=== PATIENT | male | born 1950 | race Caucasian/White ===

== ENCOUNTER → 2017-02-25 | Outpatient (CLI) | payer BC ==
[~2017-02-25] MED LIST: EPP3/2 IM
--- NOTE | 2017-02-25 12:44 | DIAGNOSTIC IMAGING REPORT ---
ULTRASOUND VENOUS DOPPLER ULTRASOUND LEFT LOWER EXTREMITY CLINICAL HISTORY: I86.8 Varicose veins COMPARISON STUDY: No previous studies for comparison. FINDINGS: Real-time and color flow Doppler imaging were performed. Flow was seen within the femoral, popliteal and calf veins with no intraluminal thrombus demonstrated. The saphenous vein is patent. There are patent superficial varicosities most pronounced within the medial left calf IMPRESSION: No evidence of left lower extremity DVT. Electronically signed by: Morris Damian M.D. 02/25/2017 12:43 PM Dictated Date/Time: 02/25/2017 12:42 PM
--- NOTE | 2017-03-02 12:01 | CODING QUERY MEDICAL NECESSITY ---
CQSUPPORTING DIAGNOSIS NEEDED A supporting diagnosis is required for the test/procedure performed on this patient in order for us to be reimbursed by the patient's insurance. Please provide a supporting diagnosis for the following test/procedure listed below next to the test name along with your signature. *If there is no additional diagnosis for this patient that would support the following test/procedure please document that below next to the test/procedure. Test(s)/Procedure(s) that require a supporting diagnosis: DOS 02/25/17 NON-INVASIVE PERIPHERAL VENOUS STUDY Provider Signature: Date: Thank you Dina Barrios Health Information Management Once completed, please kindly fax back to [phone] For questions please call [phone]
--- NOTE | 2017-03-02 12:08 | CODING QUERY MEDICAL NECESSITY ---
CQSUPPORTING DIAGNOSIS NEEDED A supporting diagnosis is required for the test/procedure performed on this patient in order for us to be reimbursed by the patient's insurance. Please provide a supporting diagnosis for the following test/procedure listed below next to the test name along with your signature. *If there is no additional diagnosis for this patient that would support the following test/procedure please document that below next to the test/procedure. Test(s)/Procedure(s) that require a supporting diagnosis: DOS 02/25/17 NON-INVASIVE PERIPHERAL VASCULAR STUDIES Provider Signature: Date: Thank you Dina Barrios Health Information Management Once completed, please kindly fax back to [phone] For questions please call [phone]
== END | disposition home or self-care (01) ==
LOC: C.ULTR 12:04
PROVIDERS: ATTEND Family Medicine
DX: I83.892 Varicose veins of left lower extremity with other complications (principal); M79.605 Pain in left leg

== ENCOUNTER → 2017-06-03 | Outpatient (CLI) | payer BC ==
[2017-06-03 13:03] LABS: ALT/SGPT 25 U/L (12-78); BLOOD UREA NITROGEN 16 mg/dl (7-18); BUN/CREATININE RATIO 12.8 (10-20); CARBON DIOXIDE 27 mmol/L (21-32); CHLORIDE 104 mmol/L (98-107); CHOLESTEROL 244 mg/dl (0-200); CREATININE 1.24 mg/dl (0.60-1.40); GLUCOSE 92 mg/dl (70-99); POTASSIUM 4.2 mmol/L (3.5-5.1); SODIUM 140 mmol/L (136-145)
[2017-06-03 13:06] LABS: ALKALINE PHOSPHATASE 37 U/L (45-117); AST/SGOT 20 U/L (15-37); CHOLESTEROL/HDL RATIO 3.7; HDL CHOLESTEROL 66 mg/dl; LDL CHOLESTEROL CALCULATED 160 mg/dl; TRIGLYCERIDES 91 mg/dl (0-150); VERY LOW DENSITY LIPOPROT CALC 18 mg/dl
== END | disposition home or self-care (01) ==
LOC: C.LABPVFM 09:12
PROVIDERS: ATTEND Family Medicine
DX: Z13.220 Encounter for screening for lipoid disorders (principal); Z13.1 Encounter for screening for diabetes mellitus; Z12.5 Encounter for screening for malignant neoplasm of prostate

== ENCOUNTER 2017-07-10 04:18 | Emergency (ER) | payer BC ==
[~2017-07-10] VITALS: Ht 182.9 cm; Wt 72.2 kg
[2017-07-10] MEDS ORDERED: ETOMIDATE 2 MG/ML 20 ML VIAL IV ONE (04:20)
[2017-07-10] MEDS ORDERED: FENTANYL CITRATE 100 MCG 2 ML CARP IV ONE (04:20)
[2017-07-10] MEDS ORDERED: SUCCINYLCHOLINE CHLORIDE 20 MG/ML 10 ML VIAL IV ONE (04:20)
[2017-07-10] MEDS ORDERED: MIDAZOLAM HCL 5 MG/ML 2ML VIAL IV ONE (04:20)
[2017-07-10 04:27] VITALS: Ht 182.9 cm; Wt 72.2 kg
--- NOTE | 2017-07-10 04:29 | EMERGENCY ROOM VISIT NOTE ---
History Report prepared by Char: Ellis Callahan Under the Supervision of: Dr. Javy Robertson M.D. First contact with patient: 04:23 Chief Complaint: STROKE SYMPTOMS Stated Complaint: CAN'T USE LEFT ARM History of Present Illness The patient is a 66 year old male who presents to the Emergency Room with stroke -like symptoms that began 1 hour ago. This HPI is limited secondary to the patient's altered mental status. Per the patient's family, he and his got back from the bar at 2130 last night. His denies any injury, trauma, falls , or fights. He then woke up from sleep 1 hour ago complaining of left-sided tingling and a left-side headache. His speech then began to slur as he progressively worsened and EMS was called. When they arrived, he was minimally responsive. En route, the patient vomited. He does not have a history of diabetes. 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 Source of History: family History Limited By: AMS Onset: 1 hour ago Position: other (Global) Symptom Intensity: moderate Quality: other (Stroke-like symptoms) Timing: constant Associated Symptoms: + headache, + vomiting, + numbness (Left sided) Note: He has a speech slur. Review of Systems ROS is limited secondary to the patient's altered mental status. Past Medical & Surgical Medical Problems: (1) Cervical arthritis Family History Omitted secondary to the patient's age. Social History Smoking Status: Former Smoker Smokeless Tobacco Use: No Alcohol Use: occasionally Marital Status: Housing Status: lives with family Current/Historical Medications Scheduled PRN Epinephrine (Epipen), 0.3 MG IM UD PRN for BEE STINGS Allergies Coded Allergies: BEE STING (Verified Allergy, Severe, ANAPHYLAXIS, 05/25/17) NO KNOWN DRUG ALLERGIES (Verified Allergy, Unknown, ., 05/25/17) Physical Exam Vital Signs Date Time Temp Pulse Resp B/P (MAP) Pulse Ox O2 Delivery O2 Flow Rate FiO2 07/10/17 05:50 70 16 141/81 100 07/10/17 05:46 68 16 134/75 100 Mechanical Ventilator 07/10/17 05:41 70 16 134/71 100 07/10/17 05:35 70 16 141/76 100 07/10/17 05:32 68 16 160/87 100 Mechanical Ventilator 07/10/17 05:27 74 16 156/79 100 07/10/17 05:23 75 16 171/80 100 07/10/17 05:16 79 16 178/108 100 07/10/17 05:13 73 15 100 07/10/17 05:11 152/86 07/10/17 05:08 66 16 100 07/10/17 05:06 100 07/10/17 05:06 150/84 07/10/17 05:03 68 16 100 07/10/17 05:02 159/78 07/10/17 05:02 37.7 07/10/17 05:00 77 16 159/78 100 Mechanical Ventilator 07/10/17 05:00 180/90 07/10/17 04:58 78 18 100 07/10/17 04:53 78 18 100 07/10/17 04:48 65 07/10/17 04:48 84 18 100 07/10/17 04:45 100 07/10/17 04:43 72 19 99 07/10/17 04:38 72 20 98 07/10/17 04:37 162/91 07/10/17 04:37 99 Room Air 07/10/17 04:36 69 16 162/91 99 Room Air 07/10/17 04:27 37.7 66 18 171/86 98 Room Air 07/10/17 04:26 171/86 07/10/17 04:20 84 20 97 Room Air Physical Exam GENERAL: Patient is altered with a GCS of less than 8. Periodically follows commands with his right hand. HEENT: No acute trauma, normocephalic atraumatic, mucous membranes moist, no nasal congestion, no scleral icterus. Equal pupils though sluggish. NECK: No stridor, no adenopathy, no meningismus, trachea is midline. LUNGS: Sonorous respirations. HEART: Regular rate and rhythm. No murmurs, rubs, gallops appreciated. ABDOMEN: Soft, nontender, bowel sounds positive, no masses appreciated, no peritonitis. BACK: No midline tenderness, no CVA tenderness EXTREMITIES: Abrasion over the left shoulder. Abrasion to the left hand and left knee. Left masters contusion. NEUROLOGIC: Left sided facial droop. Inability to use left arm. No reaction in left leg. SKIN: No rash, no jaundice, no diaphoresis. Medical Decision & Procedures ER Provider Diagnostic Interpretation: Radiology results and stated below per my review and radiologist interpretation: 1 VIEW CHEST X-RAY: No pneumothorax, no pneumonia, normal cardiac border, midline ET tube in proper position, no obvious clavicle nor rib fractures. Per me CT HEAD: Verbal read from STAT RAD Dr. Lr who notes bilateral ventricular bleed likely thalamic in origin. Laboratory Results 07/10/17 04:27 Red Blood Count 5.13, Mean Corpuscular Volume 92.4, Mean Corpuscular Hemoglobin 32.0, Mean Corpuscular Hemoglobin Concent 34.6, Mean Platelet Volume 9.7, Neutrophils (%) (Auto) 46.9, Lymphocytes (%) (Auto) 38.5, Monocytes (%) (Auto) 8.6, Eosinophils (%) (Auto) 5.7, Basophils (%) (Auto) 0.2, Neutrophils # (Auto) 4.02, Lymphocytes # (Auto) 3.30, Monocytes # (Auto) 0.74, Eosinophils # (Auto) 0.49, Basophils # (Auto) 0.02 07/10/17 04:27 Test 07/10/17 04:27 07/10/17 04:30 07/10/17 04:38 07/10/17 04:43 White Blood Count 8.58 K/uL (4.8-10.8) Red Blood Count 5.13 M/uL (4.7-6.1) Hemoglobin 16.4 g/dL (14.0-18.0) Hematocrit 47.4 % (42-52) Mean Corpuscular Volume 92.4 fL (80-100) Mean Corpuscular Hemoglobin 32.0 pg (25-34) Mean Corpuscular Hemoglobin Concent 34.6 g/dl (32-36) Platelet Count 212 K/uL (130-400) Mean Platelet Volume 9.7 fL (7.4-10.4) Neutrophils (%) (Auto) 46.9 % Lymphocytes (%) (Auto) 38.5 % Monocytes (%) (Auto) 8.6 % Eosinophils (%) (Auto) 5.7 % Basophils (%) (Auto) 0.2 % Neutrophils # (Auto) 4.02 K/uL (1.4-6.5) Lymphocytes # (Auto) 3.30 K/uL (1.2-3.4) Monocytes # (Auto) 0.74 K/uL (0.11-0.59) Eosinophils # (Auto) 0.49 K/uL (0-0.5) Basophils # (Auto) 0.02 K/uL (0-0.2) RDW Standard Deviation 43.3 fL (36.4-46.3) RDW Coefficient of Variation 12.8 % (11.5-14.5) Immature Granulocyte % (Auto) 0.1 % Immature Granulocyte # (Auto) 0.01 K/uL (0.00-0.02) Prothrombin Time 10.6 SECONDS (9.0-12.0) Prothromb Time International Ratio 1.0 (0.9-1.1) Activated Partial Thromboplast Time 25.7 SECONDS (21.0-31.0) Partial Thromboplastin Ratio 1.0 Est Creatinine Clear Calc Drug Dose 55.5 ml/min Estimated GFR () 64.2 Estimated GFR (Non- 55.4 BUN/Creatinine Ratio 10.6 (10-20) Calcium Level 8.5 mg/dl (8.5-10.1) Total Bilirubin 0.3 mg/dl (0.2-1) Direct Bilirubin 0.1 mg/dl (0-0.2) Aspartate Amino Transf (AST/SGOT) 17 U/L (15-37) Alanine Aminotransferase (ALT/SGPT) 22 U/L (12-78) Alkaline Phosphatase 34 U/L (45-117) Total Creatine Kinase 72 U/L (39-308) Creatine Kinase MB 1.0 ng/ml (0.5-3.6) Creatine Kinase MB Ratio 1.4 (0-3.0) Troponin I < 0.015 ng/ml (0-0.045) Total Protein 7.2 gm/dl (6.4-8.2) Albumin 3.6 gm/dl (3.4-5.0) Bedside Glucose 111 mg/dl (70-99) Bedside Hemoglobin 16.0 g/dl (14.0-18.0) Bedside Hematocrit 47 % (42-52) Bedside Sodium 142 mEq/L (135-144) Bedside Potassium 3.4 mEq/L (3.3-5.0) Bedside Chloride 103 mEq/L (101-112) Bedside Total CO2 26 mEq/l (24-31) Anion Gap 17.0 mmol/L (16-25) Bedside Blood Urea Nitrogen 15 mg/dl (7-18) Bedside Creatinine 1.2 mg/dl (0.6-1.3) Bedside Glucose (other) 123 mg/dl (70-99) Bedside Ionized Calcium (Christopher) 1.09 mmol/l (1.12-1.32) Ethyl Alcohol mg/dL < 3.0 mg/dl (0-3) Test 07/10/17 05:00 Urine Opiates Screen NEG (NEG) Urine Methadone, Qualitative NEG (NEG) Urine Barbiturates NEG (NEG) Urine Phencyclidine (PCP) Level NEG (NEG) Ur Amphetamine/Methamphetamine NEG (NEG) MDMA (Ecstasy) Screen NEG (NEG) Urine Benzodiazepines Screen NEG (NEG) Urine Cocaine Metabolite NEG (NEG) Urine Marijuana (THC) NEG (NEG) Influenza Type A Antigen Neg for Influ A (NEG) Influenza Type B Antigen Neg for Influ B (NEG) Laboratory results as reviewed by me. Medications Administered Medications (Trade) Dose Ordered Sig/Raisa Route Start Time Stop Time Status Last Admin Dose Admin Midazolam HCl (Versed Inj) 5 mg NOW STAT IV 07/10/17 04:48 07/10/17 04:49 DC 07/10/17 04:48 5 MG Fentanyl Citrate (Fentanyl Inj) 100 mcg NOW ONCE IV 07/10/17 05:00 07/10/17 05:01 DC 07/10/17 05:01 100 MCG Mannitol (Mannitol 25%) 50 gm NOW STAT IV 07/10/17 05:01 07/10/17 05:03 DC 07/10/17 05:15 50 GM Propofol (Diprivan Iv Emulsion 100ml Vial) 1 dose UD PRN IV 07/10/17 05:15 07/13/17 05:14 07/10/17 05:13 1 DOSE Fentanyl Citrate (Fentanyl Inj) 100 mcg NOW STAT IV 07/10/17 05:22 07/10/17 05:23 DC 07/10/17 05:27 100 MCG Midazolam HCl (Versed Inj) 5 mg NOW STAT IV 07/10/17 05:22 07/10/17 05:23 DC 07/10/17 05:28 5 MG Procedure Endotracheal Intubation Indication : Respiratory Failure/Protection of airway. The patient was on 100% oxygen via NRB prior to the procedure. Suction, airway equipment, RSI drugs, respiratory equipment, and appropriate personnel were prepared prior to the initiation of the procedure. A time out was taken. Induction was performed with Etomidate 20 mg and Succinylcholine 150 mg. After observing the clinical benefit of the medications, the airway was easily visualized utilizing a #4 glide-scope. A 8-0 size ETT tube was placed atraumatically to 25 cm at the teeth using standard technique. The cuff inflated without signs of malfunction. There were bilateral breath sounds, positive colormetric change, no gastric sounds, a good capnography waveform, and post procedure pulse oximetry was 100%. Post intubation sedation and paralysis was administered using Fentanyl and Versed. There were no complications. ECG Indication: weakness Rate (beats per minute): 65 Rhythm: normal sinus Findings: no acute ischemic change, no ectopy ED Course 0423: The patient was evaluated in room A1. A complete history and physical exam was performed. 0435: I discussed with the patient's family the need for an emergent intubation. After discussing, the family agrees to the procedure. 0438: Prior to the patient's intubation, I discussed the patient with [facility], Dr. Motta. I stated that I had to call them back as I was about to perform the intubation. The patient became worse in regards to obtundation and agonal respirations. He is not protecting his airway and started to develop inward movement/posturing of the left arm followed shortly thereafter by his right arm. He is also having increasing right pupillary size without reaction. 0440: I performed an intubation procedure at this time. Please see the procedure note for more information. 0459: The patient is now shivering and posturing. 0500: I spoke with Dr. Motta of [facility] again at this time. They accepted the patient for further evaluation and transfer to their facility. They agree with Mannitol and Propofol sedation. 0507: The patient's blood pressure is 150/76 and he is sedated. 0512: The patient's family is at bedside. We had a long discussion about the severity of the patient's condition. We are awaiting a return call from [facility]. 0522: They are now administering Mannitol and just started the Propofol. I asked for them to give some Versed and Fentanyl to bridge his sedation. 0528: [facility] is en route. 0547: The patient is stable. His right pupillary dilatation has improved but has not completely resolved. I continued discussing the case with his and daughter. Medical Decision Differential: Toxicological, Infectious, Stroke, SAH, Trauma, Electrolyte Abnormality, Hypoglycemia, Alcohol Intoxication, Drug Intoxication, Cardiac Abnormality, Sepsis, Meningitis/Encephalitis, Trauma, Excited Delirium, Serotonin Syndrome, Psychiatric, amongst other pathologies entertained. 66 yr old male with minimal PMH other than periodic Etoh use and is a smoker arrives for evaluation of acute left sided weakness and headache. Brought in by family after complaining of left paresthesias and headache around 3am that rapidly progressed. Family noted ETOH earlier in evening but had been at home for last 6+ hours without any further drinks. On arrival complete paralysis of left side with some following command and was protecting airway. Glucose OK, istat looked good and CT immediately done revealing large ICH bilateral ventricles. On return from CT rapidly worsening condition and leading to not protecting airway with obtundation and then while prepping for intubation developed left arm followed by right posturing and blown right pupil (non- reactive bilaterally). No clear seizure activity during this but difficult to tell as he periodically would have rigors (no clear infectious etiology and may be due to thalamic component bleed). He was intubated in standard fashion without difficulty. As he was posturing and likely herniating just prior to intubation I opted to start mannitol (which was also agreed by Neurosurgeon). Post intubation with versed/fentanyl until propofol fully effective. BP initially a bit high but not SBP>180 and was maintaining OK level for head bleed after sedation achieved. Discussed case with [facility] and will transfer via flight team. Patient remained stable throughout this with actually improvement in right pupillary dilatation though still minimally reactive. Throughout this I was in frequent contact with /daughter, and I was up front with fact he is quite ill and the grave concerns. Medication Reconcilliation Current Medication List: was personally reviewed by me Blood Pressure Screening Patient's blood pressure: Elevated blood pressure Monitored by accepting hospital Consults Time Called: [phone] Consulting Physician: Dr. Motta - [facility] Returned Call: [phone] They accepted the patient for further evaluation and management pending transfer. Impression Primary Impression: Intraventricular hemorrhage Additional Impressions: Respiratory failure Intracranial herniation Critical Care I have personally spent greater than 90 minutes of critical care time in the direct management of this patient. This was a life/limb threatening event. This includes time spent evaluating patient, direct bedside care, chart review, placing orders, interpretation of diagnostic studies, discussion with consultants, patient, and family members, as well as other required patient management activities. This 90 minutes is in excess of all separately billable procedures. Scribe Attestation The scribe's documentation has been prepared under my direction and personally reviewed by me in its entirety. I confirm that the note above accurately reflects all work, treatment, procedures, and medical decision making performed by me. Departure Information Dispostion Transfer Acute Care Facility Referrals Rosalva Gallegos M.D. (PCP) Forms HOME CARE DOCUMENTATION FORM, IMPORTANT VISIT INFORMATION Patient Instructions My [facility] Stroke History Time Last Known Well 1 hour ago (0330) Stroke t-PA Criteria Reviewed Does NOT meet criteria for t-PA Reason t-PA Not Given Treatment not indicated (Head bleed) Strict Exclusion Criteria CT findings of ICH or SAH Problem Qualifiers
[2017-07-10 04:37] VITALS: O2SAT 99
[2017-07-10] MEDS ORDERED: RAPID SEQUENCE INDUCTION BAG ONE (04:37)
[2017-07-10 04:41] LABS: BASO % 0.2 %; BASO ABS # 0.02 K/uL (0-0.2); EOS % 5.7 %; EOS ABS # 0.49 K/uL (0-0.5); HEMATOCRIT 47.4 % (42-52); HEMOGLOBIN 16.4 g/dL (14.0-18.0); IG# 0.01 K/uL (0.00-0.02); LYMPH % 38.5 %; MEAN CELL VOLUME 92.4 fL (80-100); MEAN CORPUSCULAR HGB CONC 34.6 g/dl (32-36); MEAN PLATELET VOLUME 9.7 fL (7.4-10.4); MONO % 8.6 %; MONO ABS # 0.74 K/uL (0.11-0.59); NEUT % 46.9 %; NEUT ABS # 4.02 K/uL (1.4-6.5); PLATELET COUNT 212 K/uL (130-400); RED CELL DISTRIBUTION WIDTH CV 12.8 % (11.5-14.5); RED CELL DISTRIBUTION WIDTH SD 43.3 fL (36.4-46.3); WHITE BLOOD COUNT 8.58 K/uL (4.8-10.8)
[2017-07-10] MEDS ORDERED: MIDAZOLAM HCL 5 MG/ML 1 ML VIAL IV STA (04:48)
[2017-07-10 04:49] LABS: PTT PATIENT 25.7 SECONDS (21.0-31.0)
[2017-07-10 04:50] LABS: ISTAT CREATININE 1.2 mg/dl (0.6-1.3); ISTAT IONIZED CALCIUM 1.09 mmol/l (1.12-1.32); ISTAT POTASSIUM 3.4 mEq/L (3.3-5.0)
[2017-07-10 04:59] LABS: POTASSIUM 3.3 mmol/L (3.5-5.1); SODIUM 139 mmol/L (136-145)
[2017-07-10] MEDS ORDERED: FENTANYL CITRATE INJ 50 MCG/1 ML 2 ML VIAL IV ONE (05:00)
[2017-07-10] MEDS ORDERED: MANNITOL 25% 50 ML VIAL IV STA (05:01)
[2017-07-10 05:02] VITALS: TEMP 37.7
[2017-07-10 05:05] LABS: BLOOD UREA NITROGEN 14 mg/dl (7-18); CALCIUM 8.5 mg/dl (8.5-10.1); CARBON DIOXIDE 27 mmol/L (21-32); CREATININE 1.32 mg/dl (0.60-1.40); GLUCOSE 120 mg/dl (70-99)
[2017-07-10 05:09] LABS: ALBUMIN 3.6 gm/dl (3.4-5.0); ALKALINE PHOSPHATASE 34 U/L (45-117); ALT/SGPT 22 U/L (12-78); AST/SGOT 17 U/L (15-37); TOTAL PROTEIN 7.2 gm/dl (6.4-8.2)
[2017-07-10] MEDS ORDERED: PROPOFOL IV EMULSION 10 MG/ML 100 ML VIAL IV PRN (05:15)
[2017-07-10] MEDS ORDERED: FENTANYL CITRATE INJ 50 MCG/1 ML 2 ML VIAL IV STA (05:22)
[2017-07-10] MEDS ORDERED: MIDAZOLAM HCL 1 MG/ML 2ML VIAL IV STA (05:22)
[2017-07-10 05:50] VITALS: BP 141/81; PULSE 70; O2SAT 100
[2017-07-10 05:50] LABS: INFLUENZA B ANTIGEN Neg for Influ B (NEG)
--- NOTE | 2017-07-10 07:22 | DIAGNOSTIC IMAGING REPORT ---
CT HEAD WITHOUT CONTRAST (CT) CLINICAL HISTORY: Stroke. Left arm paralysis. COMPARISON STUDY: No previous studies for comparison. TECHNIQUE: Axial CT of the brain is performed from the vertex to the skull base. IV contrast was not administered for this examination. A dose lowering technique was utilized adhering to the principles of ALARA. CT DOSE: 614.27 mGy.cm FINDINGS: There is no CT evidence of acute cortical infarction. There is a 3 cm hemorrhage involving the right and central midbrain with extension to the right thalamus. There is intraventricular blood within the lateral third and fourth ventricles. There is mild mass effect with very slight leftward shift of the third ventricle. There are patchy white matter hypodensities likely on a small vessel basis. There is no evidence of acute sinusitis IMPRESSION: 1. Acute right thalamic and midbrain hemorrhage measuring 3 cm. 2. Intraventricular extension of hemorrhage 3. Mild hydrocephalus 4. 5 mm of maximal right to left midline shift Electronically signed by: Morris Damian M.D. 07/10/2017 7:21 AM Dictated Date/Time: 07/10/2017 7:17 AM
--- NOTE | 2017-07-10 08:13 | DIAGNOSTIC IMAGING REPORT ---
CHEST ONE VIEW PORTABLE CLINICAL HISTORY: Stroke. Respiratory failure. COMPARISON STUDY: 07/30/2012 FINDINGS: There is an endotracheal tube 37 mm above the serina. The heart is normal in size. There is no focal pulmonary consolidation. No pleural effusions are visualized. There is no failure. There is a 1 cm opacity at the right lung base. This likely represents a nipple shadow.[ IMPRESSION: 1. Endotracheal tube 37 mm above the serina. No evidence of focal pulmonary consolidation. Electronically signed by: Morris Damian M.D. 07/10/2017 8:12 AM Dictated Date/Time: 07/10/2017 8:11 AM
--- NOTE | 2017-07-13 08:55 | NUR ---
Stroke alert cancelled at 0436 on 07/[address] findings.
[2017-09-06] MEDS ORDERED: AMLO5TAB3 PEG (00:08)
== END 2017-07-10 05:10 | disposition short-term general hospital (02) ==
LOC: C.EDB 04:19 → C.EDA 05:10
DX: I61.5 Nontraumatic intracerebral hemorrhage, intraventricular (principal); J96.90 Respiratory failure, unspecified, unspecified whether with hypoxia or hypercapnia; G93.5 Compression of brain; G81.94 Hemiplegia, unspecified affecting left nondominant side; R29.810 Facial weakness; R47.81 Slurred speech; M47.812 Spondylosis without myelopathy or radiculopathy, cervical region; S40.212A Abrasion of left shoulder, initial encounter; S60.512A Abrasion of left hand, initial encounter; S80.212A Abrasion, left knee, initial encounter; S80.12XA Contusion of left lower leg, initial encounter; X58.XXXA Exposure to other specified factors, initial encounter; F17.210 Nicotine dependence, cigarettes, uncomplicated

== ENCOUNTER 2017-09-05 21:25 | Emergency (ER) | payer BC ==
[~2017-09-05] VITALS: Ht 177.8 cm; Wt 68.0 kg
[2017-09-05] MEDS ORDERED: SODIUM CHLORIDE 0.9% 1000ML 1,000 ML IV STA (21:38)
[2017-09-05 21:48] VITALS: Ht 177.8 cm; Wt 68.0 kg
--- NOTE | 2017-09-05 21:55 | EMERGENCY ROOM VISIT NOTE ---
History Report prepared by Char: Mook Sanchez Under the Supervision of: Dr. Kim Rizo M.D. First contact with patient: 21:32 Chief Complaint: GI ASSESSMENT Stated Complaint: GI ASSESSMENT History of Present Illness The patient is a 66 year old male who presents to the Emergency Room with complaints of intermittent vomiting beginning 7.5 hours ago. The patient's states the patient vomited three times today, and it was coffee ground. She reports the patient's vomit was tested, and it was positive for blood. The notes the patient will cough, start to gag, and then he would vomit. She states he lives at [facility]. The reports the patient vomits after he is laid down flat in the bed. 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 The states the patient the patient had stuff pulled out of his stomach after feeding , and it was a frederick color. She reports he had a headache, but it has resolved. The notes the patient's cough is not "forceful," but he vomits after he coughs a lot as well. She states the patient was admitted in 2013 for diarrhea and vomiting. The reports the patient has stopped smoking 2 years ago. Source of History: patient Onset: 7.5 hours ago Position: other (global) Quality: other (vomiting) Timing: intermittent Associated Symptoms: No headache (resolved) Note: Associated symptoms: blood in vomit, frederick brown color from his stomach Review of Systems See HPI for pertinent positives & negatives. A total of 10 systems reviewed and were otherwise negative. Past Medical & Surgical Medical Problems: (1) Cervical arthritis Family History Patient reports no known family medical history. Social History Smoking Status: Former Smoker Alcohol Use: occasionally Marital Status: Housing Status: assisted living Occupation Status: retired Current/Historical Medications Scheduled Amlodipine (Norvasc), 5 MG PEG QAM Artificial Saliva (Oral Relief Menan For Dry), 2 SPRAYS PO Q4 Docusate Sodium (Docusate Sodium), 100 MG PEG AMHS Doxazosin Mesylate (Cardura), 2 MG PEG QAM Enoxaparin (Lovenox), 30 MG SQ Q12H Enteral Nutrition Formula (Jevity 1.5 Valentín), 120 ML PEG TID Nutritional Supplements (Jevity 1.5 Valentín), HS Omeprazole (Prilosec), 20 MG PEG QAM Sennosides (Senna), 5 ML PEG QAM [peg tube flush], 30 ML PEG TID [peg tube flush], 30 ML PEG TID [peg tube flush], 200 ML PEG TID Scheduled PRN Acetaminophen (Tylenol Children's Susp), 650 MG PEG Q4 PRN for Pain or Fever Promethazine (Phenergan Suppository), 25 MG AL Q6H PRN for Nausea Allergies Coded Allergies: BEE STING (Verified Allergy, Severe, ANAPHYLAXIS, 09/05/17) NO KNOWN DRUG ALLERGIES (Verified Allergy, Unknown, ., 09/05/17) Physical Exam Vital Signs Date Time Temp Pulse Resp B/P (MAP) Pulse Ox O2 Delivery O2 Flow Rate FiO2 09/06/17 02:39 37.1 93 20 122/67 95 09/06/17 02:03 93 20 122/67 95 Room Air 09/06/17 01:15 93 22 148/82 09/06/17 01:13 83 09/05/17 23:47 86 20 136/104 95 Room Air 09/05/17 22:41 76 22 127/84 94 Room Air 09/05/17 21:57 77 09/05/17 21:48 37.1 82 20 127/84 Room Air Physical Exam Vital signs reviewed. General: Well-appearing 66 year old male, in no significant distress. Moist cough. HEENT: No scleral icterus, PERRLA, neck supple. Atraumatic. Cardiovascular: Regular rate and rhythm, no extra sounds. Pulmonary: Poor inspiratory effort, but generally clear lungs otherwise. Moist cough. Abdomen: Soft, nontender, nondistended, positive bowel sounds. Feeding tube to the mid-abdomen. Rectal: Soft, light, brown stool in the rectum with no blood appreciated. No impaction appreciated. Musculoskeletal: Atraumatic, no peripheral edema. Neurologic: Patient awake alert and oriented x 3. Left upper and lower extremity hemiplegia. Skin: Warm, dry, no rash Medical Decision & Procedures ER Provider Diagnostic Interpretation: Radiology results as stated below per my review and radiologist interpretation: CHEST ONE VIEW PORTABLE CLINICAL HISTORY: vomiting, congestion nausea. Vomiting. COMPARISON STUDY: 07/10/2017 FINDINGS: Mild stable cardia megaly. Drainage catheter possibly representing a shunt catheter overlying the right hemithorax. Lungs are clear. Minimal chronic atelectatic change left base. IMPRESSION: Chronic change. No acute process. The above report was generated using voice recognition software. It may contain grammatical, syntax or spelling errors. Electronically signed by: Christiano eWstfall M.D. 09/05/2017 9:52 PM Dictated Date/Time: 09/05/2017 9:[address] HEAD: Comparison is made to prior CT head on 07/10/2017. Interval placement of a right frontal approach ventriculoperitoneal shunt catheter which terminates near the foramen of Valadez. Decreased size of the ventricles without evidence of ventriculomegaly. No acute intracranial abnormality identified. Resolution of previously visualized hemorrhage. Encephalomalacia in the right midbrain and thalamus in the region of prior hemorrhage. Mild chronic small vessel ischemic disease and cerebral volume loss. Right lens implant. Small polyp versus mucous retention cyst in the left maxillary sinus. Radiologist: Naif Mederos MD Study ready at 2331 and initial results transmitted at 0000. CT ABDOMEN & PELVIS with contrast: Comparison is made to prior CT abdomen/pelvis on 07/31/12. Trace bilateral pleural effusions. Associated atelectasis. Similar to slightly increased size of probably hemangiomas in the liver. Suggestion of hypodense stones in the gallbladder. No CT evidence of acute cholecystitis. Small hiatal hernia. Small left renal cyst. Small hypodensities in the right kidney are too small to definitively characterize. No hydronephrosis or stone. Ventriculoperitoneal shunt catheter terminates in the left pelvis. Trace free fluid in the pelvis. Mild prostatomegaly. Moderate stool in the rectum with minimal perirectal fat stranding and trace presacral fluid may represent fecal impaction with mild stercoral inflammation. G-tube in place. No bowel obstruction. Mild prominence of fluid and gas-filled small bowel loops are nonspecific but may represent enteritis. Chronic appearing deformity of the left ilium. Radiologist: Naif Mederos MD Study ready at 2333 and initial results transmitted at 0009. Laboratory Results 09/05/17 21:58 Red Blood Count 5.55, Mean Corpuscular Volume 91.4, Mean Corpuscular Hemoglobin 31.5, Mean Corpuscular Hemoglobin Concent 34.5, Mean Platelet Volume 10.6, Neutrophils (%) (Auto) 81.7, Lymphocytes (%) (Auto) 11.6, Monocytes (%) (Auto) 5.9, Eosinophils (%) (Auto) 0.6, Basophils (%) (Auto) 0.1, Neutrophils # (Auto) 8.07, Lymphocytes # (Auto) 1.14, Monocytes # (Auto) 0.58, Eosinophils # (Auto) 0.06, Basophils # (Auto) 0.01 09/05/17 21:58 Test 09/05/17 21:58 09/05/17 22:03 White Blood Count 9.87 K/uL (4.8-10.8) Red Blood Count 5.55 M/uL (4.7-6.1) Hemoglobin 17.5 g/dL (14.0-18.0) Hematocrit 50.7 % (42-52) Mean Corpuscular Volume 91.4 fL (80-100) Mean Corpuscular Hemoglobin 31.5 pg (25-34) Mean Corpuscular Hemoglobin Concent 34.5 g/dl (32-36) Platelet Count 177 K/uL (130-400) Mean Platelet Volume 10.6 fL (7.4-10.4) Neutrophils (%) (Auto) 81.7 % Lymphocytes (%) (Auto) 11.6 % Monocytes (%) (Auto) 5.9 % Eosinophils (%) (Auto) 0.6 % Basophils (%) (Auto) 0.1 % Neutrophils # (Auto) 8.07 K/uL (1.4-6.5) Lymphocytes # (Auto) 1.14 K/uL (1.2-3.4) Monocytes # (Auto) 0.58 K/uL (0.11-0.59) Eosinophils # (Auto) 0.06 K/uL (0-0.5) Basophils # (Auto) 0.01 K/uL (0-0.2) RDW Standard Deviation 45.2 fL (36.4-46.3) RDW Coefficient of Variation 13.5 % (11.5-14.5) Immature Granulocyte % (Auto) 0.1 % Immature Granulocyte # (Auto) 0.01 K/uL (0.00-0.02) Prothrombin Time 10.5 SECONDS (9.0-12.0) Prothromb Time International Ratio 1.0 (0.9-1.1) Activated Partial Thromboplast Time 32.1 SECONDS (21.0-31.0) Partial Thromboplastin Ratio 1.2 Anion Gap 10.0 mmol/L (3-11) Est Creatinine Clear Calc Drug Dose 79.2 ml/min Estimated GFR () 103.5 Estimated GFR (Non- 89.3 BUN/Creatinine Ratio 17.2 (10-20) Calcium Level 9.5 mg/dl (8.5-10.1) Magnesium Level 2.2 mg/dl (1.8-2.4) Total Bilirubin 0.4 mg/dl (0.2-1) Direct Bilirubin 0.1 mg/dl (0-0.2) Aspartate Amino Transf (AST/SGOT) 48 U/L (15-37) Alanine Aminotransferase (ALT/SGPT) 100 U/L (12-78) Alkaline Phosphatase 57 U/L (45-117) Total Protein 8.6 gm/dl (6.4-8.2) Albumin 3.3 gm/dl (3.4-5.0) Lipase 195 U/L (73-393) Bedside Troponin I < 0.030 ng/ml (0-0.045) Laboratory results per my review. Medications Administered Medications (Trade) Dose Ordered Sig/Raisa Route Start Time Stop Time Status Last Admin Dose Admin Sodium Chloride 1,000 ml @ 150 mls/hr Q6H40M STAT IV 09/05/17 21:38 09/06/17 03:05 DC 09/05/17 21:38 150 MLS/HR Ondansetron HCl (Zofran Inj) 4 mg NOW STAT IV 09/05/17 22:56 09/05/17 22:57 DC 09/05/17 22:56 4 MG Promethazine HCl 12.5 mg/Sodium Chloride 50.5 ml @ 204 mls/hr NOW STAT IV 09/06/17 00:53 09/06/17 01:07 DC 09/06/17 01:14 204 MLS/HR ECG Per My Interpretation Indication: nausea Rate (beats per minute): 87 Rhythm: normal sinus Findings: no acute ischemic change, no ectopy, other (Normal axis. Normal intervals.) ED Course 2136: Past medical records reviewed. The patient was evaluated in room B03B. A complete history and physical examination was performed. 2137: Ordered Sodium Chloride 1000 ml @ 150 mls/hr IV 2256: Ordered Ondansetron HCl 4mg IV 0031: Upon reevaluation, the patient appeared to have improvement of his symptoms. I discussed findings with him and his . They verbalized agreement of the treatment plan. The patient will be discharged to [facility] when transport arrives. 0053: Ordered Promethazine HCl 12.5 mg/Sodium Chloride 50.5 ml @ 204 mls/hr IV 0100: Ordered Ondansetron HCl 1 homepack PO Medical Decision Differential diagnosis: Etiologies such as gastroenteritis, food borne illness, infections, appendicitis , diverticulitis, inflammatory bowel disease, obstruction, GI bleed, biliary pathology, as well as others were entertained. This patient was evaluated and appeared to be in no significant distress. IV access was obtained and laboratory work was drawn. The patient was hydrated with normal saline solution. He was given Zofran 4 mg IV for nausea. Physical examination reveals chronically ill man with a PEG tube patient recently had a hemorrhagic stroke. Patient denied any amount of nausea on my exam. His abdominal exam is fairly benign. 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 CT scan of the abdomen and pelvis was performed and is read as above. There is no acute pathology to explain the vomiting. Patient's laboratory work reveals only slightly elevated liver enzymes. The patient did vomit while in the emergency department. He was then given Phenergan 12.5 mg IV with good results. CT scan of the abdomen and pelvis is concerning for a fecal impaction however rectal exam reveals soft stool without evidence of gross blood. Chest x -ray was performed to evaluate for evidence of aspiration however this study is negative. Patient's states that he is on tube feeds exclusively and is on a pretty significant bowel regimen. I suspect the vomiting is likely viral in etiology. They will need to continue checking residual volumes prior to tube feeds. Patient was discharged with a prescription for Phenergan suppositories to be used as needed for nausea. He'll follow-up with the PCP for reevaluation this week and return to the ER for worsening of symptoms or any medical concerns. Medication Reconcilliation Current Medication List: was personally reviewed by me Blood Pressure Screening Patient's blood pressure: Elevated blood pressure Blood pressure disposition: Elevated BP felt to be situational Impression Primary Impression: Coffee ground emesis Scribe Attestation The scribe's documentation has been prepared under my direction and personally reviewed by me in its entirety. I confirm that the note above accurately reflects all work, treatment, procedures, and medical decision making performed by me. Departure Information Dispostion Home / Self-Care Prescriptions Promethazine (Phenergan Suppository) 25 Mg Supp 25 MG AL Q6H Y for Nausea, #10 SUPP Prov: Kim Rizo M.D. 09/06/17 Referrals Rosalva Gallegos M.D. (PCP) Forms HOME CARE DOCUMENTATION FORM, IMPORTANT VISIT INFORMATION Patient Instructions My [facility] Additional Instructions Diagnosis: Coffee-ground emesis Increase the Prilosec to 20 mg twice daily for the next 2 weeks. Phenergan suppository every 6 hours as needed for nausea. Monitor for blood in the stools. Monitor for residual volumes between feeds. Follow-up with your physician this week for reevaluation. Return to the ER for worsening of symptoms or any medical concerns.
[2017-09-05 22:08] LABS: BASO % 0.1 %; BASO ABS # 0.01 K/uL (0-0.2); EOS % 0.6 %; EOS ABS # 0.06 K/uL (0-0.5); HEMATOCRIT 50.7 % (42-52); HEMOGLOBIN 17.5 g/dL (14.0-18.0); IG# 0.01 K/uL (0.00-0.02); LYMPH % 11.6 %; LYMPH ABS # 1.14 K/uL (1.2-3.4); MEAN CELL VOLUME 91.4 fL (80-100); MEAN CORPUSCULAR HEMOGLOBIN 31.5 pg (25-34); MEAN CORPUSCULAR HGB CONC 34.5 g/dl (32-36); MEAN PLATELET VOLUME 10.6 fL (7.4-10.4); MONO % 5.9 %; MONO ABS # 0.58 K/uL (0.11-0.59); NEUT % 81.7 %; NEUT ABS # 8.07 K/uL (1.4-6.5); PLATELET COUNT 177 K/uL (130-400); RED CELL DISTRIBUTION WIDTH CV 13.5 % (11.5-14.5); RED CELL DISTRIBUTION WIDTH SD 45.2 fL (36.4-46.3); WHITE BLOOD COUNT 9.87 K/uL (4.8-10.8)
[2017-09-05 22:19] LABS: PTT PATIENT 32.1 SECONDS (21.0-31.0)
[2017-09-05 22:24] LABS: ALBUMIN 3.3 gm/dl (3.4-5.0); CALCIUM 9.5 mg/dl (8.5-10.1); CREATININE 0.87 mg/dl (0.60-1.40); POTASSIUM 4.4 mmol/L (3.5-5.1)
[2017-09-05 22:27] LABS: TOTAL PROTEIN 8.6 gm/dl (6.4-8.2)
[2017-09-05] MEDS ORDERED: ONDANSETRON INJ 2 MG/ML 2 ML VIAL IV STA (22:56)
[2017-09-05] MEDS ORDERED: SENN8.8S5 PEG (23:56)
[2017-09-05] MEDS ORDERED: OMEP20CA59 PEG (23:58)
[2017-09-05] MEDS ORDERED: OMEP20TA14 PO (23:58)
[2017-09-05] MEDS ORDERED: ENOX30IN4 SQ (23:59)
[2017-09-06] MEDS ORDERED: NUTR-673 PEG (00:05)
[2017-09-06] MEDS ORDERED: NUTR-673 (00:05)
[2017-09-06] MEDS ORDERED: ACET5LIQ PEG (00:08)
[2017-09-06] MEDS ORDERED: AMLO-110 PEG (00:08)
[2017-09-06] MEDS ORDERED: DOXA2TAB PEG (00:11)
[2017-09-06] MEDS ORDERED: DOCU5LIQ PEG (00:11)
[2017-09-06] MEDS ORDERED: ARTI1SPR3 PO (00:13)
[2017-09-06] MEDS ORDERED: [UNRECOGNIZED DRUG - OTHER] PEG (00:23)
[2017-09-06] MEDS ORDERED: PROMETHAZINE HCL INJ 12.5 MG in SODIUM CHLORIDE 0.9% 50ML 50 ML IV STA (00:53)
[2017-09-06] MEDS ORDERED: PROM1SUP19 PR (00:56)
[2017-09-06] MEDS ORDERED: ONDANSETRON HOME PACK 4MG OD TAB PO ONE (01:00)
[2017-09-06 02:39] VITALS: BP 122/67; PULSE 93; TEMP 37.1; O2SAT 95
--- NOTE | 2017-09-06 06:37 | DIAGNOSTIC IMAGING REPORT ---
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 IV contrast was not administered for this examination. A dose lowering technique was utilized adhering to the principles of ALARA. CT DOSE: 1151.75 mGy.cm FINDINGS: There has been interval placement of a right frontal ventriculostomy catheter. Tip terminates near the roof of the third ventricle. There is been resolution of the previously described periventricular and parenchymal hemorrhage. There is a secondary area of encephalomalacia within the right midbrain and thalamus. There is no evidence of acute hemorrhage. There is no evidence of acute cortical infarction. There is no midline shift. There are minor white matter hypodensities likely on a small vessel basis. There is significant interval decrease in ventricular size. Over shunting cannot be excluded and must be correlated clinically. There is no evidence of acute sinusitis IMPRESSION: 1. Resolution of the previously identified hemorrhage 2. Area of encephalomalacia within the right midbrain and thalamus 3. No acute hemorrhage 4. Interval placement of a right frontal ventriculostomy catheter 5. Significant interval decrease in ventricular size. Over shunting cannot be excluded. Clinical correlation in this regard is advocated Electronically signed by: Morris Damian M.D. 09/06/2017 6:36 AM Dictated Date/Time: 09/06/2017 6:32 AM
--- NOTE | 2017-09-06 08:11 | DIAGNOSTIC IMAGING REPORT ---
ABDOMEN AND PELVIS CT WITH IV CONTRAST CT DOSE: 502.96 mGy.cm HISTORY: vomiting, recent CVA, coffeee ground emesis TECHNIQUE: Multiaxial CT images of the abdomen and pelvis were performed following the use of intravenous contrast. A dose lowering technique was utilized adhering to the principles of ALARA. COMPARISON STUDY: Abdomen and pelvis CT 07/31/2012. FINDINGS: Mild dependent changes seen at the lung bases. No pneumoperitoneum. No pneumatosis. Ventriculoperitoneal shunt catheter terminates in the left deep pelvis. A gastrostomy tube is in good position. No suspicious lytic or blastic osseous lesions. Mild thickening of the distal esophagus. Mild motion artifact. Normal bladder. The prostate gland is mildly enlarged. Moderate to large stool ball within the rectum measuring 6.7 cm. Mild to moderate rectal wall thickening with mild perirectal edema. This is best seen on image 77. The gallbladder, spleen, adrenal glands, and pancreas are unremarkable. No hydronephrosis. Bilateral renal hypodense lesions favor cysts. There are 2 lesions within the right hepatic lobe which demonstrate discontinuous peripheral nodular enhancement. These are stable to slightly increased in size and therefore likely represent hemangiomas. The largest lesion measures 2.9 cm. No dilated loops of bowel to suggest an obstruction. Moderate well-formed stool seen throughout the colon. No retroperitoneal lymphadenopathy. IMPRESSION: 1. Moderate to large stool ball within the rectum with mild to moderate rectal wall thickening and mild perirectal edema. This suggests a nonspecific proctitis, possibly representing mild stercoral inflammation. 2. No evidence for bowel obstruction. 3. Additional findings as described above. Electronically signed by: Chetan Sullivan M.D. 09/06/2017 8:10 AM Dictated Date/Time: 09/06/2017 8:04 AM
== END 2017-09-06 02:41 | disposition home or self-care (01) ==
LOC: EDBD 21:25 → C.EDB 21:29
DX: K92.0 Hematemesis (principal); Z87.891 Personal history of nicotine dependence; Z91.030 Bee allergy status

== ENCOUNTER → 2017-11-16 | Outpatient (CLI) | payer BC ==
[~2017-11-16] MED LIST changes: +ACET5LIQ PEG; +AMLO-110 PEG; +ARTI1SPR3 PO; +DOCU5LIQ PEG; +DOXA2TAB PEG; +ENOX30IN4 SQ; -EPP3/2 IM; +NUTR-673; +NUTR-673 PEG; +OMEP20CA59 PEG; +PROM1SUP19 PR; +SENN8.8S5 PEG; +[UNRECOGNIZED DRUG - OTHER] PEG
[2017-11-16 17:17] LABS: BASO % 0.2 %; BASO ABS # 0.02 K/uL (0-0.2); EOS % 1.7 %; EOS ABS # 0.14 K/uL (0-0.5); HEMATOCRIT 50.1 % (42-52); HEMOGLOBIN 17.4 g/dL (14.0-18.0); IG# 0.02 K/uL (0.00-0.02); LYMPH ABS # 1.61 K/uL (1.2-3.4); MEAN CELL VOLUME 91.8 fL (80-100); MEAN CORPUSCULAR HEMOGLOBIN 31.9 pg (25-34); MEAN CORPUSCULAR HGB CONC 34.7 g/dl (32-36); MEAN PLATELET VOLUME 11.4 fL (7.4-10.4); MONO % 6.1 %; MONO ABS # 0.49 K/uL (0.11-0.59); NEUT % 71.8 %; NEUT ABS # 5.78 K/uL (1.4-6.5); PLATELET COUNT 201 K/uL (130-400); RED CELL DISTRIBUTION WIDTH CV 13.4 % (11.5-14.5); RED CELL DISTRIBUTION WIDTH SD 44.6 fL (36.4-46.3); WHITE BLOOD COUNT 8.06 K/uL (4.8-10.8)
[2017-11-16 17:35] LABS: ALBUMIN 3.6 gm/dl (3.4-5.0); ALT/SGPT 78 U/L (12-78); AST/SGOT 28 U/L (15-37); BLOOD UREA NITROGEN 22 mg/dl (7-18); CALCIUM 9.2 mg/dl (8.5-10.1); CARBON DIOXIDE 29 mmol/L (21-32); CREATININE 0.87 mg/dl (0.60-1.40); GLUCOSE 117 mg/dl (70-99); SODIUM 134 mmol/L (136-145)
[2017-11-16 17:46] LABS: ALKALINE PHOSPHATASE 46 U/L (45-117); CHOLESTEROL 216 mg/dl (0-200); LDL CHOLESTEROL CALCULATED 143 mg/dl; TOTAL PROTEIN 7.7 gm/dl (6.4-8.2)
== END | disposition home or self-care (01) ==
LOC: C.LABPVFM 17:17
PROVIDERS: ATTEND Family Medicine
DX: I61.9 Nontraumatic intracerebral hemorrhage, unspecified (principal); K21.9 Gastro-esophageal reflux disease without esophagitis; I10 Essential (primary) hypertension; R13.10 Dysphagia, unspecified

== ENCOUNTER 2018-09-30 18:56 | Inpatient (IN) ==
--- NOTE | 2018-09-30 19:18 | Emergency Department Note ---
Entered by Olvin Salvador acting as a scribe for History of Present Illness General Chief complaint: Leg Injury/Pain Stated complaint: L SIDE LEG PAIN, HARD WARM MASS ON INNER THIGH Time Seen by Provider: 09/30/18 19:02 Source: patient and family () History of Present Illness Onset (ago): day(s) (yesterday) Location: lower extremity (left) Pain Consistency: + constant Maximum Pain Intensity: 3 Quality: + other (left leg pain) Associated symptoms: + other (Positive for left leg redness, warmth, firmness and leg swelling. Negative for CP, SOB, abdominal pain, back pain, headache, left foot pain, and fever.) The patient is a 67 year old male who presents to the emergency department with complaints of constant left leg pain beginning yesterday. Per , the patient had a stroke 15 months ago that affects his left side. She states that the patient developed some redness on his left thigh yesterday. She notes that the location was also warm, painful, and firm. She reports that the patients leg also began to swell. The patient denies any CP, SOB, abdominal pain, back pain, headache, fever, left foot pain, and recent fall. Per , the patient is not on any blood thinners. She states that the patient does not have a history of blot clots. Home Medications Home Medications Medication Instructions Recorded Confirmed Type acetaminophen [Tylenol Extra 500 mg PO Q6H PRN 09/30/18 09/30/18 History Strength] amlodipine [Norvasc] 5 mg PO QAM 09/30/18 09/30/18 History baclofen 5 mg PO TID 09/30/18 09/30/18 History doxazosin [Cardura] 2 mg PO QAM 09/30/18 09/30/18 History Allergies Allergy/AdvReac Type Severity Reaction Status Date / Time bee venom protein (honey bee) Allergy Severe ANAPHYLAXIS Verified 09/30/18 19:40 No Known Drug Allergies Allergy Unknown . Verified 09/30/18 19:40 Past Med/Surg History Medical History Cervical arthritis (Chronic) Coffee ground emesis (Acute) Stroke Family History Other No significant family history Social History Preferred Language: Barbadian Communication Ability: Impaired Hospital Cleaning Specialist Required: No Beliefs That Will Affect Care: None Current Living Situation: Spouse Current Living Situation Comment: caregiver 3x a week Other Information That Helps Us Care for You: No Feels Safe at Home: Yes Safety Concerns: Feels Safe At This Time Smoking Status: Former smoker Hx Alcohol Use: Yes Hx Substance Use: No Review of Systems See HPI for pertinent positives & negatives. and A total of 10 systems reviewed and were otherwise negative Physical Exam Vital Signs Vital Signs - 24 hr 09/30/18 18:57 09/30/18 19:14 09/30/18 20:43 Temperature 36.3 C L Temperature Source Oral Sepsis Recent Fever Within 48 Hours No Sepsis Action Taken by Nursing No Action Required Pulse Rate 87 Pulse Rate [Left Finger] 74 Pulse Rhythm Regular Pulse Strength Normal Respiratory Rate 18 20 Respiratory Effort / Characteristics Non-Labored Spontaneous Respiratory Depth Normal Respiratory Pattern Regular Blood Pressure 145/86 H Blood Pressure [Right Arm] 125/82 Blood Pressure Mean 105 Blood Pressure Mean [Right Arm] 96 Blood Pressure Position Sitting Blood Pressure Position [Right Arm] Pulse Oximetry 95 95 Oxygen Delivery Method Room Air Room Air Room Air 09/30/18 23:26 09/30/18 23:36 10/01/18 00:30 Temperature 36.9 C Temperature Source Oral Sepsis Recent Fever Within 48 Hours Sepsis Action Taken by Nursing Pulse Rate 72 Pulse Rate [Left Finger] 71 73 Pulse Rhythm Pulse Strength Respiratory Rate 20 20 18 Respiratory Effort / Characteristics Non-Labored Respiratory Depth Normal Respiratory Pattern Regular Blood Pressure 139/78 Blood Pressure [Right Arm] 144/86 H Blood Pressure Mean Blood Pressure Mean [Right Arm] 105 Blood Pressure Position Blood Pressure Position [Right Arm] Lying Pulse Oximetry 95 95 94 Oxygen Delivery Method Room Air Room Air Room Air General: Chronically ill appearing 67 year old male in no acute distress. Baseline left-sided weakness compared to right, some dysphasia from previous stroke. HEENT: Normal cephalic atraumatic. Pupils are equal round and reactive to ligh t. Extraocular movements are intact. Oropharynx is pink with moist mucous membranes. No swelling of the mouth lips or tongue. Neck: Supple with a midline trachea. No meningeal signs or stiffness, no JVD or bruits. No Stridor. Chest: Clear to auscultation bilaterally. No wheezes or rhonchi. No increased work of breathing. Heart: regular rate and rhythm. Abdomen: Soft nontender, nondistended without rebound guarding or rigidity. Extremities: No cyanosis clubbing or edema. No calf tenderness or asymmetry. Left medial thigh has an indurated area proximally that is not warm, slight pink discoloration of leg, normal pulse exam. Spine/Back. Non tender to palpation. No CVA tenderness Skin: Good turgor without rashes. Neurologic exam: Cranial nerves two through 12 are intact. Motor and sensation are intact and symmetrical throughout. Course 1904: Past medical records reviewed. The patient was evaluated in room C11, and a complete history and physical examination were performed. 2045: I reevaluated and updated the patient. 2120: Upon reevaluation, the patient is stable. I discussed the results and treatment plan with the patient. He verbalizes understanding and agreement. I discussed the patient's case with KATIE Gill. The patient will be evaluated for further management and care. Consultations Consultation #1: I reviewed the patient's case with KATIE Gill. She will evaluate the patient for further management. Time: 21:21 Administered Medications Acetaminophen (Tylenol) 500 mg PO Q6H PRN PRN Reason: Pain Stop: 10/31/18 00:29 Last Admin: 10/01/18 01:03 Dose: 500 mg Documented by: [id number] Rivaroxaban (Xarelto) 15 mg PO BID KAMRAN Stop: 10/21/18 09:01 Last Admin: 10/01/18 01:03 Dose: 15 mg Documented by: [id number] Medical Decision Making Differential Diagnosis Differential diagnoses includes: DVT, hematoma, cellulitis, abscess, and electrolyte/metabolic abnormalities. Medical Records Attestation: I reviewed the patient's medical records. Home Medications Current Medication List: was personally reviewed by me Laboratory Data Attestation: I reviewed the patient's lab results. Result diagrams: 09/30/18 20:45 09/30/18 20:45 Lab Results 09/30/18 09/30/18 09/30/18 Range/Units 19:35 19:35 19:35 WBC (4.8-10.8) K/uL RBC (4.7-6.1) M/uL Hgb (14.0-18.0) g/dL Hct (42-52) % MCV (80-100) fL MCH (25-34) pg MCHC (32-36) g/dL RDW Std Deviation (36.4-46.3) fL RDW Coeff of Aquiles (11.5-14.5) % Plt Count (130-400) K/uL MPV (7.4-10.4) fL Immature Gran % (Auto) % Neut % (Auto) % Lymph % (Auto) % [place] % (Auto) % Eos % (Auto) % Baso % (Auto) % Immature Gran # (Auto) (0.00-0.02) K/uL Neut # (Auto) (1.4-6.5) K/uL Lymph # (Auto) (1.2-3.4) K/uL [place] # (Auto) (0.11-0.59) K/uL Eos # (Auto) (0-0.5) K/uL Baso # (Auto) (0-0.2) K/uL PT Cancelled INR Cancelled APTT Cancelled PTT Ratio Cancelled Sodium 139 (136-145) mmol/L Potassium (3.5-5.1) mmol/L Chloride 104 (98-107) mmol/L Carbon Dioxide 32 (21-32) mmol/L Anion Gap 3.0 (3-11) BUN 10 (7-18) mg/dl Creatinine 0.84 (0.6-1.4) mg/dl Est Cr Clr Drug Dosing 83.3 ml/min Est GFR ( Amer) 104.3 Est GFR (Non-Af Amer) 90.0 BUN/Creatinine Ratio 11.6 (10-20) Glucose 92 (70-99) mg/dl Lactate 1.4 (0.4-2.0) mmol/L Calcium 8.7 (8.5-10.1) mg/dl Total Bilirubin 0.5 (0.2-1) mg/dl AST (15-37) U/L ALT 18 (12-78) U/L Alkaline Phosphatase 48 (45-117) U/L Total Protein 7.3 (6.4-8.2) gm/dl Albumin 3.3 L (3.4-5.0) gm/dl Globulin 4.0 (2.5-4.0) gm/dl Albumin/Globulin Ratio 0.8 L (0.9-2) 09/30/18 09/30/18 09/30/18 Range/Units 20:45 20:45 20:45 WBC 9.70 (4.8-10.8) K/uL RBC 5.38 (4.7-6.1) M/uL Hgb 17.0 (14.0-18.0) g/dL Hct 50.0 (42-52) % MCV 92.9 (80-100) fL MCH 31.6 (25-34) pg MCHC 34.0 (32-36) g/dL RDW Std Deviation 45.1 (36.4-46.3) fL RDW Coeff of Aquiles 13.3 (11.5-14.5) % Plt Count 189 (130-400) K/uL MPV 10.1 (7.4-10.4) fL Immature Gran % (Auto) 0.2 % Neut % (Auto) 73.4 % Lymph % (Auto) 16.4 % [place] % (Auto) 6.9 % Eos % (Auto) 2.9 % Baso % (Auto) 0.2 % Immature Gran # (Auto) 0.02 (0.00-0.02) K/uL Neut # (Auto) 7.12 H (1.4-6.5) K/uL Lymph # (Auto) 1.59 (1.2-3.4) K/uL [place] # (Auto) 0.67 H (0.11-0.59) K/uL Eos # (Auto) 0.28 (0-0.5) K/uL Baso # (Auto) 0.02 (0-0.2) K/uL PT 10.3 INR 1.0 APTT 29.3 PTT Ratio 1.1 Sodium (136-145) mmol/L Potassium 4.2 (3.5-5.1) mmol/L Chloride (98-107) mmol/L Carbon Dioxide (21-32) mmol/L Anion Gap (3-11) BUN (7-18) mg/dl Creatinine (0.6-1.4) mg/dl Est Cr Clr Drug Dosing ml/min Est GFR ( Amer) Est GFR (Non-Af Amer) BUN/Creatinine Ratio (10-20) Glucose (70-99) mg/dl Lactate (0.4-2.0) mmol/L Calcium (8.5-10.1) mg/dl Total Bilirubin (0.2-1) mg/dl AST 14 L (15-37) U/L ALT (12-78) U/L Alkaline Phosphatase (45-117) U/L Total Protein (6.4-8.2) gm/dl Albumin (3.4-5.0) gm/dl Globulin (2.5-4.0) gm/dl Albumin/Globulin Ratio (0.9-2) Imaging Data Radiologist's Impression: Radiology results as stated below per my review and the radiologist's interpretation: ULTRASOUND LEFT LOWER EXTREMITY VENOUS FINDINGS: There is extensive and nearly occlusive to occlusive deep venous thrombosis identified throughout the left lower extremity. This extends from the common femoral vein through the popliteal vein. There is also likely deep venous thrombosis in the calf within the peroneal plan. The anterior tibial and posterior tibial veins appear patent. Occlusive superficial venous thrombus is also seen within the greater saphenous vein at the junction with the common femoral vein. IMPRESSION: Extensive left lower extremity deep venous thrombosis as above. Electronically signed by: Chin Mendez M.D. 09/30/2018 9:07 PM ULTRASOUND LEFT LOWER EXTREMITY NONVASCULAR FINDINGS: Real-time, grayscale, and color flow sonography of the soft tissues of the left thigh is performed at the site of interest. No mass or fluid collection is identified within the left thigh. [place] appearing subcutaneous soft tissue is noted. IMPRESSION: No soft tissue abnormality is identified in the left thigh at the site of interest. Electronically signed by: Chin Mendez M.D. 09/30/2018 9:25 PM MDM Narrative This patient comes in as described above. /caregiver noticed that he has some swelling in his anterior/medial left thigh. On exam, it is indurated and mildly tender but not significantly red or warm. Distally, he has bounding pulses. This is the side that had a stroke on in the past. He does have significant residual weakness from a previous hemorrhagic stroke. IV access established blood work was obtained including blood cultures and lactic acid. Additionally, I did ultrasound to rule out DVT as well as nonvascular to evaluate for abscess or hematoma and he has had no trauma. He was reassessed frequently. He was found to have a large DVT. Given the extensive clot burden I do think he needs to be admitted/observed. He may ultimately need a filter as well. I did consult Dr. Micntyre to see him in the ER for these measures. Impression & Plan DVT (deep venous thrombosis) Discharge Plan Visit Data *Final* Discharge Date/Time: 09/30/18 23:36 Chief Complaint: Leg Injury/Pain Stated Complaint: L SIDE LEG PAIN, HARD WARM MASS ON INNER THIGH ED Provider: Kevin Hays Discharge Problem: DVT (deep venous thrombosis) Patient Disposition: Admitted As Inpatient Discharge Instructions Interventions: ED Discharge Assessment Last Done: 09/30/18 23:36 Discharge Problem: DVT (deep venous thrombosis) Qualifiers: DVT location: lower extremity Affected thrombotic vein of extremity: unspecified vein of extremity Chronicity: unspecified Laterality: left Qualified Code(s): I82.402 - Acute embolism and thrombosis of unspecified deep veins of left lower extremity The scribe's documentation has been prepared under my direction and personally reviewed by me in its entirety. I confirm that the note above accurately reflects all work, treatment, procedures, and medical decision making performed by me.
[2018-09-30 20:11] LABS: Albumin Globulin Ratio 0.8 (0.9-2); Albumin Level 3.3 gm/dl (3.4-5.0); BUN Creatinine Ratio 11.6 (10-20); Bilirubin,Total 0.5 mg/dl (0.2-1); Calcium 8.7 mg/dl (8.5-10.1); Creatinine Clr Calc Pharmacy 83.3 ml/min; Est GFR (African American) 104.3; Total Protein 7.3 gm/dl (6.4-8.2)
[2018-09-30 20:53] LABS: Basophils # (auto) 0.02 K/uL (0-0.2); Basophils % (auto) 0.2 %; Eosinophils # (auto) 0.28 K/uL (0-0.5); Eosinophils % (auto) 2.9 %; Immature Granulocytes # (auto) 0.02 K/uL (0.00-0.02); Immature Granulocytes % (auto) 0.2 %; Lymphocytes # (auto) 1.59 K/uL (1.2-3.4); Lymphocytes % (auto) 16.4 %; Mean Corpuscular Volume 92.9 fL (80-100); Mean Platelet Volume 10.1 fL (7.4-10.4); Monocytes # (auto) 0.67 K/uL (0.11-0.59); Monocytes % (auto) 6.9 %; Neutrophils # (auto) 7.12 K/uL (1.4-6.5); Neutrophils % (auto) 73.4 %; Platelet Count 189 K/uL (130-400); RDW Coefficient of Variation 13.3 % (11.5-14.5); RDW Standard Deviation 45.1 fL (36.4-46.3); Red Blood Count 5.38 M/uL (4.7-6.1)
[2018-09-30 21:06] LABS: Potassium 4.2 mmol/L (3.5-5.1)
--- NOTE | 2018-09-30 21:08 | Ultrasound Report ---
ULTRASOUND LEFT LOWER EXTREMITY VENOUS CLINICAL HISTORY: Left thigh erythema and swelling. COMPARISON STUDY: Left lower extremity venous ultrasound dated 02/25/2017. TECHNIQUE: Real-time, grayscale, and color Doppler sonography of the deep veins of the left lower ext remity was performed from the inguinal crease to the calf. Compression and augmentation were utilized . FINDINGS: There is extensive and nearly occlusive to occlusive deep venous thrombosis identified thro ughout the left lower extremity. This extends from the common femoral vein through the popliteal vein . There is also likely deep venous thrombosis in the calf within the peroneal plan. The anterior tibi al and posterior tibial veins appear patent. Occlusive superficial venous thrombus is also seen withi n the greater saphenous vein at the junction with the common femoral vein. IMPRESSION: Extensive left lower extremity deep venous thrombosis as above. Electronically signed by: Chin Mendez M.D. 09/30/2018 9:07 PM
[2018-09-30 21:10] LABS: Partial Thromboplastin Ratio 1.1; Partial Thromboplastin Time 29.3 Seconds (21.0-31.0); Prothrombin Time 10.3 Seconds (9.0-12.0)
--- NOTE | 2018-09-30 21:26 | Ultrasound Report ---
ULTRASOUND LEFT LOWER EXTREMITY NONVASCULAR CLINICAL HISTORY: Left thigh swelling and erythema. Clinical concern for abscess or hematoma. COMPARISON STUDY: Venous ultrasound of the left lower extremity performed concurrently on 09/30/2018. FINDINGS: Real-time, grayscale, and color flow sonography of the soft tissues of the left thigh is pe rformed at the site of interest. No mass or fluid collection is identified within the left thigh. Jt nd appearing subcutaneous soft tissue is noted. IMPRESSION: No soft tissue abnormality is identified in the left thigh at the site of interest. Electronically signed by: Chin Mendez M.D. 09/30/2018 9:25 PM
[2018-10-01] MEDS ORDERED: ACETAMINOPHEN 500 MG TAB PO PRN (00:30)
[2018-10-01] MEDS: RIVAROXABAN 15 MG TAB PO SCH ×3 (01:03→21:19)
--- NOTE | 2018-10-01 04:47 | History & Physical Report ---
Date of Service September 30, 2018 Assessment & Plan (1) DVT (deep venous thrombosis): Extensive LLE DVT. Patient with left hemiplegia from prior CVA. No evidence of PE, adequate saturation on room air. 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 Most likely secondary to hypertensive bleed. states that extensive workup done at [facility] was unrevealing. Blood pressure well controlled at present. -Start Xarelto 15mg po BID x 21 days then 20mg po daily (2) Status post CVA: Patient with left sided hemiplegia, dysarthria. Requires full assistance with ADLs. Per he is able to tolerate a regular diet with normal consistency liquids. He uses a urinal. PEG tube for free water flushes TID. -Continue Baclofen -Continue Amlodipine -Free water flushes, 4 oz TID F/E/N - Heplock. Free H2O as above. Monitor electrolytes and replete as needed. Regular diet as tolerated with aspiration precautions Ppx - Xarelto as above Code - DNR per discussion with patient Dispo -Observation to medical floor History of Present Illness Chief Complaint: LLE DVT Primary Care Provider: Rosalva Gallegos MD Mr. 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 He presents today with his with complaint of LLE edema, warmth and tenderness that was first noted this AM. Found to have extensive LLE DVT. He denies CP/palpitations/SOB/dizziness. He does have some tenderness in the LLE. No additional complaints at this time. Of note, he has documented history of coffee ground emesis. Per discussion with the the patient had episode of vomiting brown liquid. He was sent from [facility] to the ER but was not diagnosed with any kind of bleed. Additionally the patient has history of hematochezia, ?Crohns. The states that he does not have Crohns and thought that the hematochezia was secondary to possible infectious colitis. Allergies Allergy/AdvReac Type Severity Reaction Status Date / Time bee venom protein (honey bee) Allergy Severe ANAPHYLAXIS Verified 09/30/18 19:40 No Known Drug Allergies Allergy Unknown . 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 Surgical History History of appendectomy PEG (percutaneous endoscopic gastrostomy) status S/P TUNGSTEN REFINER shunt Family History Other No significant family history Stroke Social History Preferred Language: Amharic Communication Ability: Impaired Professor Of Journalism Required: No Beliefs That Will Affect Care: None Current Living Situation: Spouse Current Living Situation Comment: caregiver 3x a week Other Information That Helps Us Care for You: No Feels Safe at Home: Yes Safety Concerns: Feels Safe At This Time Smoking Status: Former smoker Hx Alcohol Use: Yes Hx Substance Use: No Review of Systems All systems reviewed & are unremarkable except as noted in HPI & below Physical Exam 2 Vital Signs (Past 24 Hours): Last Vital Signs Temp 36.9 C 10/01/18 00:30 Pulse 73 10/01/18 00:30 Resp 18 10/01/18 00:30 BP 144/86 H 10/01/18 00:30 Pulse Ox 94 10/01/18 00:30 Physical Exam: General: patient resting comfortably, NAD, non-toxic in appearance, AA&O x 3. Severe debility from prior CVA to include left sided hemiplegia, dysarthric speech and facial droop Skin: warm, dry, intact, no rashes or lesions HEENT: NC/AT, PERRL, EOMI, anicteric sclera, conjunctiva without injection, external ear normal to inspection and nontender, nares patent, moist mucus membranes, dentition intact, no oropharyngeal lesions, neck supple, trachea midline, no LAD, no thyromegaly, no JVD Heart: +S1/S2, regular, no m/r/g Lungs: equal air entry bilaterally, no rales/rhonchi/wheezes Abd: +BS, soft, NT/ND, no masses/organomegaly/ascites Ext: warm, 2+ pulses in UE/LE bilaterally, LLE warm/tender/red/swollen Neuro: dense hemiplegia of left side, strength 1/5, dysarthric speech, facial droop. All baseline findings per discussion with . Results & Data Laboratory Results Lab Results 09/30/18 09/30/18 09/30/18 Range/Units 19:35 19:35 19:35 WBC (4.8-10.8) K/uL RBC (4.7-6.1) M/uL Hgb (14.0-18.0) g/dL Hct (42-52) % MCV (80-100) fL MCH (25-34) pg MCHC (32-36) g/dL RDW Std Deviation (36.4-46.3) fL RDW Coeff of Aquiles (11.5-14.5) % Plt Count (130-400) K/uL MPV (7.4-10.4) fL Immature Gran % (Auto) % Neut % (Auto) % Lymph % (Auto) % [place] % (Auto) % Eos % (Auto) % Baso % (Auto) % Immature Gran # (Auto) (0.00-0.02) K/uL Neut # (Auto) (1.4-6.5) K/uL Lymph # (Auto) (1.2-3.4) K/uL [place] # (Auto) (0.11-0.59) K/uL Eos # (Auto) (0-0.5) K/uL Baso # (Auto) (0-0.2) K/uL PT Cancelled INR Cancelled APTT Cancelled PTT Ratio Cancelled Sodium 139 (136-145) mmol/L Potassium (3.5-5.1) mmol/L Chloride 104 (98-107) mmol/L Carbon Dioxide 32 (21-32) mmol/L Anion Gap 3.0 (3-11) BUN 10 (7-18) mg/dl Creatinine 0.84 (0.6-1.4) mg/dl Est Cr Clr Drug Dosing 83.3 ml/min Est GFR ( Amer) 104.3 Est GFR (Non-Af Amer) 90.0 BUN/Creatinine Ratio 11.6 (10-20) Glucose 92 (70-99) mg/dl Lactate 1.4 (0.4-2.0) mmol/L Calcium 8.7 (8.5-10.1) mg/dl Total Bilirubin 0.5 (0.2-1) mg/dl AST (15-37) U/L ALT 18 (12-78) U/L Alkaline Phosphatase 48 (45-117) U/L Total Protein 7.3 (6.4-8.2) gm/dl Albumin 3.3 L (3.4-5.0) gm/dl Globulin 4.0 (2.5-4.0) gm/dl Albumin/Globulin Ratio 0.8 L (0.9-2) 09/30/18 09/30/18 09/30/18 Range/Units 20:45 20:45 20:45 WBC 9.70 (4.8-10.8) K/uL RBC 5.38 (4.7-6.1) M/uL Hgb 17.0 (14.0-18.0) g/dL Hct 50.0 (42-52) % MCV 92.9 (80-100) fL MCH 31.6 (25-34) pg MCHC 34.0 (32-36) g/dL RDW Std Deviation 45.1 (36.4-46.3) fL RDW Coeff of Aquiles 13.3 (11.5-14.5) % Plt Count 189 (130-400) K/uL MPV 10.1 (7.4-10.4) fL Immature Gran % (Auto) 0.2 % Neut % (Auto) 73.4 % Lymph % (Auto) 16.4 % [place] % (Auto) 6.9 % Eos % (Auto) 2.9 % Baso % (Auto) 0.2 % Immature Gran # (Auto) 0.02 (0.00-0.02) K/uL Neut # (Auto) 7.12 H (1.4-6.5) K/uL Lymph # (Auto) 1.59 (1.2-3.4) K/uL [place] # (Auto) 0.67 H (0.11-0.59) K/uL Eos # (Auto) 0.28 (0-0.5) K/uL Baso # (Auto) 0.02 (0-0.2) K/uL PT 10.3 INR 1.0 APTT 29.3 PTT Ratio 1.1 Sodium (136-145) mmol/L Potassium 4.2 (3.5-5.1) mmol/L Chloride (98-107) mmol/L Carbon Dioxide (21-32) mmol/L Anion Gap (3-11) BUN (7-18) mg/dl Creatinine (0.6-1.4) mg/dl Est Cr Clr Drug Dosing ml/min Est GFR ( Amer) Est GFR (Non-Af Amer) BUN/Creatinine Ratio (10-20) Glucose (70-99) mg/dl Lactate (0.4-2.0) mmol/L Calcium (8.5-10.1) mg/dl Total Bilirubin (0.2-1) mg/dl AST 14 L (15-37) U/L ALT (12-78) U/L Alkaline Phosphatase (45-117) U/L Total Protein (6.4-8.2) gm/dl Albumin (3.4-5.0) gm/dl Globulin (2.5-4.0) gm/dl Albumin/Globulin Ratio (0.9-2) Diagnostic Findings ULTRASOUND LEFT LOWER EXTREMITY VENOUS CLINICAL HISTORY: Left thigh erythema and swelling. COMPARISON STUDY: Left lower extremity venous ultrasound dated 02/25/2017. TECHNIQUE: Real-time, grayscale, and color Doppler sonography of the deep veins of the left lower extremity was performed from the inguinal crease to the calf. Compression and augmentation were utilized. FINDINGS: There is extensive and nearly occlusive to occlusive deep venous thrombosis identified throughout the left lower extremity. This extends from the common femoral vein through the popliteal vein. There is also likely deep venous thrombosis in the calf within the peroneal plan. The anterior tibial and posterior tibial veins appear patent. Occlusive superficial venous thrombus is also seen within the greater saphenous vein at the junction with the common femoral vein. IMPRESSION: Extensive left lower extremity deep venous thrombosis as above. Electronically signed by: Chin Mendez M.D. 09/30/2018 9:07 PM Dictated: 09/30/[id number] Transcribed: 09/30/182103 Code Status & VTE Plan Code Status DNR VTE Prophylaxis Plan VTE Prophylaxis will be ordered: Yes Critical Care Time Critical Care Time: No (1) DVT (deep venous thrombosis) Affected thrombotic vein of extremity: unspecified vein of extremity Chronicity: unspecified DVT location: lower extremity Laterality: left Qualified Code(s): I82.402 - Acute embolism and thrombosis of unspecified deep veins of left lower extremity
[2018-10-01] MEDS: BACLOFEN 10 MG TAB PO SCH ×3 (09:12→21:18)
[2018-10-01] MEDS: AMLODIPINE BESYLATE 5 MG TAB PO SCH (09:13)
[2018-10-01] MEDS: DOXAZosin MESYLATE TAB 2 MG TAB PO SCH (09:13)
[2018-10-01] MEDS: TUBE FEEDING WATER FLUSH GT SCH ×3 (09:14→21:21)
[2018-10-02] MEDS: BACLOFEN 10 MG TAB PO SCH (09:06)
[2018-10-02] MEDS: AMLODIPINE BESYLATE 5 MG TAB PO SCH (09:07)
[2018-10-02] MEDS: RIVAROXABAN 15 MG TAB PO SCH (09:07)
[2018-10-02] MEDS: DOXAZosin MESYLATE TAB 2 MG TAB PO SCH (09:07)
[2018-10-02] MEDS: TUBE FEEDING WATER FLUSH GT SCH (09:08)
--- NOTE | 2018-10-02 21:22 | Discharge Summary ---
Date of Service October 02, 2018 Admission HPI Per Admitting Provider Mr. 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 He presents today with his with complaint of LLE edema, warmth and tenderness that was first noted this AM. Found to have extensive LLE DVT. He denies CP/palpitations/SOB/dizziness. He does have some tenderness in the LLE. No additional complaints at this time. Of note, he has documented history of coffee ground emesis. Per discussion with the the patient had episode of vomiting brown liquid. He was sent from [facility] to the ER but was not diagnosed with any kind of bleed. Additionally the patient has history of hematochezia, ?Crohns. The states that he does not have Crohns and thought that the hematochezia was secondary to possible infectious colitis. Principal Diagnosis LLE DVT Discharge Exam Constitutional WD/WN, vitals as above Eyes EOM intact bilaterally; no conjunctival abnormality ENMT external ear and nose normal, oropharynx normal Neck trachea midline, no thyromegaly normal visual inspection Respiratory normal respiratory effort, lungs clear to auscultation no respiratory distress Cardiovascular RRR, no murmur, no edema Gastrointestinal (Abdomen) Inspection/Auscultation: abdomen normal to inspection; abdomen not distended Musculoskeletal no cyanosis or clubbing, extremities motor strength 5/5 Skin no rashes, warm and dry Neurologic awake Speech / Cognition: + abnormal speech Left side with paraplegia Psychiatric Orientation: alert, oriented to person and cooperative Discharge Data Allergies Allergy/AdvReac Type Severity Reaction Status Date / Time bee venom protein (honey bee) Allergy Severe ANAPHYLAXIS Verified 09/30/18 19:40 No Known Drug Allergies Allergy Unknown . Verified 09/30/18 19:40 Consultations 09/30/18 21:21 ED Decision to Admit Stat Ordered Studies 09/30/18 19:14 US extremity non-vascular ltd Stat US venous doppler LE LT Stat Hospital Course (1) DVT (deep venous thrombosis): Extensive LLE DVT. Patient with left hemiplegia from prior CVA. No evidence of PE, adequate saturation on room air. 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 - Started Xarelto 15mg po BID x 21 days then 20mg po daily - Discussed risk/benefit and patient desires anticoagulation. Will follow up with PCP to determine duration, though he will have indefinite increased risk due to his hemiplegia. (2) Status post CVA: Patient with left sided hemiplegia, dysarthria. Requires full assistance with ADLs. Per he is able to tolerate a regular diet with normal consistency liquids. He uses a urinal. PEG tube for free water flushes TID. - Continue Baclofen - Continue Amlodipine - Free water flushes, 4 oz TID - Has robust outpatient PT/OT/speech with [facility]. is well-equipped at home to care for him. Total Time Total Time Spent Total Time Spent (In Minutes): 35 Total Time Includes: Examination of the Patient, Discharge Planning and Medication Reconciliation Discharge Plan Discharge Items Patient Disposition: Home - Home Health Services Reason For Visit: DVT Discharge Diagnosis: Left leg DVT Discharge Goals: Decrease discomfort, Improve disease control and Improve function Activity: Resume your previous activity Non-emergency contact: Primary Care Provider Call non-emergency contact if: you have any medication questions, your symptoms worsen, your pain is not controlled and your temperature is above 100.5 Follow-up/Referrals: Rosalva Gallegos MD [Primary Care Provider] - 10/06/18 10:00 am (Please, follow up at the [facility] with Dr. Gallegos on TuesdayOctober 06 at 10:00 am. *If you need to change this appointment, call the office at [phone].) Diet: Regular Addtl Provider Instructions: Mr. Faust, You were admitted for left leg swelling and pain that was due to a blood clot in that leg. We started you on a blood thinner called Xarelto that you will take for at least the next 3 months and may need to take longer since your left leg will always be at a higher than normal risk for blood clots due to the inability to fully move that leg. However, given you had bleeding in the brain in 2017, being on a blood thinner also has some risk as well. Please discuss this with your PCP who may refer you to a computer systems technology instructor (blood-related specialist) who may discuss the risks/benefits further. Please take the Xarelto at 15mg two times per day for 21 days, then 20 mg every day after that. Please take the medication at about the same time each day and take it with food. Please call your doctor for any bleeding or come to the hospital. Please elevate your left leg. After seeing your PCP, you can consider compression stockings on the left leg to help reduce any swelling. If the leg becomes more red, more painful, or you develop any shortness of breath, please come to the hospital right away. Prescriptions: New Xarelto 15 mg (42)- 20 mg (9) tablets,dose pack See Rx Instructions .ROUTE .COMPLEX Qty: 51 RF: 0 Continued amlodipine [Norvasc] 5 mg tablet 5 mg PO QAM RF: 0 acetaminophen [Tylenol Extra Strength] 500 mg Tablet 500 mg PO Q6H PRN (Reason: Pain) RF: 0 baclofen 10 mg tablet 5 mg PO TID RF: 0 doxazosin [Cardura] 2 mg tablet 2 mg PO QAM RF: 0 Stand-Alone Forms: [facility] Discharge Orders: Discharge Order (Routine); Ordered 10/02/18 Ordered By: Tobin Kaminski Admission Data Admit Date/Time: 09/30/18 22:29 Attending Provider: Tobin Kaminski Admit Provider: Mica Mcintyre Primary Care Provider: Rosalva Gallegos Other Providers: Tobin Kaminski Service: Medical Other Interventions: Discharge Summary Assessment (RN) Last Done: 10/02/18 12:03 DC Date/Time DO NOT enter until pt leaves facility: 10/02/18 14:16
== END 2018-10-02 14:16 | disposition home health service (06) | DRG 300 ==
LOC: ED 18:56 → 4E 22:29 → SUATTDRO 22:29 → 4E 23:36

== ENCOUNTER 2019-11-15 11:32 | Inpatient (IN) ==
[2019-11-15] MEDS ORDERED: CEFEPIME 2,000 MG/20 ML VIAL IV STA (12:07)
--- NOTE | 2019-11-15 12:15 | Emergency Department Note ---
Impression & Plan Pneumonia, Fever, Acute urinary retention, Acute kidney injury ED Provider Note NAME: WINSTON REYNOLDS AGE: 69 SEX: M : 1950 ARRIVES VIA: Walk-In INFORMANT: [Patient][, nurses] ED PROVIDER(S): [Chin Toussaint MD] CHIEF COMPLAINT: Possible infection HISTORY OF PRESENT ILLNESS: The patient is a 69-year-old male with some mental delay/cognitive issue. He is here with his . The patient presents with concerns for aspiration. The patient has apparently had 2 days of low-grade fever, some difficulty urinating and some extra gurgling sounds with his breathing. The patient's has also noticed that his lower abdomen seems tender and he seems rigid here. The patient is a very poor historian, he has the above-mentioned cognitive issues. No further history obtainable. REVIEW OF SYSTEMS: Unobtainable given the cognitive issues/cognitive delay. PMHx/PSHx: See Below SOCIAL HISTORY: See Below. PHYSICAL EXAM: GENERAL: Patient is in mild distress from pain HEENT: No acute trauma, normocephalic atraumatic, mucous membranes moist, no nasal congestion, no scleral icterus. Neck: No adenopathy, no stridor, trachea appears midline. Lungs: Patient does have some rhonchi bilaterally, his breath sounds are equal, there is no respiratory distress, no wheezing. HEART: Without murmurs gallops or rubs, regular rate and rhythm. ABDOMEN: Soft, quite tender over the lower abdomen, there may be some lower abdominal distention. EXTREMITIES: No cyanosis or edema, full range of motion of all the joints without pain or difficulty, no signs for acute trauma. NEUROLOGIC: There is some difficulty with his speech. His left side seems almost flaccid. He is awake and alert SKIN: No rash, no jaundice, no diaphoresis. Warm to the touch. DIFFERENTIAL DIAGNOSIS: Sepsis, UTI, pneumonia, metabolic, electrolyte abnormalities, urinary retention, aspiration, pyelonephritis, cardiac sources, intracerebral event, toxicologic, neurologic, as well as other pathologies. EMERGENCY DEPARTMENT COURSE/PROCEDURES: ECG: Indication was abdominal pain. EKG shows a normal sinus rhythm with a rate of 84. The QTc is 415. There is poor R wave progression. No ST elevation, no PVCs. Continuous Cardiac Monitoring: An order was placed for continuous cardiac monitoring. The monitor shows a rate of 87 with normal sinus rhythm. Bladder scan showed over 1000 cc, significant retention. MEDICAL DECISION MAKING: There is no leukocytosis or concerning anemia. The INR is elevated consistent with his anticoagulation. There was evidence for acute kidney injury with a creatinine of 1.7. Sodium was somewhat low at 133. Lactic acid level was not elevated making sepsis less likely. Procalcitonin level was slightly elevated. There was no worrisome liver enzyme elevations. EKG showed a sinus rhythm, no acute ischemia. Cardiac enzyme testing x1 was not consistent with acute cardiac injury. Urinalysis showed significant hematuria, some bacteria was seen. A urine culture is pending. Chest film showed some potential lower lung atelectasis. Abdominal and pelvis CT showed some inflammation to the urinary system consistent with possible infection. No urinary obstruction was seen. No diverticulitis or appendicitis. There was a left lower lung pneumonia suspected. The patient presents with fever, increased respiratory secretions and some difficulty urinating. He had a distended bladder by exam and by bladder scan. A Ly catheter was placed and a significant amount of urine drained, the urine was quite bloody appearing but the patient felt better after the catheter placement. The patient was given IV saline, 1 L. This was given for hydration. He received IV cefepime empirically for antibiotic coverage. Given the potential pneumonia, given his cognitive disability, given the urinary retention and possible UTI, given the acute kidney injury, I do think a hospital stay is warranted. I spoke to the patient and his , I spoke with case management. The on-call hospitalist was consulted. Past Med/Surg History Medical History Hemorrhagic stroke (Inactive) On anticoagulant therapy xarelto daily Surgical History History of appendectomy History of carpal tunnel release of both wrists History of colonoscopy History of esophagogastroduodenoscopy (EGD) History of eye surgery retina sx on right eye History of fusion of cervical spine "stiff neck, cant tilt head all the way back" History of phacoemulsification of cataract of right eye with intraocular lens implantation PEG (percutaneous endoscopic gastrostomy) status 07/2017 S/P TELEHE[employer] COORDINATOR shunt Family History Uncle Colorectal cancer Father Myocardial infarction Mother Stroke Other No family history of adverse response to anesthesia Denies family history of Prostate cancer Breast cancer Social History Preferred Language: Latvian Communication Ability: Impaired Substance Abuse Technician Required: No Beliefs That Will Affect Care: None Current Living Situation: Spouse Current Living Situation Comment: caregiver 3x a week Feels Safe at Home: Yes Smoking Status: Former smoker Second Hand Exposure: No ; Hx Alcohol Use: Yes Alcohol type: hard liquor Hx Substance Use: No Allergies Allergies Allergy/AdvReac Type Severity Reaction Status Date / Time bee venom protein (honey bee) Allergy Severe ANAPHYLAXIS Verified 11/15/19 13:38 No Known Drug Allergies Allergy Unknown . Verified 11/15/19 13:38 Home Meds Home Medications Medication Instructions Recorded Confirmed acetaminophen [Tylenol Extra 500 mg PO Q6H PRN 09/30/18 11/15/19 Strength] epinephrine 1 mg/mL injection 0.3 mg SQ UD PRN 01/15/19 11/15/19 solution amlodipine 5 mg PO QPM 11/15/19 11/15/19 baclofen 5 mg PO BID 11/15/19 11/15/19 doxazosin 2 mg PO QPM 11/15/19 11/15/19 Previous Rx's Medication Instructions Recorded rivaroxaban 20 mg tablet 20 mg PO DAILY #90 tab 11/06/19 simvastatin 20 mg tablet 20 mg PO DAILY #90 tab 11/06/19 Results & Data (ED) Vital Signs Vital Signs - 24 hr 11/15/19 11:41 11/15/19 11:53 11/15/19 11:57 Temperature 37 C Temperature Source Oral Pulse Rate 89 89 90 Pulse Rate from SpO2 Sensor 90 90 Respiratory Rate 22 22 20 Blood Pressure 122/81 143/87 H Blood Pressure Mean 94 103 Pulse Oximetry 91 92 92 Oxygen Delivery Method Room Air Sepsis Recent Fever Within 48 Hours No Sepsis New/Unexplained Change in Mental Status No Sepsis Action Taken by Nursing No Action Required 11/15/19 12:00 11/15/19 12:01 11/15/19 12:15 Temperature Temperature Source Pulse Rate 90 88 94 H Pulse Rate from SpO2 Sensor 89 88 Respiratory Rate 22 24 22 Blood Pressure 130/83 Blood Pressure Mean 93 Pulse Oximetry 92 92 92 Oxygen Delivery Method Room Air Sepsis Recent Fever Within 48 Hours Sepsis New/Unexplained Change in Mental Status Sepsis Action Taken by Nursing 11/15/19 12:30 11/15/19 12:46 11/15/19 13:00 Temperature Temperature Source Pulse Rate 89 85 92 H Pulse Rate from SpO2 Sensor 88 86 92 H Respiratory Rate 26 H 25 H 24 Blood Pressure 138/79 134/81 Blood Pressure Mean 106 99 Pulse Oximetry 93 93 93 Oxygen Delivery Method Sepsis Recent Fever Within 48 Hours Sepsis New/Unexplained Change in Mental Status Sepsis Action Taken by Nursing 11/15/19 13:01 11/15/19 13:30 11/15/19 13:31 Temperature Temperature Source Pulse Rate 90 105 H 88 Pulse Rate from SpO2 Sensor 89 103 H 88 Respiratory Rate 22 24 20 Blood Pressure 120/81 Blood Pressure Mean 91 Pulse Oximetry 93 92 91 Oxygen Delivery Method Sepsis Recent Fever Within 48 Hours Sepsis New/Unexplained Change in Mental Status Sepsis Action Taken by Nursing 11/15/19 14:04 11/15/19 14:12 11/15/19 14:13 Temperature Temperature Source Pulse Rate 91 H 87 84 Pulse Rate from SpO2 Sensor 89 87 84 Respiratory Rate 17 24 22 Blood Pressure 125/81 Blood Pressure Mean 95 Pulse Oximetry 91 92 92 Oxygen Delivery Method Sepsis Recent Fever Within 48 Hours Sepsis New/Unexplained Change in Mental Status Sepsis Action Taken by Nursing 11/15/19 14:30 11/15/19 14:31 11/15/19 15:00 Temperature Temperature Source Pulse Rate 84 84 82 Pulse Rate from SpO2 Sensor 84 84 82 Respiratory Rate 23 23 19 Blood Pressure 128/81 117/78 Blood Pressure Mean 95 89 Pulse Oximetry 91 91 93 Oxygen Delivery Method Sepsis Recent Fever Within 48 Hours Sepsis New/Unexplained Change in Mental Status Sepsis Action Taken by Nursing 11/15/19 15:01 Temperature Temperature Source Pulse Rate 81 Pulse Rate from SpO2 Sensor 80 Respiratory Rate 24 Blood Pressure Blood Pressure Mean Pulse Oximetry 93 Oxygen Delivery Method Sepsis Recent Fever Within 48 Hours Sepsis New/Unexplained Change in Mental Status Sepsis Action Taken by Group Home Medications Current Medication List: was personally reviewed by me Laboratory Data Attestation: I reviewed the patient's lab results. Result diagrams: 11/15/19 12:25 11/15/19 12:25 Lab Results 11/15/19 11/15/19 11/15/19 Range/Units 12:25 12:25 12:25 WBC 9.98 (4.8-10.8) K/uL RBC 5.30 (4.7-6.1) M/uL Hgb 16.6 (14.0-18.0) g/dL Hct 47.8 (42-52) % MCV 90.2 (80-100) fL MCH 31.3 (25-34) pg MCHC 34.7 (32-36) g/dL RDW Std Deviation 45.0 (36.4-46.3) fL RDW Coeff of Aquiles 13.7 (11.5-14.5) % Plt Count 176 (130-400) K/uL MPV 10.9 H (7.4-10.4) fL Immature Gran % (Auto) 0.4 % Neut % (Auto) 78.9 % Lymph % (Auto) 8.7 % Gregory % (Auto) 9.0 % Eos % (Auto) 2.8 % Baso % (Auto) 0.2 % Immature Gran # (Auto) 0.04 H (0.00-0.02) K/uL Neut # (Auto) 7.87 H (1.4-6.5) K/uL Lymph # (Auto) 0.87 L (1.2-3.4) K/uL Gregory # (Auto) 0.90 H (0.11-0.59) K/uL Eos # (Auto) 0.28 (0-0.5) K/uL Baso # (Auto) 0.02 (0-0.2) K/uL PT 17.1 H (9.0-12.0) Seconds INR 1.7 H (0.9-1.1) APTT 51.7 H* (21.0-31.0) Seconds PTT Ratio 1.9 Sodium 133 L (136-145) mmol/L Potassium 3.8 (3.5-5.1) mmol/L Chloride 99 (98-107) mmol/L Carbon Dioxide 26 (21-32) mmol/L Anion Gap 8.0 (3-11) BUN 50 H (7-18) mg/dl Creatinine 1.70 H (0.6-1.4) mg/dl Est Cr Clr Drug Dosing 39.1 ml/min Est GFR ( Amer) 46.3 Est GFR (Non-Af Amer) 40.0 BUN/Creatinine Ratio 29.6 H (10-20) Glucose 134 H (70-99) mg/dl Lactate (0.4-2.0) mmol/L Calcium 8.7 (8.5-10.1) mg/dl Magnesium 2.3 (1.8-2.4) mg/dl Total Bilirubin 0.9 (0.2-1) mg/dl AST 41 H (15-37) U/L ALT 47 (12-78) U/L Alkaline Phosphatase 49 (45-117) U/L Troponin I < 0.015 (0-0.045) ng/ml Total Protein 7.7 (6.4-8.2) gm/dl Albumin 2.7 L (3.4-5.0) gm/dl Globulin 5.0 H (2.5-4.0) gm/dl Albumin/Globulin Ratio 0.5 L (0.9-2) Procalcitonin (0-0.5) ng/ml Urine Color Urine Appearance (Clear) Urine pH (4.5-7.5) Ur Specific Pryor (1.000-1.030) Urine Protein (Negative) Urine Glucose (UA) (Negative) Urine Ketones (Negative) Urine Blood (Negative) Urine Nitrite (Negative) Urine Bilirubin (Negative) Urine Urobilinogen (Negative) Ur Leukocyte Esterase (Negative) Urine WBC (Auto) (0-5) /hpf Urine RBC (Auto) (0-4) /hpf U Hyaline Cast (Auto) (0-5) /lpf U Epithel Cells (Auto) (0-5) /lpf Urine Bacteria (Auto) (Negative) Urine Yeast Influenza Type A (PCR) (Neg) Influenza Type B (PCR) (Neg) 11/15/19 11/15/19 11/15/19 Range/Units 12:25 12:25 12:27 WBC (4.8-10.8) K/uL RBC (4.7-6.1) M/uL Hgb (14.0-18.0) g/dL Hct (42-52) % MCV (80-100) fL MCH (25-34) pg MCHC (32-36) g/dL RDW Std Deviation (36.4-46.3) fL RDW Coeff of Aquiles (11.5-14.5) % Plt Count (130-400) K/uL MPV (7.4-10.4) fL Immature Gran % (Auto) % Neut % (Auto) % Lymph % (Auto) % Gregory % (Auto) % Eos % (Auto) % Baso % (Auto) % Immature Gran # (Auto) (0.00-0.02) K/uL Neut # (Auto) (1.4-6.5) K/uL Lymph # (Auto) (1.2-3.4) K/uL Gregory # (Auto) (0.11-0.59) K/uL Eos # (Auto) (0-0.5) K/uL Baso # (Auto) (0-0.2) K/uL PT (9.0-12.0) Seconds INR (0.9-1.1) APTT (21.0-31.0) Seconds PTT Ratio Sodium (136-145) mmol/L Potassium (3.5-5.1) mmol/L Chloride (98-107) mmol/L Carbon Dioxide (21-32) mmol/L Anion Gap (3-11) BUN (7-18) mg/dl Creatinine (0.6-1.4) mg/dl Est Cr Clr Drug Dosing ml/min Est GFR ( Amer) Est GFR (Non-Af Amer) BUN/Creatinine Ratio (10-20) Glucose (70-99) mg/dl Lactate 1.1 (0.4-2.0) mmol/L Calcium (8.5-10.1) mg/dl Magnesium (1.8-2.4) mg/dl Total Bilirubin (0.2-1) mg/dl AST (15-37) U/L ALT (12-78) U/L Alkaline Phosphatase (45-117) U/L Troponin I (0-0.045) ng/ml Total Protein (6.4-8.2) gm/dl Albumin (3.4-5.0) gm/dl Globulin (2.5-4.0) gm/dl Albumin/Globulin Ratio (0.9-2) Procalcitonin 0.96 H (0-0.5) ng/ml Urine Color Urine Appearance (Clear) Urine pH (4.5-7.5) Ur Specific Pryor (1.000-1.030) Urine Protein (Negative) Urine Glucose (UA) (Negative) Urine Ketones (Negative) Urine Blood (Negative) Urine Nitrite (Negative) Urine Bilirubin (Negative) Urine Urobilinogen (Negative) Ur Leukocyte Esterase (Negative) Urine WBC (Auto) (0-5) /hpf Urine RBC (Auto) (0-4) /hpf U Hyaline Cast (Auto) (0-5) /lpf U Epithel Cells (Auto) (0-5) /lpf Urine Bacteria (Auto) (Negative) Urine Yeast Influenza Type A (PCR) Neg for Influ A (Neg) Influenza Type B (PCR) Neg for Influ B (Neg) 11/15/19 Range/Units 12:49 WBC (4.8-10.8) K/uL RBC (4.7-6.1) M/uL Hgb (14.0-18.0) g/dL Hct (42-52) % MCV (80-100) fL MCH (25-34) pg MCHC (32-36) g/dL RDW Std Deviation (36.4-46.3) fL RDW Coeff of Aquiles (11.5-14.5) % Plt Count (130-400) K/uL MPV (7.4-10.4) fL Immature Gran % (Auto) % Neut % (Auto) % Lymph % (Auto) % Gregory % (Auto) % Eos % (Auto) % Baso % (Auto) % Immature Gran # (Auto) (0.00-0.02) K/uL Neut # (Auto) (1.4-6.5) K/uL Lymph # (Auto) (1.2-3.4) K/uL Gregory # (Auto) (0.11-0.59) K/uL Eos # (Auto) (0-0.5) K/uL Baso # (Auto) (0-0.2) K/uL PT (9.0-12.0) Seconds INR (0.9-1.1) APTT (21.0-31.0) Seconds PTT Ratio Sodium (136-145) mmol/L Potassium (3.5-5.1) mmol/L Chloride (98-107) mmol/L Carbon Dioxide (21-32) mmol/L Anion Gap (3-11) BUN (7-18) mg/dl Creatinine (0.6-1.4) mg/dl Est Cr Clr Drug Dosing ml/min Est GFR ( Amer) Est GFR (Non-Af Amer) BUN/Creatinine Ratio (10-20) Glucose (70-99) mg/dl Lactate (0.4-2.0) mmol/L Calcium (8.5-10.1) mg/dl Magnesium (1.8-2.4) mg/dl Total Bilirubin (0.2-1) mg/dl AST (15-37) U/L ALT (12-78) U/L Alkaline Phosphatase (45-117) U/L Troponin I (0-0.045) ng/ml Total Protein (6.4-8.2) gm/dl Albumin (3.4-5.0) gm/dl Globulin (2.5-4.0) gm/dl Albumin/Globulin Ratio (0.9-2) Procalcitonin (0-0.5) ng/ml Urine Color Dark Yellow Urine Appearance Cloudy A (Clear) Urine pH 5.5 (4.5-7.5) Ur Specific Pryor 1.017 (1.000-1.030) Urine Protein 1+ H (Negative) Urine Glucose (UA) Negative (Negative) Urine Ketones Negative (Negative) Urine Blood 3+ H (Negative) Urine Nitrite Negative (Negative) Urine Bilirubin Negative (Negative) Urine Urobilinogen Negative (Negative) Ur Leukocyte Esterase Trace H (Negative) Urine WBC (Auto) 10-30 H (0-5) /hpf Urine RBC (Auto) >30 H (0-4) /hpf U Hyaline Cast (Auto) 0 (0-5) /lpf U Epithel Cells (Auto) 0-5 (0-5) /lpf Urine Bacteria (Auto) 1+ H (Negative) Urine Yeast Not Reportable Influenza Type A (PCR) (Neg) Influenza Type B (PCR) (Neg) Administered Medications Ioversol (Optiray 320 100ml) 94 ml IV ONCE PRN PRN Reason: Interaction Checking Stop: 11/19/19 13:55 Last Admin: 11/15/19 13:56 Dose: 94 ml Documented by: [id number] Discontinued Medications Cefepime HCl (Maxipime) 2,000 mg in 20 mls @ 5 mls/min IV NOW STA; Protocol Stop: 11/15/19 12:10 Last Admin: 11/15/19 13:02 Dose: 5 mls/min Documented by: [id number] Sodium Chloride (Nss 1000ml) 1,000 mls @ 999 mls/hr IV .Q1H1M ONE Stop: 11/15/19 15:43 Last Admin: 11/15/19 15:02 Dose: 999 mls/hr Documented by: [id number] Imaging Data Radiologist's Impression: XR chest 1V portable HISTORY: 69 years-old Male SEPSIS acute sepsis COMPARISON: Chest radiograph 09/05/2017 TECHNIQUE: Portable AP view of the chest FINDINGS: Cardiac silhouette is mildly enlarged. Shunt catheter projects over the right neck, chest and upper abdomen with the imaged portions appearing intact. Subdiaphragmatic lucencies are noted, right greater than left. Linear bibasilar opacities. Mild blunting of the left costophrenic angle. No pneumothorax, large pleural effusion or overt pulmonary edema. Loose body of the left axillary recess. Degenerative changes of the shoulders and spine. IMPRESSION: 1. Linear bibasilar opacities are suggestive of probable atelectasis. Pneumonitis considered less likely. 2. Right greater than left subdiaphragmatic lucencies are suggestive of superimposed air within the bowel and stomach. Pneumoperitoneum considered less likely. This finding could be correlated with an upright view of the abdomen. CT abd pelvis IV con only CLINICAL HISTORY: Lower abdominal pain and fever COMPARISON STUDY: August 2017 TECHNIQUE: The patient was scanned in a dynamic helical fashion during intravenous administration of 94 cc of Optiray 320. A dose lowering technique was utilized adhering to the principles of ALARA. The examination is somewhat limited from a technical standpoint secondary to motion artifact as well as artifact secondary to the patient's arms which were over his abdomen the time of scanning. CT DOSE: 660.04 mGy.cm FINDINGS: Lower chest: There is a trace left pleural effusion. There are left lower lobe airspace opacities, atelectatic versus pneumonia. There is underlying emphysema. There are right basilar atelectatic changes. There is respiratory motion artifact. Liver: There is a stable 22 mm hyperdense right hepatic lobe lesion. As previous stated, this likely represents a hepatic hemangioma. Gallbladder: Unremarkable. Spleen: Normal in size and attenuation. Pancreas: Unremarkable. Adrenal glands: Unremarkable. Kidneys: There are bilateral renal cysts. There is bilateral uroepithelial thickening. Clinical correlation regards to a urinary tract infection is recommended. There is mild dilatation of the right renal pelvis. Bowel: There are no transition zones to indicate bowel obstruction. There are no findings to indicate acute diverticulitis. The appendix is not visualized with certainty. There are no secondary findings to indicate acute appendicitis. Peritoneum: There is trace peritoneal fluid. There is no free intraperitoneal air. A peritoneal catheter is again visualized. Vasculature: The abdominal aorta is normal in course and caliber. Adenopathy: None. Pelvic viscera: The prostate is enlarged. There is a Ly catheter present. Skeletal structures: No destructive osseous lesions are seen. IMPRESSION: 1. No evidence of bowel obstruction. No evidence of free air 2. Left lower lobe pulmonary airspace opacities, pneumonia versus atelectasis. 3. Bilateral uroepithelial thickening. Clinical correlation with respect to an upper urinary tract infection is recommended 4. No evidence of acute appendicitis. No evidence of acute diverticulitis. 5. Prostatomegaly Blood Pressure Blood Pressure Findings: Normal blood pressure Discharge Plan Visit Data Chief Complaint: Dehydration Stated Complaint: DEHYDRATION, VOMITING, HARD BELLY ED Provider: Chin Toussaint Discharge Problem: Pneumonia, Fever, Acute urinary retention, Acute kidney injury Patient Disposition: Being Evaluated by Hospitalist Condition: Good Forms Stand Alone Forms: [facility] Prescriptions Prescriptions: No Action epinephrine 1 mg/mL solution 0.3 mg SQ UD PRN (Reason: Anaphylaxis) RF: 0 Xarelto 20 mg tablet 20 mg PO DAILY Qty: 90 RF: 0 simvastatin 20 mg tablet 20 mg PO DAILY Qty: 90 RF: 0 amlodipine 5 mg tablet 5 mg PO QPM RF: 0 baclofen 10 mg tablet 5 mg PO BID RF: 0 doxazosin 2 mg tablet 2 mg PO QPM RF: 0 acetaminophen [Tylenol Extra Strength] 500 mg Tablet 500 mg PO Q6H PRN (Reason: Pain) RF: 0 Referrals Referrals: Rosalva Gallegos MD [Primary Care Provider] - Discharge Problem: Pneumonia Qualifiers: Pneumonia type: due to unspecified organism Laterality: left Lung location: lower lobe of lung Qualified Code(s): J18.9 - Pneumonia, unspecified organism Fever Qualifiers: Fever type: unspecified Qualified Code(s): R50.9 - Fever, unspecified
--- NOTE | 2019-11-15 12:42 | XRay Report ---
XR chest 1V portable HISTORY: 69 years-old Male SEPSIS acute sepsis COMPARISON: Chest radiograph 09/05/2017 TECHNIQUE: Portable AP view of the chest FINDINGS: Cardiac silhouette is mildly enlarged. Shunt catheter projects over the right neck, chest and upper a bdomen with the imaged portions appearing intact. Subdiaphragmatic lucencies are noted, right greater than left. Linear bibasilar opacities. Mild blunting of the left costophrenic angle. No pneumothorax , large pleural effusion or overt pulmonary edema. Loose body of the left axillary recess. Degenerati ve changes of the shoulders and spine. IMPRESSION: 1. Linear bibasilar opacities are suggestive of probable atelectasis. Pneumonitis considered less lik ashli. 2. Right greater than left subdiaphragmatic lucencies are suggestive of superimposed air within the b owel and stomach. Pneumoperitoneum considered less likely. This finding could be correlated with an u pright view of the abdomen. ACT 112: Negative or not required by law. The above report was generated using voice recognition software. It may contain grammatical, syntax o r spelling errors. Electronically signed by: Ramon Castellanos M.D. 11/15/2019 12:40 PM
[2019-11-15 12:43] LABS: Basophils # (auto) 0.02 K/uL (0-0.2); Basophils % (auto) 0.2 %; Eosinophils # (auto) 0.28 K/uL (0-0.5); Eosinophils % (auto) 2.8 %; Hematocrit (blood only) 47.8 % (42-52); Hemoglobin 16.6 g/dL (14.0-18.0); Immature Granulocytes # (auto) 0.04 K/uL (0.00-0.02); Immature Granulocytes % (auto) 0.4 %; Lymphocytes # (auto) 0.87 K/uL (1.2-3.4); Lymphocytes % (auto) 8.7 %; Mean Corpuscular Hemoglobin 31.3 pg (25-34); Mean Corpuscular Hgb Conc 34.7 g/dL (32-36); Mean Corpuscular Volume 90.2 fL (80-100); Mean Platelet Volume 10.9 fL (7.4-10.4); Neutrophils # (auto) 7.87 K/uL (1.4-6.5); Neutrophils % (auto) 78.9 %; Platelet Count 176 K/uL (130-400); RDW Coefficient of Variation 13.7 % (11.5-14.5); White Blood Count 9.98 K/uL (4.8-10.8)
[2019-11-15 12:56] LABS: Alanine Aminotransferase 47 U/L (12-78); Albumin Level 2.7 gm/dl (3.4-5.0); Aspartate Aminotransferase 41 U/L (15-37); BUN Creatinine Ratio 29.6 (10-20); Blood Urea Nitrogen 50 mg/dl (7-18); Calcium 8.7 mg/dl (8.5-10.1); Carbon Dioxide 26 mmol/L (21-32); Chloride 99 mmol/L (98-107); Creatinine Clr Calc Pharmacy 39.1 ml/min; Est GFR (African American) 46.3; Glucose 134 mg/dl (70-99); Magnesium 2.3 mg/dl (1.8-2.4); Potassium 3.8 mmol/L (3.5-5.1); Sodium 133 mmol/L (136-145)
[2019-11-15 13:01] LABS: Albumin Globulin Ratio 0.5 (0.9-2); Alkaline Phosphatase 49 U/L (45-117); Bilirubin,Total 0.9 mg/dl (0.2-1); Total Protein 7.7 gm/dl (6.4-8.2); Troponin I < 0.015 ng/ml (0-0.045)
[2019-11-15 13:04] LABS: INR 1.7 (0.9-1.1); Partial Thromboplastin Ratio 1.9; Prothrombin Time 17.1 Seconds (9.0-12.0)
[2019-11-15 13:05] LABS: Appearance Urine Cloudy (Clear); Bilirubin Urine Negative (Negative); Blood Urine 3+ (Negative); Cast Urine Automated 0 /lpf (0-5); Color Urine Dark Yellow; Epithelial Cell Urine Auto 0-5 /lpf (0-5); Glucose Urine UA Negative (Negative); Ketones Urine Negative (Negative); Leukocyte Esterase Urine Trace (Negative); Nitrite Urine Negative (Negative); Protein Urine 1+ (Negative); Specific Gravity Urine 1.017 (1.000-1.030); Urobilinogen Urine Negative (Negative); pH Urine 5.5 (4.5-7.5)
[2019-11-15 13:11] LABS: Partial Thromboplastin Time 51.7 Seconds (21.0-31.0)
[2019-11-15 13:22] LABS: Influenza A virus by PCR Neg for Influ A (Neg); Influenza B virus by PCR Neg for Influ B (Neg)
[2019-11-15 13:27] LABS: RBC Urine Automated >30 /hpf (0-4)
[2019-11-15 13:29] LABS: Bacteria Urine Automated 1+ (Negative)
[2019-11-15] MEDS ORDERED: IOVERSOL 100ml IV PRN (13:56)
--- NOTE | 2019-11-15 14:18 | CT Scan Report ---
CT abd pelvis IV con only CLINICAL HISTORY: Lower abdominal pain and fever COMPARISON STUDY: August 2017 TECHNIQUE: The patient was scanned in a dynamic helical fashion during intravenous administration of 94 cc of Optiray 320. A dose lowering technique was utilized adhering to the principles of ALARA. The examination is somewhat limited from a technical standpoint secondary to motion artifact as well as artifact secondary to the patient's arms which were over his abdomen the time of scanning. CT DOSE: 660.04 mGy.cm FINDINGS: Lower chest: There is a trace left pleural effusion. There are left lower lobe airspace opacities, at electatic versus pneumonia. There is underlying emphysema. There are right basilar atelectatic change s. There is respiratory motion artifact. Liver: There is a stable 22 mm hyperdense right hepatic lobe lesion. As previous stated, this likely represents a hepatic hemangioma. Gallbladder: Unremarkable. Spleen: Normal in size and attenuation. Pancreas: Unremarkable. Adrenal glands: Unremarkable. Kidneys: There are bilateral renal cysts. There is bilateral uroepithelial thickening. Clinical corre lation regards to a urinary tract infection is recommended. There is mild dilatation of the right ronnie al pelvis. Bowel: There are no transition zones to indicate bowel obstruction. There are no findings to indicate acute diverticulitis. The appendix is not visualized with certainty. There are no secondary findings to indicate acute appendicitis. Peritoneum: There is trace peritoneal fluid. There is no free intraperitoneal air. A peritoneal dick ter is again visualized. Vasculature: The abdominal aorta is normal in course and caliber. Adenopathy: None. Pelvic viscera: The prostate is enlarged. There is a Ly catheter present. Skeletal structures: No destructive osseous lesions are seen. IMPRESSION: 1. No evidence of bowel obstruction. No evidence of free air 2. Left lower lobe pulmonary airspace opacities, pneumonia versus atelectasis. 3. Bilateral uroepithelial thickening. Clinical correlation with respect to an upper urinary tract in fection is recommended 4. No evidence of acute appendicitis. No evidence of acute diverticulitis. 5. Prostatomegaly ACT 112: Negative or not required by law. Electronically signed by: Morris Damian M.D. 11/15/2019 2:16 PM
[2019-11-15] MEDS ORDERED: SODIUM CHLORIDE 0.9% 1000ML 1,000 ML IV ONE (14:43)
--- NOTE | 2019-11-15 14:58 | Electrocardiogram Report ---
Test Reason : Blood Pressure : / mmHG Vent. Rate : 084 BPM Atrial Rate : 084 BPM P-R Int : 138 ms QRS Dur : 100 ms QT Int : 352 ms P-R-T Axes : 051 061 036 degrees QTc Int : 415 ms Normal sinus rhythm Poor R wave progression, consider anterior PA vs. lead placement vs. LVH Abnormal ECG When compared with ECG of 05-SEP-2017 21:55, No significant change Confirmed by Gonsalo Velasco ([id number]) on 11/15/2019 2:58:24 PM Referred By: Confirmed By:Gonsalo Velasco
[2019-11-15] MEDS ORDERED: DOXYCYCLINE HYCLATE 100 MG in DEXTROSE 5% 100 ML IV SCH (16:13)
--- NOTE | 2019-11-15 16:19 | History & Physical Report ---
Date of Service November 15, 2019 Assessment & Plan (1) UTI (urinary tract infection): Fever on 11/13, CT findings of abd/pelvis, u/a findings, urinary retention, etc all suggest UTI. Received cefepime in ER. Will change to rocephin 2gm daily (this will cover LLL pneumonia as well). I did not perform ZHEN but very easily he could have prostatitis as well. Would check ZHEN while here to r/o such or check PSA. If he has prostatitis would need extended course of antibiotics. Follow blood and urine cultures. (2) BPH (benign prostatic hyperplasia): Typically takes doxazosin at home. Consider increasing this medication or changing to flomax in light of severity of urinary retention. Or, could add finasteride to the doxazosin. Consider ZHEN or checking PSA while here (see "UTI" above). Would leave ennis in for most of this admission. Consider trial of void prior to d/c OR send home with ennis - favor latter given severity of the urinary retention. Consider urology consultation while hospitalized. (3) Acute kidney injury: Obstruction likely playing the largest role given the retention of 1000cc+ of urine. Obstruction 2nd to BPH. Cont alpha roger. Cannot rule out mild dehydration/prerenal causes. Hydrate, repeat BMP am. Ennis. (4) Acute urinary retention: 2nd to suspected UTI +/- prostatitis along with BPH. Ennis. Treat UTI. Alpha roger, etc. (5) Gross hematuria: UTI can cause such. Prostatitis can cause such. Ennis trauma during insertion can contribute. And he is also on xarelto which can worsen all of the above. Cannot rule out bladder tumor, etc. Nothing obvious on CT. Given severity of hematuria will hold xarelto. He also has coagulopathy with elevated INR and PTT - this will worsen the situation. If hematuria does not improve with supportive care measures then obtain urology consultation. (6) Coagulopathy: Novel agents (e.g. xarelto) can often cause mild elevation in the INR but today the INR is 1.7 and PTT is also elevated. Could he have an acquired inhibitor? vitamin K deficiency? other factor deficiency? Hold xarelto. Repeat INR and PTT in am. If still coagulopathic in am consider "mixing study." Consider empiric vitamin K. platelets noted to be normal. (7) Pneumonia: LLL. Pt's states he has chronic cough and that his breathing today is at baseline. Chronic aspiration from dysphagia from previous stroke? Rocephin for UTI will cover LLL pneumonia. Add doxy for atypical coverage. Add flagyl for anaerobe coverage if this is aspiration. does not report issues w/ his swallowing but I am concerned he does have dysphagia. Will ask speech to perform swallow eval. (8) Benign hypertension: BP is low-normal. Hold norvasc. Follow BPs. Hydrate w/ NS. (9) Hyperlipidemia: Cont statin (10) DVT (deep venous thrombosis): Extensive LLE DVT in 09/2018. Typically takes xarelto daily - last dose was this AM. Have to weigh risks vs benefits - in light of significant gross hematuria - of holding xarelto temporarily. Will hold tomorrow AM's dose of xarelto - follow the hematuria. Resume xarelto carlitos when safe to do so from standpoint. 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 Now with [employer] shunt. significant left-sided hemiparesis from such. PT, OT while here. Cont baclofen. (12) Dysphagia: see discussion above speech eval place on "easy to chew" diet in meantime aspiration precautions IVF - NS at 80cc/hr labs in am DVT proph - holding xarelto in am until urine clears; SCDs in meantime Although patient had fever yesterday I believe the primary infectious issue at this time is UTI +/- prostatitis. May have LLL pneumonia as well. No COVID risk factors as delineated in the HPI. Defer on COVID testing at this time. History of Present Illness Chief Complaint: inability to void, abdominal distension/bloating Primary Care Provider: Rosalva Gallegos MD 69yo male with h/o stroke with resulting left-sided hemiparesis in 2017, h/o DVT on xarelto, BPH, and HTN who presents from home with his due to decreased UOP/inability to void and abdominal bloating. Patient's provides all of the history during the encounter. Apparently about 24-36 hours ago the patient became incontinent of urine and this is atypical for him. Some of the urine was "dark" per his . He would only pass small amounts of urine. In addition, he had decreased appetite over the last 2-3 days along with fever to 101 degrees yesterday. No fever overnight or this am however. The patient has a chronic cough due to poor ability to expectorate his sputum. His cough may be slightly worse than baseline. His breathing, according to his , is always "noisy" and raspy/loud-sounding. He has had no loss of sense of taste or smell. No myalgias. No chills. No diarrhea. No vomiting. Patient has not left his home in many weeks. He used to have in-home caregivers but his canceled them in early September when the COVID pandemic started. They have had no visitors to the home. No sick contacts. just goes to grocery store and back wearing a mask. In the ER the attending physician felt the patient had urinary retention. A ennis was placed, and 1000+cc of javed-colored urine was obtained within a short period of time. The patient reported that his abdominal symptoms were much better following such. Pt's confirmed that he DID have his xarelto this am. Allergies Allergy/AdvReac Type Severity Reaction Status Date / Time bee venom protein (honey bee) Allergy Severe ANAPHYLAXIS Verified 11/15/19 13:38 No Known Drug Allergies Allergy Unknown . Verified 11/15/19 13:38 Home Medications Home Medications Medication Instructions Recorded Confirmed Type acetaminophen [Tylenol Extra 500 mg PO Q6H PRN 09/30/18 11/15/19 History Strength] epinephrine 1 mg/mL injection 0.3 mg SQ UD PRN 01/15/19 11/15/19 History solution rivaroxaban 20 mg tablet 20 mg PO DAILY #90 tab 11/06/19 11/15/19 Rx simvastatin 20 mg tablet 20 mg PO DAILY #90 tab 11/06/19 11/15/19 Rx amlodipine 5 mg PO QPM 11/15/19 11/15/19 History baclofen 5 mg PO BID 11/15/19 11/15/19 History doxazosin 2 mg PO QPM 11/15/19 11/15/19 History Past Med/Surg History Medical History (Updated 11/15/19 @ 19:17 by Juan Carlos Almaguer) Benign hypertension (Acute) DVT (deep venous thrombosis) (Acute) Hemiparesis affecting left side as late effect of cerebrovascular accident Hemorrhagic stroke (Inactive) Hyperlipidemia (Acute) On anticoagulant therapy xarelto daily Surgical History History of appendectomy History of carpal tunnel release of both wrists History of colonoscopy History of esophagogastroduodenoscopy (EGD) History of eye surgery retina sx on right eye History of fusion of cervical spine "stiff neck, cant tilt head all the way back" History of phacoemulsification of cataract of right eye with intraocular lens implantation PEG (percutaneous endoscopic gastrostomy) status 07/2017 S/P [employer] shunt Family History Uncle Colorectal cancer Father Myocardial infarction Mother Stroke Other No family history of adverse response to anesthesia Denies family history of Prostate cancer Breast cancer Social History (Updated 11/15/19 @ 19:09 by Juan Carlos Almaguer) Preferred Language: Bulgarian Communication Ability: Impaired Communication Ability Comment: too weak on left side to write Visual Supervisor Required: No Beliefs That Will Affect Care: None Current Living Situation: Spouse current occupational status: retired current occupation: worked at [employer] Other Information That Helps Us Care for You: No other: 1 biological child; 1 step-child Feels Safe at Home: Yes Safety Concerns: Feels Safe At This Time Smoking Status: Former smoker Tobacco Type: cigarettes ; packs per day: 1 ; Do You Dip or Chew Tobacco: No ; Smoking End Date: 2014 ; Second Hand Exposure: No ; Tobacco Cessation Education Requested by Patient: No Hx Alcohol Use: No (but drank in the past ) Hx Substance Use: No Review of Systems Constitutional: + fever (once - on 11/14/19) and + anorexia; no chills and no weight loss Eyes: no worsening vision Ear, Nose, Mouth, Throat: no nasal congestion, no nasal discharge, no sore throat and no dysphagia Respiratory: + cough; no dyspnea and no sputum production Cardiovascular: no chest pain Gastrointestinal: + bloating, + nausea and + constipation (no BM in 4-5 days ); no vomiting Genitourinary: + difficulty urinating and + urinary incontinence Musculoskeletal: no joint pain Integumentary: no rash Neurologic: + localized weakness Psychiatric: no anxiety Endocrine: no polyuria Physical Exam Constitutional: average body habitus and + frail appearing; no acute distress and no altered mental status coughing at times; dysarthric speech; audible wheeze/noisy breathing Eyes: PERRL ENMT: Mouth: + oral mucosal abnormality (aphthous ulcer right buccal mucosa); oral mucous membranes not dry Neck: trachea midline, no thyromegaly Respiratory: + cough; no respiratory distress and not tachypneic Auscultation: + crackles (focal - left base) and + wheezes (focal - left base) Cardiovascular: Rate/Rhythm: regular rate and regular rhythm Heart Sounds: normal S1 and normal S2; no murmur Vessels: posterior tibial pulses present and dorsalis pedis pulses present; no JVD Extremities: no edema Gastrointestinal (Abdomen): normal bowel sounds, soft, nontender, no hepatosplenomegaly scattered scars on abd wall Musculoskeletal: no joint effusions Skin: no rashes, warm and dry Neurologic: strength RUE/RLE 5/5; strength left arm and left leg 2/5; dysarthric speech Psychiatric: Orientation: alert Genitourinary: ennis in place with javed-colored urine; penis normal Lymphatic: no cervical lymphadenopathy Results & Data Results & Data ([facility]) Vital Signs (Past 12 Hours) Vital Signs Temp Pulse Resp BP Pulse Ox 11/15/19 15:31 81 20 93 11/15/19 15:30 80 22 116/81 93 11/15/19 15:11 81 22 117/78 93 11/15/19 15:10 80 20 117/78 92 11/15/19 15:01 81 24 93 11/15/19 15:00 82 19 117/78 93 11/15/19 14:31 84 23 91 11/15/19 14:30 84 23 128/81 91 11/15/19 14:13 84 22 92 11/15/19 14:12 87 24 125/81 92 11/15/19 14:04 91 H 17 91 11/15/19 13:31 88 20 91 11/15/19 13:30 105 H 24 120/81 92 11/15/19 13:01 90 22 93 11/15/19 13:00 92 H 24 134/81 93 11/15/19 12:46 85 25 H 138/79 93 11/15/19 12:30 89 26 H 93 11/15/19 12:15 94 H 22 92 11/15/19 12:01 88 24 92 11/15/19 12:00 90 22 130/83 92 11/15/19 11:57 90 20 92 11/15/19 11:53 89 22 143/87 H 92 11/15/19 11:41 37 C 89 22 122/81 91 Laboratory Results Laboratory Results - last 24 hr 11/15/19 11/15/19 11/15/19 12:25 12:25 12:25 WBC 9.98 RBC 5.30 Hgb 16.6 Hct 47.8 MCV 90.2 MCH 31.3 MCHC 34.7 RDW Std Deviation 45.0 RDW Coeff of Aquiles 13.7 Plt Count 176 MPV 10.9 H Immature Gran % (Auto) 0.4 Neut % (Auto) 78.9 Lymph % (Auto) 8.7 [place] % (Auto) 9.0 Eos % (Auto) 2.8 Baso % (Auto) 0.2 Immature Gran # (Auto) 0.04 H Neut # (Auto) 7.87 H Lymph # (Auto) 0.87 L [place] # (Auto) 0.90 H Eos # (Auto) 0.28 Baso # (Auto) 0.02 PT 17.1 H INR 1.7 H APTT 51.7 H* PTT Ratio 1.9 Sodium 133 L Potassium 3.8 Chloride 99 Carbon Dioxide 26 Anion Gap 8.0 BUN 50 H Creatinine 1.70 H Est Cr Clr Drug Dosing 39.1 Est GFR ( Amer) 46.3 Est GFR (Non-Af Amer) 40.0 BUN/Creatinine Ratio 29.6 H Glucose 134 H Lactate Calcium 8.7 Magnesium 2.3 Total Bilirubin 0.9 AST 41 H ALT 47 Alkaline Phosphatase 49 Troponin I < 0.015 Total Protein 7.7 Albumin 2.7 L Globulin 5.0 H Albumin/Globulin Ratio 0.5 L Procalcitonin Urine Color Urine Appearance Urine pH Ur Specific [place] Urine Protein Urine Glucose (UA) Urine Ketones Urine Blood Urine Nitrite Urine Bilirubin Urine Urobilinogen Ur Leukocyte Esterase Urine WBC (Auto) Urine RBC (Auto) U Hyaline Cast (Auto) U Epithel Cells (Auto) Urine Bacteria (Auto) Urine Yeast Influenza Type A (PCR) Influenza Type B (PCR) 11/15/19 11/15/19 11/15/19 12:25 12:25 12:27 WBC RBC Hgb Hct MCV MCH MCHC RDW Std Deviation RDW Coeff of [place] Plt Count MPV Immature Gran % (Auto) Neut % (Auto) Lymph % (Auto) [place] % (Auto) Eos % (Auto) Baso % (Auto) Immature Gran # (Auto) Neut # (Auto) Lymph # (Auto) [place] # (Auto) Eos # (Auto) Baso # (Auto) PT INR APTT PTT Ratio Sodium Potassium Chloride Carbon Dioxide Anion Gap BUN Creatinine Est Cr Clr Drug Dosing Est GFR ( Amer) Est GFR (Non-Af Amer) BUN/Creatinine Ratio Glucose Lactate 1.1 Calcium Magnesium Total Bilirubin AST ALT Alkaline Phosphatase Troponin I Total Protein Albumin Globulin Albumin/Globulin Ratio Procalcitonin 0.96 H Urine Color Urine Appearance Urine pH Ur Specific [place] Urine Protein Urine Glucose (UA) Urine Ketones Urine Blood Urine Nitrite Urine Bilirubin Urine Urobilinogen Ur Leukocyte Esterase Urine WBC (Auto) Urine RBC (Auto) U Hyaline Cast (Auto) U Epithel Cells (Auto) Urine Bacteria (Auto) Urine Yeast Influenza Type A (PCR) Neg for Influ A Influenza Type B (PCR) Neg for Influ B 11/15/19 12:49 WBC RBC Hgb Hct MCV MCH MCHC RDW Std Deviation RDW Coeff of [place] Plt Count MPV Immature Gran % (Auto) Neut % (Auto) Lymph % (Auto) [place] % (Auto) Eos % (Auto) Baso % (Auto) Immature Gran # (Auto) Neut # (Auto) Lymph # (Auto) [place] # (Auto) Eos # (Auto) Baso # (Auto) PT INR APTT PTT Ratio Sodium Potassium Chloride Carbon Dioxide Anion Gap BUN Creatinine Est Cr Clr Drug Dosing Est GFR ( Amer) Est GFR (Non-Af Amer) BUN/Creatinine Ratio Glucose Lactate Calcium Magnesium Total Bilirubin AST ALT Alkaline Phosphatase Troponin I Total Protein Albumin Globulin Albumin/Globulin Ratio Procalcitonin Urine Color Dark Yellow Urine Appearance Cloudy A Urine pH 5.5 Ur Specific [place] 1.017 Urine Protein 1+ H Urine Glucose (UA) Negative Urine Ketones Negative Urine Blood 3+ H Urine Nitrite Negative Urine Bilirubin Negative Urine Urobilinogen Negative Ur Leukocyte Esterase Trace H Urine WBC (Auto) 10-30 H Urine RBC (Auto) >30 H U Hyaline Cast (Auto) 0 U Epithel Cells (Auto) 0-5 Urine Bacteria (Auto) 1+ H Urine Yeast Not Reportable Influenza Type A (PCR) Influenza Type B (PCR) Diagnostic Findings CT abd/pelvis - IMPRESSION: 1. No evidence of bowel obstruction. No evidence of free air 2. Left lower lobe pulmonary airspace opacities, pneumonia versus atelectasis. 3. Bilateral uroepithelial thickening. Clinical correlation with respect to an upper urinary tract infection is recommended 4. No evidence of acute appendicitis. No evidence of acute diverticulitis. 5. Prostatomegaly cxr - IMPRESSION: 1. Linear bibasilar opacities are suggestive of probable atelectasis. Pneumonitis considered less likely. 2. Right greater than left subdiaphragmatic lucencies are suggestive of superimposed air within the bowel and stomach. Pneumoperitoneum considered less likely. This finding could be correlated with an upright view of the abdomen. EKG - NSR, mild interventricular conduction delay, no ST changes Code Status & VTE Plan Code Status conditional code/partial -- intubation/mech ventilation ok, but no CPR/compressions/shocks VTE Prophylaxis Plan VTE Prophylaxis will be ordered: No Reason for no VTE drug order: Contraindicated PG Care Time/CCT Total # of Minutes Spent Total Time Spent with Patient: Total time spent is greater than 50% in coordination of care (as documented) at patient's floor/unit and/or counseling patient: Coding Level of Care Code 46242 Initial Inpt Care Lvl 3 Diagnoses UTI (urinary tract infection) N30.01 Hematuria presence: with hematuria Urinary tract infection type: acute cystitis BPH (benign prostatic hyperplasia) N40.1; R33.8 Lower urinary tract symptom detail: urinary retention Lower urinary tract symptom presence: symptoms present Acute kidney injury N17.9 Acute urinary retention R33.8 Gross hematuria R31.0 Coagulopathy D68.9 Pneumonia J18.9 Laterality: left Lung location: lower lobe of lung Pneumonia type: due to unspecified organism Benign hypertension I10 Hyperlipidemia E78.2 Hyperlipidemia type: mixed hyperlipidemia DVT (deep venous thrombosis) I82.402 Affected thrombotic vein of extremity: unspecified vein of extremity Chronicity: unspecified DVT location: lower extremity Laterality: left Hemiparesis affecting left side as late effect of cerebrovascular accident I69.354 Dysphagia R13.10 Dysphagia type: unspecified (1) UTI (urinary tract infection) Hematuria presence: with hematuria Urinary tract infection type: acute cystitis Qualified Code(s): N30.01 - Acute cystitis with hematuria (2) BPH (benign prostatic hyperplasia) Lower urinary tract symptom detail: urinary retention Lower urinary tract symptom presence: symptoms present Qualified Code(s): N40.1 - Benign prostatic hyperplasia with lower urinary tract symptoms; R33.8 - Other retention of urine (3) DVT (deep venous thrombosis) Affected thrombotic vein of extremity: unspecified vein of extremity Chronicity: unspecified DVT location: lower extremity Laterality: left Qualified Code(s): I82.402 - Acute embolism and thrombosis of unspecified deep veins of left lower extremity (4) Dysphagia Dysphagia type: unspecified Qualified Code(s): R13.10 - Dysphagia, unspecified (5) Hyperlipidemia Hyperlipidemia type: mixed hyperlipidemia Qualified Code(s): E78.2 - Mixed hyperlipidemia (6) Pneumonia Laterality: left Lung location: lower lobe of lung Pneumonia type: due to unspecified organism Qualified Code(s): J18.9 - Pneumonia, unspecified organism
[2019-11-15] MEDS ORDERED: ACETAMINOPHEN 500 MG TAB PO PRN (18:02)
[2019-11-15] MEDS ORDERED: EpINEphrine HCL INJ 1 MG/ML 1ML SYRINGE TOP PRN (18:02)
[2019-11-15] MEDS ORDERED: ONDANSETRON INJ 2 MG/ML 2 ML VIAL IV PRN (18:02)
[2019-11-15] MEDS: guaiFENesin SUGAR FREE 100 MG/5 ML UDC PO SCH (18:48)
[2019-11-15] MEDS: SODIUM CHLORIDE 0.9% 1000ML 1,000 ML IV SCH (18:57)
[2019-11-15] MEDS ORDERED: ALBUTEROL HFA 8 GM INHALER INH PRN (19:15)
[2019-11-15] MEDS: DOXYCYCLINE HYCLATE 100 MG in DEXTROSE 5% 100 ML IV SCH (20:20)
[2019-11-15] MEDS: cefTRIAXone SODIUM 2,000 MG in DEXTROSE 5% 50 ML IV SCH (20:21)
[2019-11-15] MEDS: metroNIDAZOLE 500 MG/100 ML BAG IV SCH (20:21)
[2019-11-15] MEDS: DOXAZosin MESYLATE TAB 2 MG TAB PO SCH (20:22)
[2019-11-15] MEDS: BACLOFEN 10 MG TAB PO SCH (20:22)
[2019-11-16] MEDS: guaiFENesin SUGAR FREE 100 MG/5 ML UDC PO SCH ×4 (00:04→17:53)
[2019-11-16] MEDS: metroNIDAZOLE 500 MG/100 ML BAG IV SCH ×3 (03:56→21:12)
[2019-11-16 06:00] LABS: Basophils # (auto) 0.02 K/uL (0-0.2); Basophils % (auto) 0.2 %; Eosinophils # (auto) 0.97 K/uL (0-0.5); Eosinophils % (auto) 9.6 %; Hematocrit (blood only) 42.4 % (42-52); Hemoglobin 14.3 g/dL (14.0-18.0); Immature Granulocytes # (auto) 0.03 K/uL (0.00-0.02); Immature Granulocytes % (auto) 0.3 %; Lymphocytes # (auto) 1.45 K/uL (1.2-3.4); Lymphocytes % (auto) 14.3 %; Mean Corpuscular Hgb Conc 33.7 g/dL (32-36); Mean Platelet Volume 10.7 fL (7.4-10.4); Monocytes # (auto) 0.89 K/uL (0.11-0.59); Monocytes % (auto) 8.8 %; Neutrophils # (auto) 6.78 K/uL (1.4-6.5); Neutrophils % (auto) 66.8 %; Platelet Count 187 K/uL (130-400); RDW Coefficient of Variation 13.8 % (11.5-14.5); RDW Standard Deviation 46.4 fL (36.4-46.3); Red Blood Count 4.61 M/uL (4.7-6.1); White Blood Count 10.14 K/uL (4.8-10.8)
[2019-11-16 06:13] LABS: INR 1.2 (0.9-1.1); Partial Thromboplastin Ratio 1.3; Partial Thromboplastin Time 37.5 Seconds (21.0-31.0); Prothrombin Time 12.9 Seconds (9.0-12.0)
[2019-11-16 06:37] LABS: BUN Creatinine Ratio 31.7 (10-20); Creatinine Clr Calc Pharmacy 67.2 ml/min; Est GFR (African American) 89.1; Est GFR (Non-African American) 76.8; Potassium 3.1 mmol/L (3.5-5.1)
[2019-11-16 06:41] LABS: Prostate Specific Antigen 9.3 ng/ml (0-4)
[2019-11-16] MEDS: SIMVASTATIN 20 MG TAB PO SCH (08:12)
[2019-11-16] MEDS: BACLOFEN 10 MG TAB PO SCH ×2 (08:12→21:14)
[2019-11-16] MEDS: DOXYCYCLINE HYCLATE 100 MG in DEXTROSE 5% 100 ML IV SCH ×2 (08:18→20:26)
[2019-11-16] MEDS: SODIUM CHLORIDE 0.9% 1000ML 1,000 ML IV SCH ×2 (08:18→23:14)
--- NOTE | 2019-11-16 16:18 | Hospitalist Progress Note ---
Date of Service November 16, 2019 Assessment & Plan (1) UTI (urinary tract infection): Fever on 11/13, CT findings of abd/pelvis, u/a findings, urinary retention, etc all suggest UTI. Received cefepime in ER. continue rocephin 2gm daily (this will cover LLL pneumonia as well). no growth on blood cultures, pinpoint growth only on urine culture WBC normal, no fever since admission, vitals stable PSA elevated at 9.3, unsure if this is due to prostatitis, could be from ennis insertion? (2) BPH (benign prostatic hyperplasia): Typically takes doxazosin at home. consider changing to Flomax keep ennis for now will discuss with urology tomorrow, no clear indication for inpatient consult at this time Consider trial of void prior to d/c OR send home with ennis - favor latter given severity of the urinary retention. (3) Acute kidney injury: Obstruction likely playing the largest role given the retention of 1000cc+ of urine. Obstruction 2nd to BPH. Cont alpha roger. treated with IV fluids and relief of obstruction Cr down to 0.9 from 1.7, thus resolved mild hypokalemia (4) Acute urinary retention: 2nd to suspected UTI +/- prostatitis along with BPH. Ennis. Treat UTI. Alpha roger, etc. (5) Gross hematuria: UTI can cause such. Prostatitis can cause such. Ennis trauma during insertion can contribute. And he is also on xarelto which can worsen all of the above. Cannot rule out bladder tumor, etc. Nothing obvious on CT. Given severity of hematuria will hold xarelto. hematuria resolved today plan to resume Xarelto tomorrow (6) Coagulopathy: Novel agents (e.g. xarelto) can often cause mild elevation in the INR but today the INR is 1.7 and PTT is also elevated. Could he have an acquired inhibitor? vitamin K deficiency? other factor deficiency? Hold xarelto. INR down to 1.2, PTT down to 37 no further work up, will resume Xarelto tomorrow AM (7) Pneumonia: LLL. Pt's states he has chronic cough and that his breathing is at baseline Chronic aspiration from dysphagia from previous stroke? Rocephin for UTI will cover LLL pneumonia. continue Doxy and Flagyl for today, likely stop tomorrow speech evaluation done today, he is aspirating at the bedside plan for video swallow study on Tuesday (8) Benign hypertension: BP is low-normal. continue to hold norvasc. Follow BPs. Hydrate w/ NS. 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 Now with [employer] shunt. significant left-sided hemiparesis from such. PT, OT while here. Cont baclofen. (12) Dysphagia: see discussion above speech eval place on "easy to chew" diet in meantime aspiration precautions Admission and Anticipated Discharge Date Admission Date: November 15, 2019 Subjective patient is stable today, no acute issues evaluated by speech therapy, he is aspirating all liquids discussed with speech therapist, he had this issue in the past, resolved after speech therapy will plan for video swallow study on Tuesday no fever, breathing stable, still with cough reviewed labs, WBC normal, Hb stable, K 3.1, Cr 0.99, PSA elevated at 9.3 no growth on blood cultures, pinpoint growth only on urine culture Review of Systems Review of Systems: All systems reviewed & are unremarkable except as noted in HPI & below Constitutional: + fatigue and + weakness; no fever Respiratory: + cough Cardiovascular: no chest pain Gastrointestinal: + dysphagia; no abdominal pain, no nausea, no vomiting, no constipation and no diarrhea/loose stools Genitourinary: + problem reported (ennis); no hematuria Physical Exam Constitutional: well developed, + thin, + frail appearing, + disheveled and cooperative Eyes: PERRL, conjunctivae normal, anicteric sclerae ENMT: external ear and nose normal, oropharynx normal Neck: trachea midline, no thyromegaly Respiratory: normal respiratory effort and + cough; no respiratory distress Auscultation: + crackles (left base) and + rhonchi; no rales and no wheezes Cardiovascular: RRR, no murmur, no edema Gastrointestinal (Abdomen): normal bowel sounds, soft, nontender, no hepatosplenomegaly Musculoskeletal: Head/Neck/Chest: normocephalic and head atraumatic Extremities: extremities normal to inspection and + abnormal strength (generalized weakness) Skin: no rashes, warm and dry Neurologic: patellar DTR's 2+ bilat, sensation intact and PERRL, EOMI, accommodation nl, no face palsy, no dysarthria Psychiatric: A+Ox3, euthymic affect Lymphatic: no cervical or axillary lymphadenopathy Results & Data Results & Data ([facility]) Vital Signs (Past 12 Hours) Vital Signs Temp Pulse Pulse Resp BP Pulse Ox 11/16/19 15:16 37.1 C 71 18 114/70 94 11/16/19 11:10 36.6 C 71 18 99/62 L 94 11/16/19 08:00 70 11/16/19 07:07 36.5 C 71 18 111/71 94 11/16/19 04:30 71 Laboratory Results Laboratory Results - last 24 hr 11/16/19 11/16/19 11/16/19 05:21 05:21 05:21 WBC 10.14 RBC 4.61 L Hgb 14.3 Hct 42.4 MCV 92.0 MCH 31.0 MCHC 33.7 RDW Std Deviation 46.4 H RDW Coeff of Aquiles 13.8 Plt Count 187 MPV 10.7 H Immature Gran % (Auto) 0.3 Neut % (Auto) 66.8 Lymph % (Auto) 14.3 Tucker % (Auto) 8.8 Eos % (Auto) 9.6 Baso % (Auto) 0.2 Immature Gran # (Auto) 0.03 H Neut # (Auto) 6.78 H Lymph # (Auto) 1.45 Tucker # (Auto) 0.89 H Eos # (Auto) 0.97 H Baso # (Auto) 0.02 PT 12.9 H INR 1.2 H APTT 37.5 H PTT Ratio 1.3 Sodium 138 Potassium 3.1 L D Chloride 106 Carbon Dioxide 25 Anion Gap 7.0 BUN 31 H Creatinine 0.99 D Est Cr Clr Drug Dosing 67.2 Est GFR ( Amer) 89.1 Est GFR (Non-Af Amer) 76.8 BUN/Creatinine Ratio 31.7 H Glucose 88 Calcium 8.0 L AST 34 Prostate Specific Ag 9.300 H Microbiology 11/15/19 12:49 Urine,Straight Cath Urine Culture - Preliminary No growth - Less than 1,000 colonies/mL, Final report to follow. 11/15/19 12:30 Blood Aerobic Blood Culture - Preliminary No growth in Aerobic bottle after 24 hours. 11/15/19 12:30 Blood Anaerobic Blood Culture - Preliminary No growth in Anaerobic bottle after 24 hours. 11/15/19 12:25 Blood Aerobic Blood Culture - Preliminary No growth in Aerobic bottle after 24 hours. 11/15/19 12:25 Blood Anaerobic Blood Culture - Preliminary No growth in Anaerobic bottle after 24 hours. Medications Administered Current Inpatient Medications Acetaminophen (Tylenol) 500 mg PO Q6H PRN PRN Reason: Pain Stop: 12/15/19 18:01 Albuterol (Ventolin Hfa) 2 puffs INH Q6H PRN PRN Reason: SOB/WHEEZING Stop: 12/15/19 19:14 Baclofen (Lioresal) 5 mg PO BID [facility] Stop: 12/15/19 20:59 Last Admin: 11/16/19 08:12 Dose: 5 mg Documented by: Doxazosin Mesylate (Cardura) 2 mg PO QPM [facility] Stop: 12/15/19 20:59 Last Admin: 11/15/19 20:22 Dose: 2 mg Documented by: Guaifenesin (Robitussin Sugar Free Syrup) 100 mg PO Q6 [facility] Stop: 12/15/19 18:14 Last Admin: 11/16/19 14:15 Dose: 100 mg Documented by: Sodium Chloride (Nss 1000ml) 1,000 mls @ 80 mls/hr IV .[id number] [facility] Stop: 12/15/19 16:12 Last Admin: 11/16/19 08:18 Dose: 80 mls/hr Documented by: Metronidazole (Flagyl) 500 mg in 100 mls @ 100 mls/hr IV Q8H [facility] Stop: 11/22/19 16:12 Last Infusion: 11/16/19 13:00 Dose: Infused Documented by: Ceftriaxone Sodium 2,000 mg/ (Dextrose) 70 mls @ 100 mls/hr IV Q24H [facility]; Protocol Stop: 11/22/19 19:59 Last Infusion: 11/15/19 21:02 Dose: Infused Documented by: Doxycycline Hyclate 100 mg/ (Dextrose) 110 mls @ 50 mls/hr IV Q12H [facility]; Protocol Stop: 11/22/19 19:59 Last Infusion: 11/16/19 10:30 Dose: Infused Documented by: Ondansetron HCl (Zofran) 4 mg IV Q6H PRN PRN Reason: Nausea Stop: 12/15/19 18:01 Simvastatin (Zocor) 20 mg PO DAILY [facility] Stop: 12/16/19 08:59 Last Admin: 11/16/19 08:12 Dose: 20 mg Documented by: PG Care Time/CCT Total # of Minutes Spent Total Time Spent with Patient: Total time spent is greater than 50% in coordination of care (as documented) at patient's floor/unit and/or counseling patient: Coding Level of Care Code 99003 Subseq Hosp Care Lvl 3 Diagnoses UTI (urinary tract infection) N30.01 Hematuria presence: with hematuria Urinary tract infection type: acute cystitis BPH (benign prostatic hyperplasia) N40.1; R33.8 Lower urinary tract symptom detail: urinary retention Lower urinary tract symptom presence: symptoms present Acute kidney injury N17.9 Acute urinary retention R33.8 Gross hematuria R31.0 Coagulopathy D68.9 Pneumonia J18.9 Laterality: left Lung location: lower lobe of lung Pneumonia type: due to unspecified organism Benign hypertension I10 Hyperlipidemia E78.2 Hyperlipidemia type: mixed hyperlipidemia DVT (deep venous thrombosis) I82.402 Affected thrombotic vein of extremity: unspecified vein of extremity Chronicity: unspecified DVT location: lower extremity Laterality: left Hemiparesis affecting left side as late effect of cerebrovascular accident I69.354 Dysphagia R13.10 Dysphagia type: unspecified (1) UTI (urinary tract infection) Hematuria presence: with hematuria Urinary tract infection type: acute cystitis Qualified Code(s): N30.01 - Acute cystitis with hematuria (2) BPH (benign prostatic hyperplasia) Lower urinary tract symptom detail: urinary retention Lower urinary tract symptom presence: symptoms present Qualified Code(s): N40.1 - Benign prostatic hyperplasia with lower urinary tract symptoms; R33.8 - Other retention of urine (3) DVT (deep venous thrombosis) Affected thrombotic vein of extremity: unspecified vein of extremity Chronicity: unspecified DVT location: lower extremity Laterality: left Qualified Code(s): I82.402 - Acute embolism and thrombosis of unspecified deep veins of left lower extremity (4) Dysphagia Dysphagia type: unspecified Qualified Code(s): R13.10 - Dysphagia, unspecified (5) Hyperlipidemia Hyperlipidemia type: mixed hyperlipidemia Qualified Code(s): E78.2 - Mixed hyperlipidemia (6) Pneumonia Laterality: left Lung location: lower lobe of lung Pneumonia type: due to unspecified organism Qualified Code(s): J18.9 - Pneumonia, unspecified organism
[2019-11-16] MEDS: cefTRIAXone SODIUM 2,000 MG in DEXTROSE 5% 50 ML IV SCH (20:23)
[2019-11-16] MEDS: DOXAZosin MESYLATE TAB 2 MG TAB PO SCH (21:14)
[2019-11-16] MEDS: POTASSIUM CHLORIDE 10 MEQ TABCR PO SCH (22:28)
[2019-11-17] MEDS: guaiFENesin SUGAR FREE 100 MG/5 ML UDC PO SCH ×4 (00:51→17:28)
[2019-11-17] MEDS: metroNIDAZOLE 500 MG/100 ML BAG IV SCH ×3 (04:55→21:02)
[2019-11-17] MEDS: BACLOFEN 10 MG TAB PO SCH ×2 (08:49→21:13)
[2019-11-17] MEDS: POTASSIUM CHLORIDE 10 MEQ TABCR PO SCH ×2 (08:49→21:13)
[2019-11-17] MEDS: RIVAROXABAN 20 MG TAB PO SCH (08:49)
[2019-11-17] MEDS: SIMVASTATIN 20 MG TAB PO SCH (08:49)
[2019-11-17] MEDS: DOXYCYCLINE HYCLATE 100 MG in DEXTROSE 5% 100 ML IV SCH ×2 (08:52→21:02)
[2019-11-17 08:58] LABS: BUN Creatinine Ratio 19.9 (10-20); Calcium 7.8 mg/dl (8.5-10.1); Creatinine Clr Calc Pharmacy 86.4 ml/min; Est GFR (African American) 106.6; Est GFR (Non-African American) 91.9; Potassium 3.3 mmol/L (3.5-5.1)
--- NOTE | 2019-11-17 15:05 | Hospitalist Progress Note ---
Date of Service November 17, 2019 Assessment & Plan (1) UTI (urinary tract infection): Fever on 11/13, CT findings of abd/pelvis, u/a findings, urinary retention, etc all suggest UTI. Received cefepime in ER. continue rocephin 2gm daily (this will cover LLL pneumonia as well). no growth on blood cultures, pinpoint growth only on urine culture WBC normal, no fever since admission, vitals stable PSA elevated at 9.3, unsure if this is due to prostatitis, could be from ennis insertion? will plan for 7 days total antibiotics, keep on IV antibiotics while admitted (2) BPH (benign prostatic hyperplasia): Typically takes doxazosin at home. consider changing to Flomax keep ennis for now will discuss with urology prior to discharge plan to go home with ennis, will reach out to urology for office follow up for voiding trial talked with patient's , she is fine with managing ennis after discharge (3) Acute kidney injury: Obstruction likely playing the largest role given the retention of 1000cc+ of urine. Obstruction 2nd to BPH. Cont alpha roger. treated with IV fluids and relief of obstruction Cr down to 0.9 from 1.7, thus resolved mild hypokalemia, K is 3.3, replacing, repeat tomorrow (4) Acute urinary retention: 2nd to suspected UTI +/- prostatitis along with BPH. Ennis. Treat UTI. Alpha roger, etc. (5) Gross hematuria: UTI can cause such. Prostatitis can cause such. Ennis trauma during insertion can contribute. And he is also on xarelto which can worsen all of the above. Cannot rule out bladder tumor, etc. Nothing obvious on CT. Given severity of hematuria will hold xarelto. hematuria resolved 11/15 plan to resume Xarelto today (6) Coagulopathy: Novel agents (e.g. xarelto) can often cause mild elevation in the INR but today the INR is 1.7 and PTT is also elevated. Could he have an acquired inhibitor? vitamin K deficiency? other factor deficiency? Hold xarelto. INR down to 1.2, PTT down to 37 no further work up, will resume Xarelto today (7) Pneumonia: LLL. Pt's states he has chronic cough and that his breathing is at baseline Chronic aspiration from dysphagia from previous stroke? Rocephin for UTI will cover LLL pneumonia. stop Flagyl today, continue Doxy for now speech evaluation done 11/15, he is aspirating at the bedside recommended video swallow patient and his are against the video swallow, had terrible experience in the past I will cancel the test because he will not participate (8) Benign hypertension: BP is low-normal. continue to hold norvasc. Follow BPs. Hydrate w/ NS. 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 significant left-sided hemiparesis from such. PT, OT while here. Cont baclofen. (12) Dysphagia: see discussion above speech eval place on "easy to chew" diet in meantime aspiration precautions Admission and Anticipated Discharge Date Admission Date: November 15, 2019 Subjective patient doing well, breathing comfortably continues to have a cough, not bringing up much sputum he told me that he does NOT want to have a video swallow study he had a terrible experience with the studies two years ago his confirmed that he does not want the video swallow reviewed cultures, no growth on blood culture, pinpoint growth on urine culture said that he has never required a ennis, does not follow with urologist K is 3.3, Cr is 0.7 Review of Systems Review of Systems: All systems reviewed & are unremarkable except as noted in HPI & below Constitutional: + fatigue and + weakness; no fever and no sweats Respiratory: + cough and + sputum production; no dyspnea, no dyspnea on exertion, no hemoptysis and no wheezing Cardiovascular: no chest pain and no edema Gastrointestinal: no abdominal pain, no nausea, no vomiting, no constipation and no diarrhea/loose stools Neurologic: + localized weakness (chronic hemiparesis) Physical Exam Constitutional: well developed, + thin, + frail appearing, + disheveled and cooperative Eyes: PERRL, conjunctivae normal, anicteric sclerae ENMT: external ear and nose normal, oropharynx normal Neck: trachea midline, no thyromegaly Respiratory: normal respiratory effort and + cough; no respiratory distress Auscultation: + crackles (left base) and + rhonchi; no rales and no wheezes Cardiovascular: RRR, no murmur, no edema Gastrointestinal (Abdomen): normal bowel sounds, soft, nontender, no hepatosplenomegaly Musculoskeletal: Head/Neck/Chest: normocephalic and head atraumatic Extremities: extremities normal to inspection and + abnormal strength (hemiparesis left side) Skin: no rashes, warm and dry Neurologic: patellar DTR's 2+ bilat, sensation intact and PERRL, EOMI, accommodation nl, no face palsy, no dysarthria Psychiatric: A+Ox3, euthymic affect Lymphatic: no cervical or axillary lymphadenopathy Results & Data Results & Data ([facility]) Vital Signs (Past 12 Hours) Vital Signs Temp Pulse Pulse Resp BP Pulse Ox 11/17/19 07:18 71 11/17/19 06:30 36.6 C 72 18 120/73 93 11/17/19 04:13 36.9 C 80 18 114/67 93 Laboratory Results Laboratory Results - last 24 hr 11/17/19 11/17/19 07:43 07:57 Sodium 139 Potassium 3.3 L Chloride 108 H Carbon Dioxide 26 Anion Gap 6.0 BUN 15 D Creatinine 0.77 Est Cr Clr Drug Dosing 86.4 Est GFR ( Amer) 106.6 Est GFR (Non-Af Amer) 91.9 BUN/Creatinine Ratio 19.9 Glucose 97 POC Glucose 85 Calcium 7.8 L Medications Administered Current Inpatient Medications Acetaminophen (Tylenol) 500 mg PO Q6H PRN PRN Reason: Pain Stop: 12/15/19 18:01 Albuterol (Ventolin Hfa) 2 puffs INH Q6H PRN PRN Reason: SOB/WHEEZING Stop: 12/15/19 19:14 Baclofen (Lioresal) 5 mg PO BID [facility] Stop: 12/15/19 20:59 Last Admin: 11/17/19 08:49 Dose: 5 mg Documented by: Doxazosin Mesylate (Cardura) 2 mg PO QPM [facility] Stop: 12/15/19 20:59 Last Admin: 11/16/19 21:14 Dose: 2 mg Documented by: Guaifenesin (Robitussin Sugar Free Syrup) 100 mg PO Q6 [facility] Stop: 12/15/19 18:14 Last Admin: 11/17/19 13:57 Dose: 100 mg Documented by: Metronidazole (Flagyl) 500 mg in 100 mls @ 100 mls/hr IV Q8H [facility] Stop: 11/22/19 16:12 Last Admin: 11/17/19 13:57 Dose: 100 mls/hr Documented by: Ceftriaxone Sodium 2,000 mg/ (Dextrose) 70 mls @ 100 mls/hr IV Q24H [facility]; Protocol Stop: 11/22/19 19:59 Last Infusion: 11/16/19 21:12 Dose: Infused Documented by: Doxycycline Hyclate 100 mg/ (Dextrose) 110 mls @ 50 mls/hr IV Q12H [facility]; Protocol Stop: 11/22/19 19:59 Last Infusion: 11/17/19 11:50 Dose: Infused Documented by: Ondansetron HCl (Zofran) 4 mg IV Q6H PRN PRN Reason: Nausea Stop: 12/15/19 18:01 Potassium Chloride (Klor-Con M10) 10 meq PO BID [facility] Stop: 12/16/19 20:59 Last Admin: 11/17/19 08:49 Dose: 10 meq Documented by: Rivaroxaban (Xarelto) 20 mg PO DAILY [facility] Stop: 12/17/19 08:59 Last Admin: 11/17/19 08:49 Dose: 20 mg Documented by: Simvastatin (Zocor) 20 mg PO DAILY [facility] Stop: 12/16/19 08:59 Last Admin: 11/17/19 08:49 Dose: 20 mg Documented by: PG Care Time/CCT Total # of Minutes Spent Total Time Spent with Patient: Total time spent is greater than 50% in coordination of care (as documented) at patient's floor/unit and/or counseling patient: Coding Level of Care Code 91952 Subseq Hosp Care Lvl 3 Diagnoses UTI (urinary tract infection) N30.01 Urinary tract infection type: acute cystitis Hematuria presence: with hematuria BPH (benign prostatic hyperplasia) N40.1; R33.8 Lower urinary tract symptom presence: symptoms present Lower urinary tract symptom detail: urinary retention Acute kidney injury N17.9 Acute urinary retention R33.8 Gross hematuria R31.0 Coagulopathy D68.9 Pneumonia J18.9 Laterality: left Lung location: lower lobe of lung Pneumonia type: due to unspecified organism Benign hypertension I10 Hyperlipidemia E78.2 Hyperlipidemia type: mixed hyperlipidemia DVT (deep venous thrombosis) I82.402 Affected thrombotic vein of extremity: unspecified vein of extremity Chronicity: unspecified DVT location: lower extremity Laterality: left Hemiparesis affecting left side as late effect of cerebrovascular accident I69.354 Dysphagia R13.10 Dysphagia type: unspecified (1) UTI (urinary tract infection) Urinary tract infection type: acute cystitis Hematuria presence: with hematuria Qualified Code(s): N30.01 - Acute cystitis with hematuria (2) BPH (benign prostatic hyperplasia) Lower urinary tract symptom presence: symptoms present Lower urinary tract symptom detail: urinary retention Qualified Code(s): N40.1 - Benign prostatic hyperplasia with lower urinary tract symptoms; R33.8 - Other retention of urine (3) Pneumonia Laterality: left Lung location: lower lobe of lung Pneumonia type: due to unspecified organism Qualified Code(s): J18.9 - Pneumonia, unspecified organism (4) Hyperlipidemia Hyperlipidemia type: mixed hyperlipidemia Qualified Code(s): E78.2 - Mixed hyperlipidemia (5) DVT (deep venous thrombosis) Affected thrombotic vein of extremity: unspecified vein of extremity Chronicity: unspecified DVT location: lower extremity Laterality: left Qualified Code(s): I82.402 - Acute embolism and thrombosis of unspecified deep veins of left lower extremity (6) Dysphagia Dysphagia type: unspecified Qualified Code(s): R13.10 - Dysphagia, u nspecified
[2019-11-17] MEDS: cefTRIAXone SODIUM 2,000 MG in DEXTROSE 5% 50 ML IV SCH (21:02)
[2019-11-17] MEDS: DOXAZosin MESYLATE TAB 2 MG TAB PO SCH (21:13)
[2019-11-18] MEDS: guaiFENesin SUGAR FREE 100 MG/5 ML UDC PO SCH ×2 (02:39→06:36)
[2019-11-18] MEDS: metroNIDAZOLE 500 MG/100 ML BAG IV SCH (04:24)
[2019-11-18 06:22] LABS: Basophils # (auto) 0.03 K/uL (0-0.2); Basophils % (auto) 0.3 %; Eosinophils # (auto) 0.61 K/uL (0-0.5); Eosinophils % (auto) 7.1 %; Hematocrit (blood only) 40.1 % (42-52); Hemoglobin 14.1 g/dL (14.0-18.0); Immature Granulocytes # (auto) 0.03 K/uL (0.00-0.02); Immature Granulocytes % (auto) 0.3 %; Lymphocytes # (auto) 1.79 K/uL (1.2-3.4); Lymphocytes % (auto) 20.8 %; Mean Corpuscular Hemoglobin 32.4 pg (25-34); Mean Corpuscular Hgb Conc 35.2 g/dL (32-36); Mean Corpuscular Volume 92.2 fL (80-100); Monocytes # (auto) 0.97 K/uL (0.11-0.59); Monocytes % (auto) 11.3 %; Neutrophils # (auto) 5.16 K/uL (1.4-6.5); Neutrophils % (auto) 60.2 %; Platelet Count 229 K/uL (130-400); RDW Coefficient of Variation 13.8 % (11.5-14.5); RDW Standard Deviation 46.8 fL (36.4-46.3); Red Blood Count 4.35 M/uL (4.7-6.1); White Blood Count 8.59 K/uL (4.8-10.8)
[2019-11-18 06:51] LABS: Calcium 7.9 mg/dl (8.5-10.1); Creatinine Clr Calc Pharmacy 91.1 ml/min; Est GFR (African American) 108.9; Potassium 3.3 mmol/L (3.5-5.1)
[2019-11-18] MEDS: RIVAROXABAN 20 MG TAB PO SCH (07:43)
[2019-11-18] MEDS: POTASSIUM CHLORIDE 10 MEQ TABCR PO SCH ×2 (07:44→20:07)
[2019-11-18] MEDS: BACLOFEN 10 MG TAB PO SCH ×2 (07:44→20:06)
[2019-11-18] MEDS: SIMVASTATIN 20 MG TAB PO SCH (07:44)
[2019-11-18] MEDS: DOXYCYCLINE HYCLATE 100 MG in DEXTROSE 5% 100 ML IV SCH (07:57)
--- NOTE | 2019-11-18 11:15 | Hospitalist Progress Note ---
Date of Service November 18, 2019 Assessment & Plan (1) UTI (urinary tract infection): Fever on 11/13, CT findings of abd/pelvis, u/a findings, urinary retention, etc all suggest UTI. Received cefepime in ER. treated with Rocephin 2gm IV daily while here no growth on blood cultures, pinpoint growth only on urine culture WBC normal, no fever since admission, vitals stable PSA elevated at 9.3, unsure if this is due to prostatitis, could be from ennis insertion? will plan for 7 days total antibiotics change to Cefdinir 300mg BID, last dose would be 5 in the morning (2) BPH (benign prostatic hyperplasia): Typically takes doxazosin at home, but this is for HTN, no mention of BPH in outpatient records BP is low to low normal here, will STOP Doxazosin start on Flomax 0.4mg daily keep ennis on discharge, change to leg bag please have nurse navigator set up urology visit for end of the week for voiding trial and follow up on elevated PSA (3) Acute kidney injury: Obstruction likely playing the largest role given the retention of 1000cc+ of urine. Obstruction 2nd to BPH. change to Flomax treated with IV fluids and relief of obstruction Cr down to 0.9 from 1.7, thus resolved mild hypokalemia, K is 3.3, continue PO replacement while inpatient (4) Acute urinary retention: 2nd to suspected UTI +/- prostatitis along with BPH. Ennis. Treat UTI. Flomax (5) Gross hematuria: UTI can cause such. Prostatitis can cause such. Ennis trauma during insertion can contribute. And he is also on xarelto which can worsen all of the above. Cannot rule out bladder tumor, etc. Nothing obvious on CT. Given severity of hematuria held Xarelto on admission hematuria resolved 11/15. urine has been clear ever since suspect it was due to trauma from ennis resumed Xarelto 11/16, no signs of bleeding (6) Coagulopathy: Novel agents (e.g. xarelto) can often cause mild elevation in the INR but today the INR is 1.7 and PTT is also elevated. Could he have an acquired inhibitor? vitamin K deficiency? other factor deficiency? Hold xarelto. INR down to 1.2, PTT down to 37 no further work up, will resume Xarelto (7) Pneumonia: LLL. Pt's states he has chronic cough and that his breathing is at baseline Chronic aspiration from dysphagia from previous stroke? Rocephin for UTI will cover LLL pneumonia. stopped Flagyl today, continue Doxycycline 100mg PO BID complete 5 days, last day would be morning on 11/19 speech evaluation done 11/15, concerns that he is aspirating at the bedside recommended video swallow patient and his are against the video swallow, had terrible experience in the past I will cancel the test because he will not participate (8) Benign hypertension: BP is low-normal. continue to hold norvasc. 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 significant left-sided hemiparesis from such. PT, OT while here. Cont baclofen. (12) Dysphagia: see discussion above speech eval place on "easy to chew" diet in meantime aspiration precautions again, patient does NOT want video swallow, order cancelled Admission and Anticipated Discharge Date Admission Date: November 15, 2019 Subjective patient more alert, more talkative today, feeling better no fever/chills, no dyspnea, minimal cough, no sputum production no chest pain, no abdominal pain, no nausea tolerating ennis catheter reviewed labs, WBC normal, Hb 14, K low at 3.3, Cr 0.7 reviewed cultures, no growth on blood or urine cultures called his , left a message with an update Review of Systems Review of Systems: All systems reviewed & are unremarkable except as noted in HPI & below Musculoskeletal: + muscle weakness (left hemiparesis) Physical Exam Constitutional: well developed, + frail appearing and cooperative Eyes: PERRL, conjunctivae normal, anicteric sclerae ENMT: external ear and nose normal, oropharynx normal Neck: trachea midline, no thyromegaly Respiratory: normal respiratory effort; no respiratory distress and no cough Auscultation: no crackles, no rales, no rhonchi and no wheezes Cardiovascular: RRR, no murmur, no edema Gastrointestinal (Abdomen): normal bowel sounds, soft, nontender, no hepatosplenomegaly Musculoskeletal: Head/Neck/Chest: normocephalic and head atraumatic Extremities: extremities normal to inspection and + abnormal strength (hemiparesis left side) Skin: no rashes, warm and dry Neurologic: patellar DTR's 2+ bilat, sensation intact and PERRL, EOMI, accommodation nl, no face palsy, no dysarthria Psychiatric: A+Ox3, euthymic affect Lymphatic: no cervical or axillary lymphadenopathy Results & Data Results & Data ([facility]) Vital Signs (Past 12 Hours) Vital Signs Temp Pulse Pulse Resp BP Pulse Ox 11/18/19 09:18 69 11/18/19 07:30 36.5 C 74 18 114/71 90 11/18/19 03:29 37.1 C 76 18 124/76 91 11/18/19 00:57 76 Laboratory Results Laboratory Results - last 24 hr 11/18/19 11/18/19 05:45 05:45 WBC 8.59 RBC 4.35 L Hgb 14.1 Hct 40.1 L MCV 92.2 MCH 32.4 MCHC 35.2 RDW Std Deviation 46.8 H RDW Coeff of Aquiles 13.8 Plt Count 229 MPV 10.0 Immature Gran % (Auto) 0.3 Neut % (Auto) 60.2 Lymph % (Auto) 20.8 [place] % (Auto) 11.3 Eos % (Auto) 7.1 Baso % (Auto) 0.3 Immature Gran # (Auto) 0.03 H Neut # (Auto) 5.16 Lymph # (Auto) 1.79 [place] # (Auto) 0.97 H Eos # (Auto) 0.61 H Baso # (Auto) 0.03 Sodium 141 Potassium 3.3 L Chloride 109 H Carbon Dioxide 27 Anion Gap 5.0 BUN 10 D Creatinine 0.73 Est Cr Clr Drug Dosing 91.1 Est GFR ( Amer) 108.9 Est GFR (Non-Af Amer) 94.0 BUN/Creatinine Ratio 14.0 Glucose 99 Calcium 7.9 L Microbiology 11/15/19 12:30 Blood Aerobic Blood Culture - Preliminary No growth in Aerobic bottle after 48 hours. 11/15/19 12:30 Blood Anaerobic Blood Culture - Preliminary No growth in Anaerobic bottle after 48 hours. 11/15/19 12:25 Blood Aerobic Blood Culture - Preliminary No growth in Aerobic bottle after 48 hours. 11/15/19 12:25 Blood Anaerobic Blood Culture - Preliminary No growth in Anaerobic bottle after 48 hours. 11/15/19 12:49 Urine,Straight Cath Urine Culture - Final No growth - less than 1,000 colonies/mL. Medications Administered Current Inpatient Medications Acetaminophen (Tylenol) 500 mg PO Q6H PRN PRN Reason: Pain Stop: 12/15/19 18:01 Albuterol (Ventolin Hfa) 2 puffs INH Q6H PRN PRN Reason: SOB/WHEEZING Stop: 12/15/19 19:14 Baclofen (Lioresal) 5 mg PO BID KAMRAN Stop: 12/15/19 20:59 Last Admin: 11/18/19 07:44 Dose: 5 mg Documented by: Doxazosin Mesylate (Cardura) 2 mg PO QPM KAMRAN Stop: 12/15/19 20:59 Last Admin: 11/17/19 21:13 Dose: 2 mg Documented by: Guaifenesin (Robitussin Sugar Free Syrup) 100 mg PO Q6 KAMRAN Stop: 12/15/19 18:14 Last Admin: 11/18/19 06:36 Dose: Not Given Documented by: Ceftriaxone Sodium 2,000 mg/ (Dextrose) 70 mls @ 100 mls/hr IV Q24H KAMRAN; Protocol Stop: 11/22/19 19:59 Last Infusion: 11/17/19 21:45 Dose: Infused Documented by: Doxycycline Hyclate 100 mg/ (Dextrose) 110 mls @ 50 mls/hr IV Q12H KAMRAN; Protocol Stop: 11/22/19 19:59 Last Infusion: 11/18/19 10:14 Dose: Infused Documented by: Ondansetron HCl (Zofran) 4 mg IV Q6H PRN PRN Reason: Nausea Stop: 12/15/19 18:01 Potassium Chloride (Klor-Con M10) 10 meq PO BID [facility] Stop: 12/16/19 20:59 Last Admin: 11/18/19 07:44 Dose: 10 meq Documented by: Rivaroxaban (Xarelto) 20 mg PO DAILY [facility] Stop: 12/17/19 08:59 Last Admin: 11/18/19 07:43 Dose: 20 mg Documented by: Simvastatin (Zocor) 20 mg PO DAILY [facility] Stop: 12/16/19 08:59 Last Admin: 11/18/19 07:44 Dose: 20 mg Documented by: PG Care Time/CCT Total # of Minutes Spent Total Time Spent with Patient: Total time spent is greater than 50% in coordination of care (as documented) at patient's floor/unit and/or counseling patient: Coding Level of Care Code 44229 Subseq Hosp Care Lvl 3 Diagnoses UTI (urinary tract infection) N30.01 Hematuria presence: with hematuria Urinary tract infection type: acute cystitis BPH (benign prostatic hyperplasia) N40.1; R33.8 Lower urinary tract symptom detail: urinary retention Lower urinary tract symptom presence: symptoms present Acute kidney injury N17.9 Acute urinary retention R33.8 Gross hematuria R31.0 Coagulopathy D68.9 Pneumonia J18.9 Laterality: left Lung location: lower lobe of lung Pneumonia type: due to unspecified organism Benign hypertension I10 Hyperlipidemia E78.2 Hyperlipidemia type: mixed hyperlipidemia DVT (deep venous thrombosis) I82.402 Affected thrombotic vein of extremity: unspecified vein of extremity Chronicity: unspecified DVT location: lower extremity Laterality: left Hemiparesis affecting left side as late effect of cerebrovascular accident I69.354 Dysphagia R13.10 Dysphagia type: unspecified (1) UTI (urinary tract infection) Hematuria presence: with hematuria Urinary tract infection type: acute cystitis Qualified Code(s): N30.01 - Acute cystitis with hematuria (2) BPH (benign prostatic hyperplasia) Lower urinary tract symptom detail: urinary retention Lower urinary tract symptom presence: symptoms present Qualified Code(s): N40.1 - Benign prostatic hyperplasia with lower urinary tract symptoms; R33.8 - Other retention of urine (3) DVT (deep venous thrombosis) Affected thrombotic vein of extremity: unspecified vein of extremity Chronicity: unspecified DVT location: lower extremity Laterality: left Qualified Code(s): I82.402 - Acute embolism and thrombosis of unspecified deep veins of left lower extremity (4) Dysphagia Dysphagia type: unspecified Qualified Code(s): R13.10 - Dysphagia, unspecified (5) Hyperlipidemia Hyperlipidemia type: mixed hyperlipidemia Qualified Code(s): E78.2 - Mixed hyperlipidemia (6) Pneumonia Laterality: left Lung location: lower lobe of lung Pneumonia type: due to unspecified organism Qualified Code(s): J18.9 - Pneumonia, unspecified organism
[2019-11-18] MEDS: DOXYCYCLINE HYCLATE 100 MG CAP PO SCH (20:06)
[2019-11-18] MEDS: CEFDINIR 300 MG CAP PO SCH (20:07)
[2019-11-18] MEDS ORDERED: TAMSULOSIN HCL 0.4 MG CAP PO SCH (21:00)
[2019-11-19] MEDS: SIMVASTATIN 20 MG TAB PO SCH (08:14)
[2019-11-19] MEDS: DOXYCYCLINE HYCLATE 100 MG CAP PO SCH (08:14)
[2019-11-19] MEDS: RIVAROXABAN 20 MG TAB PO SCH (08:14)
[2019-11-19] MEDS: CEFDINIR 300 MG CAP PO SCH (08:15)
[2019-11-19] MEDS: BACLOFEN 10 MG TAB PO SCH (08:15)
[2019-11-19] MEDS: POTASSIUM CHLORIDE 10 MEQ TABCR PO SCH (08:15)
--- NOTE | 2019-11-19 15:55 | Discharge Summary ---
Date of Service November 19, 2019 Admission HPI Per Admitting Provider 69yo male with h/o stroke with resulting left-sided hemiparesis in 2017, h/o DVT on xarelto, BPH, and HTN who presents from home with his due to decreased UOP/inability to void and abdominal bloating. Patient's provides all of the history during the encounter. Apparently about 24-36 hours ago the patient became incontinent of urine and this is atypical for him. Some of the urine was "dark" per his . He would only pass small amounts of urine. In addition, he had decreased appetite over the last 2-3 days along with fever to 101 degrees yesterday. No fever overnight or this am however. The patient has a chronic cough due to poor ability to expectorate his sputum. His cough may be slightly worse than baseline. His breathing, according to his , is always "noisy" and raspy/loud-sounding. He has had no loss of sense of taste or smell. No myalgias. No chills. No diarrhea. No vomiting. Patient has not left his home in many weeks. He used to have in-home caregivers but his canceled them in early September when the COVID pandemic started. They have had no visitors to the home. No sick contacts. just goes to grocery store and back wearing a mask. In the ER the attending physician felt the patient had urinary retention. A ennis was placed, and 1000+cc of javed-colored urine was obtained within a short period of time. The patient reported that his abdominal symptoms were much better following such. Pt's confirmed that he DID have his xarelto this am. Principal Diagnosis Fever, suspected UTI, urinary retention, Aspiration pneumonia, Acute kidney injury Discharge Exam Constitutional WD/WN, vitals as above Eyes + anicteric sclerae Neck trachea midline, no thyromegaly Respiratory no labored breathing Auscultation: + diminished lung sounds (at bases bilat); no crackles, no rhonchi and no wheezes Cardiovascular RRR, no murmur, no edema Chest (Breasts) Chest: normal inspection of chest Gastrointestinal (Abdomen) normal bowel sounds, soft, nontender, no hepatosplenomegaly Musculoskeletal Extremities: + extremities abnormal to inspection (LUE flexion contractures), no cyanosis and no clubbing Skin no rashes, warm and dry Neurologic + focal motor deficit (left hemiaperesis) and awake Speech / Cognition: + abnormal speech (garbled speech) Psychiatric Orientation: alert, oriented to person, oriented to place and cooperative Lymphatic no lymphedema Discharge Data Allergies Allergy/AdvReac Type Severity Reaction Status Date / Time bee venom protein (honey bee) Allergy Severe ANAPHYLAXIS Verified 11/15/19 13:38 No Known Drug Allergies Allergy Unknown . Verified 11/15/19 13:38 Consultations 11/15/19 14:42 ED Decision to Admit Stat Ordered Studies 11/15/19 12:08 CT abd pelvis IV con only Stat CXR Hospital Course (1) UTI (urinary tract infection): Fever on 11/13, CT findings of abd/pelvis, u/a findings, urinary retention, etc all suggest UTI, however urine culture with no growth. Received cefepime in ER. treated with Rocephin 2gm IV daily while here and then converted to cefdinir--> will finish out a 7 day course upon discharge No further fevers no growth on blood cultures WBC normal, vitals stable PSA elevated at 9.3, unsure if this is due to prostatitis, could be from ennis insertion? (2) BPH (benign prostatic hyperplasia): Typically takes doxazosin at home, but this is for HTN, no mention of BPH in outpatient records BP is low to low normal here, will STOP Doxazosin started on Flomax 0.4mg daily keep ennis on discharge, change to leg bag Have asked nurse navigator set up urology visit for end of the week for voiding trial and follow up on elevated PSA (3) Acute kidney injury: Obstruction likely playing the largest role given the retention of 1000cc+ of urine. Obstruction 2nd to BPH. changed to Flomax treated with IV fluids and relief of obstruction Cr down to 0.9 from 1.7, thus resolved mild hypokalemia, K is 3.3, continue PO replacement while inpatient, but not needed on discharge especially with aspiration and large pills--> advised to have potassium levels checked as an outpt with PCP (4) Acute urinary retention: 2nd to suspected UTI +/- prostatitis along with BPH. Ennis. Treat UTI. Flomax (5) Gross hematuria: UTI can cause such. Prostatitis can cause such. Ennis trauma during insertion can contribute. And he is also on xarelto which can worsen all of the above. Cannot rule out bladder tumor, etc. Nothing obvious on CT. Given severity of hematuria held Xarelto on admission hematuria resolved 11/15. urine has been clear ever since suspect it was due to trauma from ennis resumed Xarelto 11/16, no signs of bleeding (6) Coagulopathy: Novel agents (e.g. xarelto) can often cause mild elevation in the INR but the INR here was 1.7 and PTT is also elevated. Could he have an acquired inhibitor? vitamin K deficiency? other factor deficiency? Held xarelto and INR down to 1.2, PTT down to 37 no further work up, ok to continue Xarelto (7) Pneumonia: LLL. Pt's states he has chronic cough and that his breathing is at baseline Chronic aspiration from dysphagia from previous stroke? Seen previously on VFSS and pt and have refused repeat VFSS Requested Speech Therapy at home Speech Therapy here unable to make a recommendation as no VFSS was performed Received Rocephin and Flagyl, then cefdinir and doxy for UTI and LLL pneumonia. continue Doxycycline 100mg PO BID-complete 5 days, last day would be morning on 11/19 speech evaluation done 11/15, concerns that he is aspirating at the bedside recommended video swallow patient and his are against the video swallow, had terrible experience in the past The test was cancelled the test because he will not participate. (8) Benign hypertension: BP is low-normal, but BPs need to be well controlled for h/o hemorrhagic stroke Ok to restart norvasc. 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 significant left-sided hemiparesis from such. PT, OT while here provided Cont baclofen. (12) Dysphagia: see discussion above speech eval place on "easy to chew" diet in meantime aspiration precautions again, patient does NOT want video swallow, order cancelled Dispo-stable for dc to home with home health to be arranged with PT/OT/ST Discussed his care with his on the phone at length prior to discharge Total Time Total Time Spent Total Time Spent (In Minutes): 35 min Total Time Includes: Examination of the Patient, Discharge Planning and Medication Reconciliation Discharge Plan Discharge Items Patient Disposition: Home - Home Health Services Reason For Visit: URINARY RETENTION,LLL PNEUMONIA,UTI Discharge Diagnosis: Urinary tract infection, urinary retention, Aspiration pneumonia, Acute kidney injury Condition on Discharge: Fair Activity: Resume your previous activity Non-emergency contact: Primary Care Provider and Urologist Call non-emergency contact if: you have any medication questions, your symptoms worsen and your temperature is above 101 Follow-up/Referrals: Rosalva Gallegos MD [Primary Care Provider] - (Follow up within 1-[address] Gallegos check your potassium levels in the next 1-2 weeks.) Diet: Heart Healthy Addtl Attending Provider Instructions: Please finish out a course of doxycycline for one more day and cefdinir for 3 more days for the UTI and the pneumonia. The Ennis catheter will remain in place until you are seen by Urology to have it removed. It is ok to continue on the Xarelto as you have not had any more bleeding. Your doxazosin was discontinued in favor of Flomax to help with your urinary retention. Pending Studies at Discharge: No Stand-Alone Forms: [facility] Medications and DC Order Prescriptions: New doxycycline hyclate 100 mg Capsule 100 mg PO BID Qty: 2 RF: 0 tamsulosin 0.4 mg Capsule 0.4 mg PO HS Qty: 30 RF: 0 cefdinir 300 mg Capsule 300 mg PO Q12 Qty: 6 RF: 0 Continued epinephrine 1 mg/mL solution 0.3 mg SQ UD PRN (Reason: Anaphylaxis) RF: 0 Xarelto 20 mg tablet 20 mg PO DAILY Qty: 90 RF: 0 simvastatin 20 mg tablet 20 mg PO DAILY Qty: 90 RF: 0 amlodipine 5 mg tablet 5 mg PO QPM RF: 0 baclofen 10 mg tablet 5 mg PO BID RF: 0 acetaminophen [Tylenol Extra Strength] 500 mg Tablet 500 mg PO Q6H PRN (Reason: Pain) RF: 0 Discontinued doxazosin 2 mg tablet 2 mg PO QPM RF: 0 Discharge Orders: Discharge Order (Routine); Ordered 11/19/19 Ordered By: Melany Jack Admission Data Admit Date/Time: 11/15/19 16:13 Attending Provider: Melany Jack Admit Provider: Juan Carlos Almaguer Primary Care Provider: Rosalva Gallegos Other Providers: Tobin Kaminski ; Juan Carlos Almaguer Coding Level of Care Code D/C Day Management >30 mins Diagnoses UTI (urinary tract infection) N30.01 Urinary tract infection type: acute cystitis Hematuria presence: with hematuria BPH (benign prostatic hyperplasia) N40.1; R33.8 Lower urinary tract symptom presence: symptoms present Lower urinary tract symptom detail: urinary retention Acute kidney injury N17.9 Acute urinary retention R33.8 Gross hematuria R31.0 Coagulopathy D68.9 Pneumonia J18.9 Laterality: left Lung location: lower lobe of lung Pneumonia type: due to unspecified organism Benign hypertension I10 Hyperlipidemia E78.2 Hyperlipidemia type: mixed hyperlipidemia DVT (deep venous thrombosis) I82.402 Affected thrombotic vein of extremity: unspecified vein of extremity Chronicity: unspecified DVT location: lower extremity Laterality: left Hemiparesis affecting left side as late effect of cerebrovascular accident I69.354 Dysphagia R13.10 Dysphagia type: unspecified
== END 2019-11-19 16:49 | disposition home health service (06) | DRG 727 ==
LOC: ED 11:32 → SUATTDRO 16:13 → 2W 16:13

== ENCOUNTER 2020-08-25 08:37 | Observation (INO) ==
--- NOTE | 2020-08-20 21:16 | Anesthesiology Consultation ---
Date of Service August 20, 2020 Assessment & Plan (1) Encounter for pre-operative examination: - Per assessment on 08/19: Travel screen negative. No known COVID-19 positive contacts or current COVID-19 related symptoms. Surgeon arranged preop COVID test ing (done 08/19; [place])- results pending. - Urology visit: 08/13/20: "Patient had elevated PSA had decreased down to 5.9. Patient has considerable issues with obstruction. Imaging shows small bladder stones and obstructive signs. Confirmed on cystoscopy. Patient has considerable obstruction issues. Has previously had do straight caths. Patient has moderate issues at baseline with hemiparesis from a stroke. Patient has significant obstruction with bladder stone formation. Has not required straight cathing in the last few months." Chart Review Chart Review: Acceptable Risk for Surgery and Patient NOT seen in Pre Admission Testing History Surgery Operation Date: 08/25/20 14:30 Proposed Procedures p Transurethral Resection Prostate - Gómez Chapman, DO Height/Weight Height: 5 ft 9 in Weight: 73.482 kg Allergies Allergy/AdvReac Type Severity Reaction Status Date / Time bee venom protein (honey bee) Allergy Severe Anaphylaxis Verified 08/20/20 20:57 ciprofloxacin [From Cipro] Allergy Itchy Verified 08/20/20 21:15 Medications Home Medications Medication Instructions Recorded Confirmed Last Taken acetaminophen [Tylenol Extra 500 mg PO Q6H PRN 09/30/18 08/19/20 Unknown Strength] epinephrine 1 mg/mL injection 0.3 mg SQ UD PRN 01/15/19 08/19/20 Unknown solution coenzyme Q10 10 mg capsule 10 mg PO HS cap 11/27/19 08/19/20 Unknown miscellaneous medical supply #1 ea 01/02/20 08/13/20 Unknown amlodipine 5 mg tablet 5 mg PO QPM #90 tab 01/23/20 08/19/20 Unknown baclofen 10 mg tablet 5 mg PO BID #90 tab 01/23/20 08/19/20 Unknown Wheelchair (Manual or Powered) #1 ea 02/27/20 08/13/20 Unknown tamsulosin 0.4 mg capsule 0.4 mg PO PM cap 07/23/20 08/19/20 Unknown sulfamethoxazole 800 1 tab PO BID 7 Days #14 tab 08/08/20 08/19/20 Unknown mg-trimethoprim 160 mg tablet dutasteride 0.5 mg PO PM 08/19/20 08/19/20 Unknown lactobacillus combination no.4 3,000 mmu cells PO QAM 08/19/20 08/19/20 Unknown [Probiotic] rivaroxaban [Xarelto] 20 mg PO QAM 08/19/20 08/19/20 Unknown simvastatin 20 mg PO PM 08/19/20 08/19/20 Unknown Past Medical History Medical History Bladder stones BPH (benign prostatic hyperplasia) Degenerative disc disease DVT (deep venous thrombosis) LLE (09/2018), on Xarelto GERD (gastroesophageal reflux disease) occasional Hemiparesis affecting left side as late effect of cerebrovascular accident "severe" Hemorrhagic stroke 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" residual left sided hemiparesis, dysarthria Hyperlipidemia Hypertension UTI (urinary tract infection) finished treatment on 08/15/20 Wheelchair bound Past Family History Family History Uncle Colorectal cancer Father Myocardial infarction Mother Stroke Other No family history of adverse response to anesthesia Denies family history of Ovarian cancer Prostate cancer Breast cancer Past Surgical History Surgical History History of appendectomy History of carpal tunnel release of both wrists History of colonoscopy History of esophagogastroduodenoscopy (EGD) History of eye surgery retina sx on right eye History of fusion of cervical spine Decreased cervical extension* History of phacoemulsification of cataract of right eye with intraocular lens implantation History of tooth extraction Hx of testicular mass Testicular mass excision PEG (percutaneous endoscopic gastrostomy) status 07/2017 > since removed S/P REFLESHER shunt placed in [place] 06/2017 > r/t stroke Social History Smoking Status: Former smoker tobacco type: cigarettes Do You Dip or Chew Tobacco: No Smoking End Date: 5 yrs ago Hx Alcohol Use: No Alcohol type: hard liquor alcohol intake frequency: holidays/special occasions only Hx Substance Use: No substance use type: does not use Testing Laboratory Results 08/20/20 WBC 7.78 H/H 17.4/52.7 PLATELETS 208 SODIUM 140 POTASSIUM 4.0 CHLORIDE 107 CO2 27 BUN 14 CREATININE 1.03 GLUCOSE 107 Electrocardiogram Date: 11/15/19 NSR at 84bpm. PRWP, consider anterior [place] vs. lead placement vs. LVH (no significant change compared to 09/04/17 per costumed character entertainer review). Chest X-Ray Date: 11/15/19 Linear bibasilar opacities are suggestive of probable atelectasis. Pneumonitis considered less likely. Right greater than left subdiaphragmatic lucencies are suggestive of superimposed air within the bowel and stomach. Pneumoperitoneum considered less likely. This finding could be correlated with an upright view of the abdomen. At anesthesiologist discretion AM DOS if repeat CXR needed* Other Testing Abdomen/Pelvis CT: 05/23/20: Mild patchy airspace opacities are seen in the right lower lobe and lingula. Correlate clinically for evidence of an infectious/inflammatory pneumonitis. There is pericystic inflammation. Correlate clinically and with urinalysis for evidence of cystitis. Prostatomegaly. There are small bladder calculi. No calculi are identified in either kidney. Cardiomegaly and small pleural effusions. Cholelithiasis. Trace free fluid in the pelvis is nonspecific and likely related to the presence of a shunt catheter.At anesthesiologist discretion AM DOS if CXR needed*
[~2020-08-25 08:37] MED LIST changes: -ACET5LIQ PEG; -AMLO-110 PEG; -ARTI1SPR3 PO; +DEXAMETHASONE SOD INJ 4 MG/ML VIAL ONE; -DOCU5LIQ PEG; -DOXA2TAB PEG; -ENOX30IN4 SQ; +LIDOCAINE HCL 2% 2 ML VIAL/AMP(20MG/ML) INFIL ONE; +LR 15ML/HR IV SCH; +MIDAZOLAM HCL 1 MG/ML 2ML VIAL ONE; -NUTR-673; -NUTR-673 PEG; -OMEP20CA59 PEG; +ONDANSETRON INJ 2 MG/ML 2 ML VIAL ONE; -PROM1SUP19 PR; +PROPOFOL IV EMULSION 10 MG/ML 20 ML VIAL IV ONE; -SENN8.8S5 PEG; -[UNRECOGNIZED DRUG - OTHER] PEG; +ceFAZolin 2000MG 2,000 MG/15 ML SYR IV SCH; +fentaNYL citrate 100 MCG/2 ML VIAL ONE
--- NOTE | 2020-08-25 09:31 | History & Physical Bridge Note ---
Date of Service August 25, 2020 History & Physical Bridge Note I have examined the patient, reviewed the History & Physical and in the interval since the performance of the History & Physical I have noted the following changes of clinical significance: no changes noted
[2020-08-25] MEDS ORDERED: EPINEPHRINE 1 MG/ML SQ PRN (09:38)
[2020-08-25] MEDS ORDERED: ACETAMINOPHEN 500 MG TAB PO PRN (09:38)
[2020-08-25] MEDS ORDERED: fentaNYL citrate 100 MCG/2 ML VIAL IV PRN (09:44)
[2020-08-25] MEDS ORDERED: ePHEDrine sulfate 50 MG/ML AMP IV PRN (09:44)
[2020-08-25] MEDS ORDERED: ATROPINE SULFATE 0.1 MG/ML 10ML SYR IV PRN (09:44)
[2020-08-25] MEDS ORDERED: ONDANSETRON INJ 2 MG/ML 2 ML VIAL IV PRN ×2 (09:44→13:03)
[2020-08-25] MEDS ORDERED: fentaNYL citrate 100 MCG/2 ML VIAL ONE (11:06)
--- NOTE | 2020-08-25 11:26 | Operative Report ---
PG Post Operative Report Pre & Post Diagnosis Operation Date: 08/25/20 10:05 Pre-Op Diagnosis: Benign Prostatic Hyperplasia with Lower Urinary Tract Symptoms, Bladder Stones Post-Op Diagnosis: Benign Prostatic Hyperplasia with Lower Urinary Tract Symptoms, Bladder Stones I identified the patient and participated in the time-out.: Yes Procedure Operation Date: 08/25/20 10:05 Actual Procedures p Transurethral Resection Prostate, extraction and destruction of bladder stones(Not Applicable) - Gómez Chapman, Surgeon Gómez Chapman, II, DO Peanut Separator None Estimated Blood Loss 15 Findings Consistent with Post-Op Diagnosis Large Prostate with obstruction. Innumerable bladder stones in base of bladder with largest around 3-4 mm Specimens Prostate adenoma with stone fragments Drains 24Fr [address] C[address]ter Anesthesia Type General Complications none Disposition Disposition: Recovery Room Indications Patient with obstruction due to prostate enlargement. Risks and benefits discussed at length. Description of Procedure Patient was consented and brought back to the operating room. Patient was placed under anesthesia in the supine position and moved to the dorsal lithotomy position. Patient was prepped and draped in the regular sterile fashion. A time out was completed. A 30degree Cystoscope was placed into the bladder and the entire bladder was examined. The UO's were identified as well as the bladder neck, trigone, dome, and the other important landmarks. The prostatic urethra and large lobes/adenoma was assessed and the veru and bladder neck identified and area/size was assessed. The multiple bladder stones were destroyed and irrigated out. Once cleared the bladder was inspected again and no major stones appeared to be within the bladder. The resection scope was placed and the fine bipolar loop was selected. Starting at the 5 and 7 o'clock positions, a channel was created from bladder neck to the veru. The lateral lobes from 1 and 11 o'clock down to the channel were then resected. Multiple small pockets of purulent/cystic fluid were unroofed. The Specimen was removed and sent for analysis. The resection bed and any bleeding areas were fulgurated/cauterized and the entire area inspected. All bleeding was controlled. Multiple areas were cauterized additional times. A small venous appearing bleeding was noted throughout the prostate. These would cauterize but then continue to have a slow bleed once passed with the scope or after irrigating. These areas were cauterized on the coagulation setting multiple times. The bladder was inspected a final time. The bladder was emptied and irrigated. All specimen and debris was removed. The scope was removed with the bladder partially full. A catheter was placed and balloon elevated. This was easily irrigated. Continuous irrigation was connected. Urine was a light red color and cleared with mild traction on the ennis. The patient was cleaned, aroused from anesthesia, and transferred to the pacu in stable condition having tolerated the procedure well with no complications. I was present and participated in all aspects of the procedure. The patient will be monitored in the PACU until transferred. I attest to the content of the Intraoperative Record and any orders documented therein. Any exceptions are noted below.
--- NOTE | 2020-08-25 12:03 | Anesthesiology Progress Note ---
Date of Service August 25, 2020 Anesthesia Post Procedure Vital Signs Vital Signs: Temp Pulse Pulse Resp BP Pulse Ox 08/25/20 11:59 36.1 C L 97 H 18 123/77 94 08/25/20 11:50 103 H 16 119/77 95 08/25/20 11:40 107 H 20 115/77 95 08/25/20 11:30 36.0 C L 109 H 16 117/66 96 08/25/20 09:05 36.9 C 57 L 20 120/61 95 Transfer of Care Handoff Completed per policy Notes Mental Status: alert / awake / arousable and participated in evaluation Patient Amnestic to Procedure: Yes Nausea / Vomiting: adequately controlled Pain: adequately controlled Airway Patency, RR, SpO2: stable & adequate BP & HR: stable & adequate Hydration State: stable & adequate Anesthetic Complications: no major complications apparent and Pt Satisfied with anesthetic care
[2020-08-25] MEDS ORDERED: oxyCODONE/ACETAMINOPHEN 5mg/325mg TAB PO PRN (13:03)
[2020-08-25] MEDS ORDERED: BELLADONNA/OPIUM SUPP 60 MG SUPP PR PRN (13:03)
[2020-08-25] MEDS ORDERED: MoRPHine SULFATE 2 MG/ML CARP IV PRN (13:03)
--- NOTE | 2020-08-25 13:08 | Hospitalist Consultation ---
Date of Consultation August 25, 2020 Assessment & Plan (1) BPH with obstruction/lower urinary tract symptoms: - S/p urological procedure by Dr. Chapman - Ennis with irrigation as per primary team - POD 0 - Continue dutasteride, tamsulosin (2) Hemiparesis affecting left side as late effect of cerebrovascular accident: - S/p hemorrhagic CVA in 2017 where he was admitted to [facility]. Pt with severe left sided hemiparesis and primarily wheel chair bound- pt is able to pivot on R leg from bed to chair. reports that he can ambulate ~30 feet with walker and assistance from her in their home. - Consider speech therapy pending how he does with bedside swallow - reports tolerates soft and minced foods without difficulty, thin liquids, uses a straw, and does not have issues with choking on food. Cough occasionally but denies hx of aspiration. - PT/OT consults if likely to remain inpatient for > 2 days. Plan for pt to return home after stay. - On xarelto 20 mg daily prior to procedure - resume when safe from surgical standpoint, likely within next 24-48 hours pending ennis irrigation and H&H trend - follow labs (3) Hypertension: - Continue amlodipine- BP stable at 119/70 (4) Hyperlipidemia: - Cont simvastatin 20 mg daily DVT ppx: teds, scds, xarelto to resume when safe from surgical standpoint CODE: FULL Thank you for involving us in the care of Mr. Faust. Please do not hesitate to call with questions or concerns. At this time medicine service will follow along. History of Present Illness Reason for Consultation: Medical management Requesting Physician: Dr. Chapman Attending Physician: Gómez Chapman, II, DO History of Present Illness This is a 69 yo M with PMHx of HTN, HLD, hemorrhagic CVA of the thalamus with residual left sided hemiparesis and wheelchair bound, DVT, arthritis, BPH with LUTS, who presented for transurethral resection of the prostate with extraction and destruction of bladder stones by Dr. Chapman on 08/25/20. Pt was seen and evaluated at bedside. His speech is difficult to understand due to stroke but is intelligible. He reports having pain in his penis and lower abdominal pain when I examine his abdomen. Ennis is in place and draining clear yellow urine. Pt denies any other acute complaints. He is requesting that his is called. Allergies Allergy/AdvReac Type Severity Reaction Status Date / Time bee venom protein (honey bee) Allergy Severe Anaphylaxis Verified 08/25/20 08:59 ciprofloxacin [From Cipro] Allergy Itchy Verified 08/25/20 08:59 Home Medications Medication Instructions Recorded Confirmed Type acetaminophen [Tylenol Extra 500 mg PO Q6H PRN 09/30/18 08/25/20 History Strength] epinephrine 1 mg/mL injection 0.3 mg SQ UD PRN 01/15/19 08/25/20 History solution coenzyme Q10 10 mg capsule 10 mg PO HS cap 11/27/19 08/25/20 History miscellaneous medical supply #1 ea 01/02/20 08/13/20 Rx amlodipine 5 mg tablet 5 mg PO QPM #90 tab 01/23/20 08/25/20 Rx baclofen 10 mg tablet 5 mg PO BID #90 tab 01/23/20 08/25/20 Rx Wheelchair (Manual or Powered) #1 ea 02/27/20 08/13/20 Rx tamsulosin 0.4 mg capsule 0.4 mg PO PM cap 07/23/20 08/25/20 History sulfamethoxazole 800 1 tab PO BID 7 Days #14 tab 08/08/20 08/25/20 Rx mg-trimethoprim 160 mg tablet dutasteride 0.5 mg PO PM 08/19/20 08/25/20 History lactobacillus combination no.4 3,000 mmu cells PO QAM 08/19/20 08/25/20 History [Probiotic] rivaroxaban [Xarelto] 20 mg PO QAM 08/19/20 08/25/20 History simvastatin 20 mg PO PM 08/19/20 08/25/20 History Patient History Medical History (Updated 08/25/20 @ 12:58 by Martha Henderson PA-C) Bladder stones BPH (benign prostatic hyperplasia) Degenerative disc disease DVT (deep venous thrombosis) LLE (09/2018), on Xarelto GERD (gastroesophageal reflux disease) occasional Hemiparesis affecting left side as late effect of cerebrovascular accident "severe" Hemorrhagic stroke 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/[facility]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" residual left sided hemiparesis, dysarthria Hyperlipidemia Hypertension UTI (urinary tract infection) finished treatment on 08/15/20 Wheelchair bound Surgical History History of appendectomy History of carpal tunnel release of both wrists History of colonoscopy History of esophagogastroduodenoscopy (EGD) History of eye surgery retina sx on right eye History of fusion of cervical spine Decreased cervical extension* History of phacoemulsification of cataract of right eye with intraocular lens implantation History of tooth extraction Hx of testicular mass Testicular mass excision PEG (percutaneous endoscopic gastrostomy) status 07/2017 > since removed S/P PRESS CATCHER shunt placed in [place] 06/2017 > r/t stroke Family History Uncle Colorectal cancer Father Myocardial infarction Mother Stroke Other No family history of adverse response to anesthesia Denies family history of Ovarian cancer Prostate cancer Breast cancer Social History (Updated 07/23/20 @ 13:21 by SHAUNNA Jarrell) Smoking Status: Former smoker Tobacco Type: Cigarettes packs per day: 1; Smoking End Date: 5 yrs ago; Second Hand Exposure: No; Do You Dip or Chew Tobacco: No; Tobacco Cessation Education Requested by Patient: No Hx Alcohol Use: No Hx Substance Use: No Preferred Language: Mongolian Communication Ability: Impaired Communication Ability Comment: pt very hard to understand due to stroke hx, helps staff to understand Inbound Ingredient Logistics Specialist Required: No Beliefs That Will Affect Care: None marital status: Current Living Situation: Spouse current occupational status: retired current occupation: worked at [employer] Other Information That Helps Us Care for You: No other: 1 biological child; 1 step-child Feels Safe at Home: Yes Safety Concerns: Feels Safe At This Time caffeine: Yes Dental Care, Regularly: Yes Physical Activity Frequency: Does not Exercise Seatbelt Use: always Sunscreen Use: Yes Assistive Devices: Wheelchair Review of Systems Review of Systems: Constitutional: No fever, sweats or chills Eyes: No diplopia, no worsening or blurred vision ENT: normal hearing, no trouble swallowing, does fine with thin liquids and straw Respiratory: No cough, sputum, dyspnea at rest or on exertion Cardiovascular: No chest pain, tightness or palpitations Abdomen: No pain, nausea, vomiting, diarrhea or constipation : ennis as per hpi, pain in penis Musculoskeletal: No joint pain, calf pain, swelling Neurologic: + left sided deficits in arm, able to move both legs, can pivot on R leg from bed to chair, numbness/tingling, or balance problems Psychiatric: No anxiety or depression Skin: No rash or itch Physical Exam Physical Exam: General: awake, alert, no apparent distress, has a towel situated on his head Head: Normocephalic, atraumatic, +chronic left sided facial droop ENT: PERRL, EOMI, no pharyngeal exudate, mucous membranes moist Chest: Clear to auscultation, on 2L O2, no adventitious breath sounds Cardiac: Regular rate and rhythm, no murmur, no JVD, normal peripheral pulses, good capillary refill Abdominal: NABS x 4 quadrants, soft, nondistended, nontender to palpation, no rebound or guarding : ennis cath in place with [address] irrigation, draining clear yellow urine Extremities: Normal inspection, no peripheral edema or erythema, calfs nontender to palpation Psych: Normal mood and affect Neuro: AAO x 3, left arm deficit with contractures of hand and fingers, able to move both legs and rated 5/5, +facial droop, speech is garbled but intelligible, no peripheral sensory deficits Results & Data Results & Data ([facility]) Vital Signs (Past 12 Hours) Vital Signs Temp Pulse Pulse Resp BP Pulse Ox 08/25/20 12:20 36.8 C 93 H 16 111/76 94 08/25/20 12:10 36.8 C 94 H 17 119/69 94 08/25/20 12:00 97 H 18 123/77 94 08/25/20 11:50 103 H 16 119/77 95 08/25/20 11:40 107 H 20 115/77 95 08/25/20 11:30 36.0 C L 109 H 16 117/66 96 08/25/20 09:05 36.9 C 57 L 20 120/61 95 PG Care Time/CCT Total # of Minutes Spent Total Time Spent with Patient: Total time spent is greater than 50% in coordination of care (as documented) at patient's floor/unit and/or counseling patient: Coding Level of Care Code 81984 Inpt Consult Level 3 Diagnoses BPH with obstruction/lower urinary tract symptoms N40.1; N13.8 Hemiparesis affecting left side as late effect of cerebrovascular accident I69.354 Hypertension I10 Hyperlipidemia E78.2 Hyperlipidemia type: mixed hyperlipidemia (1) Hyperlipidemia Hyperlipidemia type: mixed hyperlipidemia Qualified Code(s): E78.2 - Mixed hyperlipidemia
[2020-08-25 13:54] LABS: Basophils # (auto) 0.01 K/uL (0-0.2); Basophils % (auto) 0.1 %; Eosinophils # (auto) 0.05 K/uL (0-0.5); Eosinophils % (auto) 0.5 %; Hematocrit (blood only) 46.6 % (42-52); Hemoglobin 15.5 g/dL (14.0-18.0); Immature Granulocytes # (auto) 0.03 K/uL (0.00-0.02); Immature Granulocytes % (auto) 0.3 %; Lymphocytes # (auto) 0.58 K/uL (1.2-3.4); Lymphocytes % (auto) 5.3 %; Mean Corpuscular Hemoglobin 30.6 pg (25-34); Mean Corpuscular Hgb Conc 33.3 g/dL (32-36); Mean Corpuscular Volume 92.1 fL (80-100); Neutrophils # (auto) 10.28 K/uL (1.4-6.5); Neutrophils % (auto) 93.8 %; Platelet Count 162 K/uL (130-400); RDW Coefficient of Variation 14.2 % (11.5-14.5); RDW Standard Deviation 47.2 fL (36.4-46.3); Red Blood Count 5.06 M/uL (4.7-6.1); White Blood Count 10.95 K/uL (4.8-10.8)
[2020-08-25 14:22] LABS: BUN Creatinine Ratio 12.2 (10-20); Calcium 7.3 mg/dl (8.5-10.1); Creatinine Clr Calc Pharmacy 79.7 ml/min; Est GFR (African American) 106.6; Est GFR (Non-African American) 91.9; Potassium 4.6 mmol/L (3.5-5.1)
[2020-08-25] MEDS: SODIUM CHLORIDE 0.9% 1000ML 1,000 ML IV SCH (14:50)
[2020-08-25] MEDS: ceFAZolin 2000MG 2,000 MG/15 ML SYR IV SCH (17:23)
[2020-08-25] MEDS: DOCUSATE SODIUM 100 MG CAP PO SCH (20:27)
[2020-08-25] MEDS: BACLOFEN 10 MG TAB PO SCH (20:28)
[2020-08-25] MEDS ORDERED: amLODIPine BESYLATE 5 MG TAB PO SCH (21:00)
[2020-08-25] MEDS ORDERED: SIMVASTATIN 20 MG TAB PO SCH (21:00)
[2020-08-25] MEDS ORDERED: TAMSULOSIN HCL 0.4 MG CAP PO SCH (21:00)
[2020-08-26] MEDS: ceFAZolin 2000MG 2,000 MG/15 ML SYR IV SCH ×2 (01:49→10:36)
[2020-08-26] MEDS: SODIUM CHLORIDE 0.9% 1000ML 1,000 ML IV SCH (03:44)
[2020-08-26] MEDS: DOCUSATE SODIUM 100 MG CAP PO SCH (07:55)
[2020-08-26] MEDS: BACLOFEN 10 MG TAB PO SCH (07:55)
[2020-08-26 08:17] LABS: Basophils # (auto) 0.01 K/uL (0-0.2); Basophils % (auto) 0.1 %; Eosinophils # (auto) 0.01 K/uL (0-0.5); Eosinophils % (auto) 0.1 %; Hematocrit (blood only) 42.7 % (42-52); Hemoglobin 14.5 g/dL (14.0-18.0); Immature Granulocytes # (auto) 0.03 K/uL (0.00-0.02); Immature Granulocytes % (auto) 0.2 %; Lymphocytes # (auto) 1.57 K/uL (1.2-3.4); Lymphocytes % (auto) 11.7 %; Mean Corpuscular Volume 91.2 fL (80-100); Mean Platelet Volume 9.9 fL (7.4-10.4); Monocytes # (auto) 0.96 K/uL (0.11-0.59); Monocytes % (auto) 7.2 %; Neutrophils # (auto) 10.79 K/uL (1.4-6.5); Neutrophils % (auto) 80.7 %; Platelet Count 197 K/uL (130-400); RDW Coefficient of Variation 14.1 % (11.5-14.5); Red Blood Count 4.68 M/uL (4.7-6.1); White Blood Count 13.37 K/uL (4.8-10.8)
--- NOTE | 2020-08-26 08:27 | Hospitalist Progress Note ---
Date of Service August 26, 2020 Assessment & Plan (1) BPH with obstruction/lower urinary tract symptoms: * POD#1 s/p Transurethral Resection Prostate, extraction and destruction of bladder stones with Dr Gómez Chapman on 08/25. EBL 15cc. * Pre-op h/h 15.5/46.6 * H/h dropped to 14.5/42.7 -- acute blood loss from surgery and dilutional from IVF * Ennis maintained with irrigation per primary service at discharge * Continue dutasteride, tamsulosin * Ancef for abx -- PO per primary service * Cr stable, good output * Would resume Xarelto when deemed appropriate by primary service Will obtain CXR as not done prior and crackles/rhonchi on examination. WBC elevated to 13.3k, afebrile. Concerns for possible aspiration given CVA/weakness Speech therapy evaluated -- continue current dietary accommodations. Recent video swallow in [place] and he would not like to have it done again or discussion about thickening liquids to prevent aspiration at this time. (2) Hemiparesis affecting left side as late effect of cerebrovascular accident: * S/p hemorrhagic CVA in 2017 where [place] [facility] Pt with severe left sided hemiparesis and primarily wheel chair bound- pt is able to pivot on R leg from bed to chair. reports that he can ambulate ~30 feet with walker and assistance from her in their home. * Speech therapy consulted -- patient does not want repeat video swallow * CXR pending for possible aspiration * Consider speech therapy pending how he does with bedside swallow - reports tolerates soft and minced foods without difficulty, thin liquids, uses a straw, and does not have issues with choking on food. Cough occasionally but denies hx of aspiration. * PT/OT consults if likely to remain inpatient for > 2 days (plans for possible d/c today) Plan for pt to return home after stay. * On xarelto 20 mg daily prior to procedure - resume when safe from surgical standpoint, likely within next 24-48 hours pending ennis irrigation and H&H trend - follow labs (stable) (3) Hypertension: * Chronic * Stable, BP 114/78 * Continue amlodipine daily (4) Hyperlipidemia: * Cont simvastatin 20 mg daily DVT ppx: teds, scds, xarelto to resume when safe from surgical standpoint CODE: FULL Thank you for involving us in the care of Mr. Faust. If CXR without evidence of aspiration pneumonia, ok for discharge from medical stand point and can have f/u with Urology and PCP outpatient. If patient remains hospitalized, hospitalist service will follow along. Please call with any questions/concerns. Admission and Anticipated Discharge Date Admission Date: August 25, 2020 Subjective Patient evaluated this morning. Feeling well. Asking to get dressed. Was seen by Dr Chapman this morning and states he was told he could possible go this afternoon. Seen by Speech therapy this morning. Sequencing slightly off. They saw him in November/December and recommended video swallow. States he had one done is [place] and does not want another one. Eating/drinking without difficulty although he does require some assistance d/t prior CVA/left sided hemiparesis. No fever, chills, chest pain, shortness of breath, abdominal pain, nausea, vomiting at this time. Urine lightening up since surgery. To maintain ennis at discharge. Discussed obtaining CXR given crackles on exam and no pre-op CXR done. Patient agreeable. If stable, plans for d/c this afternoon per primary service. Review of Systems Review of Systems: All systems reviewed & are unremarkable except as noted in HPI & below Physical Exam Physical Exam: General: awake, alert, no apparent distress, has a towel situated on chest Head: Normocephalic, atraumatic, +chronic left sided facial droop ENT: PERRL, EOMI, no pharyngeal exudate, mucous membranes moist Chest: Clear to auscultation, on room air. crackles to bilaterally bases with coarse rhonci throughout. no wheezing appreciated. no cough Cardiac: Regular rate and rhythm, no murmur, no JVD, normal peripheral pulses, good capillary refill Abdominal: NABS x 4 quadrants, soft, nondistended, nontender to palpation, no rebound or guarding : ennis cath in place with [address] irrigation, draining clear yellow urine with slight pink tinge. no clots noted Extremities: Normal inspection, no peripheral edema or erythema, calfs nontender to palpation Psych: Normal mood and affect Neuro: AAO x 3, left arm deficit with contractures of hand and fingers, able to move both legs and rated 5/5, +facial droop, speech is garbled but intelligible, no peripheral sensory deficits Results & Data Results & Data ([facility]) Vital Signs (Past 12 Hours) Vital Signs Temp Pulse Resp BP BP Pulse Ox 08/26/20 07:10 36.9 C 65 18 114/78 93 08/26/20 03:44 36.8 C 78 20 149/80 H 92 08/25/20 22:39 36.8 C 80 18 110/68 90 Laboratory Results 08/26/20 08/26/20 08/25/20 Range/Units 07:57 07:57 13:31 WBC 13.37 H (4.8-10.8) K/uL RBC 4.68 L (4.7-6.1) M/uL Hgb 14.5 (14.0-18.0) g/dL Hct 42.7 (42-52) % MCV 91.2 (80-100) fL MCH 31.0 (25-34) pg MCHC 34.0 (32-36) g/dL RDW Std Deviation 47.0 H (36.4-46.3) fL RDW Coeff of Aquiles 14.1 (11.5-14.5) % Plt Count 197 (130-400) K/uL MPV 9.9 (7.4-10.4) fL Immature Gran % (Auto) 0.2 % Neut % (Auto) 80.7 % Lymph % (Auto) 11.7 % [place] % (Auto) 7.2 % Eos % (Auto) 0.1 % Baso % (Auto) 0.1 % Neut # (Auto) 10.79 H (1.4-6.5) K/uL Lymph # (Auto) 1.57 (1.2-3.4) K/uL [place] # (Auto) 0.96 H (0.11-0.59) K/uL Eos # (Auto) 0.01 (0-0.5) K/uL Baso # (Auto) 0.01 (0-0.2) K/uL Immature Gran # (Auto) 0.03 H (0.00-0.02) K/uL Sodium 144 142 (136-145) mmol/L Potassium 3.8 D 4.6 (3.5-5.1) mmol/L Chloride 112 H 113 H (98-107) mmol/L Carbon Dioxide 26 22 (21-32) mmol/L Anion Gap 6.0 7.0 (3-11) BUN 8 9 (7-18) mg/dl Creatinine 0.84 0.77 (0.6-1.4) mg/dl Est Cr Clr Drug Dosing 73.0 79.7 ml/min Est GFR ( Amer) 102.8 106.6 Est GFR (Non-Af Amer) 88.7 91.9 BUN/Creatinine Ratio 9.2 L 12.2 (10-20) Glucose 102 H 111 H (70-99) mg/dl Calcium 7.9 L 7.3 L (8.5-10.1) mg/dl 08/25/20 Range/Units 13:31 WBC 10.95 H (4.8-10.8) K/uL RBC 5.06 (4.7-6.1) M/uL Hgb 15.5 (14.0-18.0) g/dL Hct 46.6 (42-52) % MCV 92.1 (80-100) fL MCH 30.6 (25-34) pg MCHC 33.3 (32-36) g/dL RDW Std Deviation 47.2 H (36.4-46.3) fL RDW Coeff of Aquiles 14.2 (11.5-14.5) % Plt Count 162 (130-400) K/uL MPV 10.0 (7.4-10.4) fL Immature Gran % (Auto) 0.3 % Neut % (Auto) 93.8 % Lymph % (Auto) 5.3 % [place] % (Auto) 0.0 % Eos % (Auto) 0.5 % Baso % (Auto) 0.1 % Neut # (Auto) 10.28 H (1.4-6.5) K/uL Lymph # (Auto) 0.58 L (1.2-3.4) K/uL [place] # (Auto) 0.00 L (0.11-0.59) K/uL Eos # (Auto) 0.05 (0-0.5) K/uL Baso # (Auto) 0.01 (0-0.2) K/uL Immature Gran # (Auto) 0.03 H (0.00-0.02) K/uL Sodium (136-145) mmol/L Potassium (3.5-5.1) mmol/L Chloride (98-107) mmol/L Carbon Dioxide (21-32) mmol/L Anion Gap (3-11) BUN (7-18) mg/dl Creatinine (0.6-1.4) mg/dl Est Cr Clr Drug Dosing ml/min Est GFR ( Amer) Est GFR (Non-Af Amer) BUN/Creatinine Ratio (10-20) Glucose (70-99) mg/dl Calcium (8.5-10.1) mg/dl PG Care Time/CCT Total # of Minutes Spent Total Time Spent with Patient: Total time spent is greater than 50% in coordination of care (as documented) at patient's floor/unit and/or counseling patient: Coding Level of Care Code 83733 Subseq Obs Care Lvl 2 Diagnoses BPH with obstruction/lower urinary tract symptoms N40.1; N13.8 Hemiparesis affecting left side as late effect of cerebrovascular accident I69.354 Hypertension I10 Hyperlipidemia E78.2 Hyperlipidemia type: mixed hyperlipidemia (1) Hyperlipidemia Hyperlipidemia type: mixed hyperlipidemia Qualified Code(s): E78.2 - Mixed hyperlipidemia
[2020-08-26 08:54] LABS: BUN Creatinine Ratio 9.2 (10-20); Calcium 7.9 mg/dl (8.5-10.1); Est GFR (African American) 102.8; Est GFR (Non-African American) 88.7; Potassium 3.8 mmol/L (3.5-5.1)
--- NOTE | 2020-08-26 09:11 | Urology Progress Note ---
Date of Service August 26, 2020 Assessment & Plan (1) BPH with obstruction/lower urinary tract symptoms: Postop day 1 from transurethral resection of prostate for obstruction issues. Patient overall has been doing well. Has tolerated diet. Is getting out of bed with assistance though does have considerable issues at baseline due to history of CVA. Has lab work that is pending. Urine is clearing without major issue. Is tolerating catheter. He is having mild irritation and bother but is controlled with medication. No fevers chills. No nausea or vomiting. No considerable problems with anesthesia. Patient is being titrated to clear off of the CBI. If he does continue to improve will likely be able to be discharged home. We will need to maintain catheter for 7 to 10 days with plans for supportive care/pain control and antibiotics for management as outpatient. If patient continues to improve and urine continues to clear likely can be discharged later this morning or early afternoon. We will have nurse practitioners reassess at that time and discharge if able (2) Gross hematuria: (3) Bladder stones: Admission and Anticipated Discharge Date Admission Date: August 25, 2020 Subjective Patient with history of CVA and lower urinary tract issues with obstruction and bladder stones. Postop from TURP for obstruction issues. Patient has been tolerating well. Has noticed some frequency and urgency. Has not had severe pain in the back and flank. Does have occasional burning and irritation. No severe episodes or major changes. No new nausea or vomiting. Had tolerated anesthesia without major problems Review of Systems Review of Systems: All systems reviewed & are unremarkable except as noted in HPI & below Physical Exam Physical Exam: General: Alert in no acute distress. Advanced age. Chronic Medical issues. Chronic hemiparesis/neurologic deficit secondary to previous stroke. Slurred speech at baseline. HEENT: Normocephalic. Inspection normal. Cranial Nerves 2-12 Grossly intact with some hearing issues. Normal inspection of face. Normal inspection of neck. Psychologic: Normal affect. Baseline issues with memory. Respiratory: Nonlabored. No use of accessory muscles. No tachypnea or dyspnea. Cardiovascular: No tachycardia Skin: [place] and Dry. No rashes or visible lesions. Extremities/Lymphatics: Minor Mobility issues. Slow Gait. Abdomen: Soft Non-distended. No rebound or guarding. : Ly in place draining light pink urine with minimal CBI Results & Data ([facility]) Vital Signs (Past 12 Hours) Vital Signs Temp Pulse Resp BP BP Pulse Ox 08/26/20 07:10 36.9 C 65 18 114/78 93 08/26/20 03:44 36.8 C 78 20 149/80 H 92 08/25/20 22:39 36.8 C 80 18 110/68 90 PG Care Time/CCT Total # of Minutes Spent Total Time Spent with Patient: Total time spent is greater than 50% in coordination of care (as documented) at patient's floor/unit and/or counseling patient: Coding Level of Care Code 41495 Subseq Hosp Care Lvl 2 Diagnoses BPH with obstruction/lower urinary tract symptoms N40.1; N13.8 Gross hematuria R31.0 Bladder stones N21.0
--- NOTE | 2020-08-26 11:27 | XRay Report ---
SINGLE VIEW CHEST CLINICAL HISTORY: Crackles on physical examination. FINDINGS: An AP, portable, upright chest radiograph is compared to study dated 11/15/2019. The examina tion is significantly degraded by portable technique and patient rotation. A ventricular shunt cathet er traverses the thorax. The cardiomediastinal silhouette is unremarkable. Emphysema and chronic inte rstitial thickening is similar to previous. There is a small left pleural effusion with left basilar opacities. Mild atelectasis is noted at the right lung base. No pneumothorax is seen. The skeletal st ructures are osteopenic. The bony thorax is grossly intact. IMPRESSION: 1. Emphysema. 2. There is a small left pleural effusion with left basilar opacities. This is similar to previous an d clinical correlation will be required. ACT 112: Negative or not required by law. Electronically signed by: Chin Mendez M.D. 08/26/2020 11:25 AM
--- NOTE | 2020-08-26 13:03 | Discharge Summary ---
Date of Service August 26, 2020 Admission HPI Per Admitting Provider Patient admitted for transurethral resection of prostate with extraction of bladder stones secondary to severe BPH w/ LUTS and bladder stones. Admission Exam Per Admitting Provider General: Alert in no acute distress. Slurred speech at baseline HEENT: Normocephalic Atraumatic. Inspection normal. Psychologic: Normal affect. Respiratory: Nonlabored. Cardiovascular: No tachycardia Skin: [place] and Dry. Principal Diagnosis BPH with obstruction/lower urinary tract symptoms, Bladder stones Discharge Exam Constitutional well developed and well nourished; no acute distress and not ill appearing Eyes no scleral abnormality Respiratory normal respiratory effort; no respiratory distress, no labored breathing and no audible wheezes Cardiovascular Extremities: no pedal edema Gastrointestinal (Abdomen) Inspection/Auscultation: abdomen normal to inspection; abdomen not distended Musculoskeletal Head/Neck/Chest: normocephalic and head atraumatic Skin no rashes, warm and dry Neurologic awake garbled speech Psychiatric Orientation: alert and oriented x 3 Genitourinary Ennis intact, patent, and draining clear yellow urine with minimal pink tinge Discharge Data Allergies Allergy/AdvReac Type Severity Reaction Status Date / Time bee venom protein (honey bee) Allergy Severe Anaphylaxis Verified 08/25/20 08:59 ciprofloxacin [From Cipro] Allergy Itchy Verified 08/25/20 08:59 Consultations 08/25/20 11:43 Consult Hospitalist Routine Procedures Performed Operation Date: 08/25/20 10:05 Actual Procedures p Transurethral Resection Prostate, extraction of bladder stones(Not Applicable) - Gómez Chapman, Hospital Course (1) BPH with obstruction/lower urinary tract symptoms: Patient underwent transurethral resection of prostate and extraction of bladder stones on 08/25/[address] Chapman. Tolerated procedure well, no complications. Hemodynamically stable. Reassessed postop day 1 from transurethral resection of prostate for obstruction issues. Patient overall has been doing well since procedure. He has tolerated diet. Has been out of bed with assistance though does have considerable issues at baseline due to history of CVA. Pain controlled without analgesia. Labs reviewed and as expected post op. CBI titrated to clear and clamped in AM of POD#1, rechecked and urine was clear yellow with minimal pink-tinge. Plan to maintain Ennis catheter for 7 to 10 days with plans for supportive care/pain control and antibiotics for management as outpatient. Discharge home today with ennis catheter. (2) Gross hematuria: (3) Bladder stones: Total Time Total Time Spent Total Time Spent (In Minutes): 16 Discharge Plan Discharge Items Patient Disposition: Home - Self-Care Reason For Visit: Benign Prostatic Hyperplasia Discharge Diagnosis: Benign Prostatic Hyperplasia Activity: Per Instructions section Lifting: No more than 25 pounds Bathing Comment: No tub baths/soaking, okay to shower tomorrow. Sexual Activity: Wait until after follow-up appointment Exercise/Sports: Wait until after follow-up appointment Driving/Machine Use: Do not drive while on narcotic pain medication Non-emergency contact: Surgeon and Urologist Call non-emergency contact if: your pain is not controlled, your pain is concerning for you and your temperature is above 101 Follow-up/Referrals: Angel Irwin DO [Primary Care Provider] - Diet: Regular Addtl Attending Provider Instructions: Please take all medications as prescribed. We will contact you regarding an appointment for your catheter removal in addition to an appointment with Dr. Chapman. Please call our office at [phone] with any questions, concerns or need to reschedule appointments for any reason. We are happy to assist you. Please resume your Xarelto tomorrow, 08/27/20. Please call the office prior to starting if your urine is bright red. Tips for your recovery at home: Dont be alarmed by brownish or reddish blood or clots in your urine. This is a result of the procedure. This may occur off and on for weeks to months after the procedure but should continue to improve. Drink plenty of fluids during the day (enough to keep your urine very light colored). This will help keep a healthy flow of urine. Do not lift >25 lbs until your followup Avoid constipation. Please use a stool softener (Colace) for the first two weeks after your procedure Be sure to finish the antibiotics as prescribed. If you go home with a catheter, please wash tubing where it enters your body twice daily with mild soap (Dove or Dial). Once your catheter is removed, expect some blood in your urine and some burning when you urinate. You should have an appointment to have this removed, if you do not please call our office to arrange. 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 you have been afebrile, however your white count is elevated. For this reason, you are being sent a prescription for Augmentin to take twice daily for 7 days for possible aspiration pneumonia. Please contact your PCP if you develop worsening shortness of breath, cough, or any difficulty breathing. You have been evaluated by speech therapy and while a video swallow has been recommended, you previously stated a recent study at [place] and would not like to repeat this. Please continue with therapy at home and dietary changes (including staying upright for meals and for at least 30 minutes following) as well as small bite-sized pieces that are easier for you to chew. It has been a pleasure being a part of the medical team providing for you while you have been in the hospital. Take care! Pending Studies at Discharge: Yes Studies:: Pathology Stand-Alone Forms: My [facility], Smoking Cessation Medications and DC Order Prescriptions: New oxycodone-acetaminophen [Percocet] 5-325 mg tablet 1 tab PO TID PRN (Reason: pain) Qty: 7 RF: 0 docusate sodium [Colace] 100 mg capsule 100 mg PO BID Qty: 60 RF: 0 sulfamethoxazole-trimethoprim [Bactrim DS] 800-160 mg tablet 1 tab PO BID 5 Days Qty: 10 RF: 0 amoxicillin-pot clavulanate [Augmentin] 875-125 mg tablet 1 tab PO BID 7 Days Qty: 14 RF: 0 Continued epinephrine 1 mg/mL solution 0.3 mg SQ UD PRN (Reason: Anaphylaxis) RF: 0 (DME) misc Misc See Rx Instructions .ROUTE .MEDSUPPLY Qty: 1 RF: 0 amlodipine 5 mg tablet 5 mg PO QPM Qty: 90 RF: 1 baclofen 10 mg tablet 5 mg PO BID Qty: 90 RF: 1 coenzyme Q10 [Co Q-10] 10 mg capsule 10 mg PO HS RF: 0 (DME) Power Wheelchair Device See Rx Instructions .ROUTE .MEDSUPPLY Qty: 1 RF: 0 tamsulosin 0.4 mg capsule 0.4 mg PO PM RF: 0 Probiotic 3 billion cell Capsule 3,000 mmu cells PO QAM RF: 0 simvastatin 20 mg tablet 20 mg PO PM RF: 0 dutasteride 0.5 mg capsule 0.5 mg PO PM RF: 0 acetaminophen [Tylenol Extra Strength] 500 mg Tablet 500 mg PO Q6H PRN (Reason: Pain) RF: 0 Changed Xarelto 20 mg tablet 20 mg PO QAM Qty: 0 RF: 0 Discontinued sulfamethoxazole-trimethoprim [Bactrim DS] 800-160 mg tablet 1 tab PO BID 7 Days Qty: 14 RF: 0 Discharge Orders: Discharge Order (Routine); Ordered 08/26/20 Ordered By: Romelia Marie Admission Data Admit Date/Time: 08/25/20 11:49 Attending Provider: Gómez Chapman Admit Provider: Gómez Chapman Primary Care Provider: Angel Irwin Other Providers: Feliberto Barillas ; Saida Wilkins ; Juan Carlos Almaguer ; Jovanny Rodriguez ; Camila Aragon ; Jesús Lantigua ; Marc Singh ; Francois Espinosa ; Melany Jack ; Maru Webb ; Martha Henderson ; Dez Reddy ; Carol Ricketts ; Mica Mcintyre ; Tobin Kaminski ; Terry Barrow ; Vivian Freire ; Jose Alberto Naranjo ; Juan Toussaint ; Lexy Marie ; Chemo Milan ; Reuben Galeano ; Juan Carlos Mahoney ; Kevin Omer ; Mary Jo Hamilton ; Satish Bullard ; Sandeep Gold Coding Level of Care Code D/C Day Management <30 mins Diagnoses BPH with obstruction/lower urinary tract symptoms N40.1; N13.8 Gross hematuria R31.0 Bladder stones N21.0
== END 2020-08-26 15:35 | disposition home or self-care (01) ==
LOC: ASU 08:37 → 3N 08:37